=== PATIENT | female | born 1935 | race Caucasian/White ===

== ENCOUNTER 2019-02-06 06:00 | Outpatient (RCR) | payer MEDICARE, SELFPAY | END 2019-03-08 00:01 | LOC: SPT 06:00 | PROVIDERS: Family Provider Internal Medicine; Visit Provider Internal Medicine | DX: N39.46 Mixed incontinence (principal) | CPT/HCPCS: 97140; 97530 ==

== ENCOUNTER 2019-03-09 06:00 | Outpatient (RCR) | payer MEDICARE, SELFPAY | END 2019-04-08 23:59 | disposition home or self-care (01) | LOC: SPT 06:00 | PROVIDERS: Family Provider Internal Medicine; PCP Internal Medicine; Visit Provider Internal Medicine | DX: R32 Unspecified urinary incontinence (principal) ==

== ENCOUNTER 2019-04-19 06:00 | Outpatient (RCR) | payer MEDICARE, SELFPAY | END 2019-05-07 23:59 | disposition home or self-care (01) | LOC: SPT 06:00 | PROVIDERS: Family Provider Internal Medicine; PCP Internal Medicine; Visit Provider Internal Medicine | DX: N39.46 Mixed incontinence (principal) | CPT/HCPCS: 97110; 97140; 97530 ==

== ENCOUNTER 2019-05-03 11:01 | Emergency (ER) | payer MEDICARE, SELFPAY ==
[2019-05-03 11:04] VITALS: BP 166/84; PULSE 57; RESP 16; TEMP 36.4; O2SAT 96; BMI 32.4
--- NOTE | 2019-05-03 11:12 | ED_ITS ---
Entered by Raven Farrell, acting as scribe for oTny Adkins MD, [facility] [place] HPI - Syncope General: Chief Complaint: Syncope Stated Complaint: SYNCOPAL EPISODE Time Seen by Provider: 05/03/19 11:07 Source: patient Mode of arrival: EMS Limitations: no limitations History of Present Illness: HPI narrative: 84 yo Female presents to ED with complaint of syncope. Pt states that she was getting her toenails done and she felt like she was going to pass out. Pt states that she guesses she passed out. Pt states that she has been having episodes like this at home. Pt states that her most recent episode was last week. Pt states that these episodes happen at any time. Pt states that she has never had a heart attack but has had CHF in the past. Pt's caregiver states that the episode lasted about 5 minutes according to the staff at the nail salon. Pt's caregiver states that the nail salon staff reported that it took them that long to get the patient roused and get the daughter's information so that they could call her. Pt's daughter states that the staff reported that the patient went unconscious again after giving her information and the patient was just coming around again when she got to the salon. Pt states that she doesn't remember any of the events following her episode. Pt's daughter states that the salon staff indicated that they thought the patient was having a seizure. complaint: loss of consciousness and seizure Onset (ago): minute(s) (Just prior to arrival) Duration of episode: 5 -: minutes(s) Description of event: post-event confusion Prodromal symptoms: lightheaded Witnessed: Yes - by Bystander Context: at rest Injuries sustained associated with event: none Associated symptoms: Reports lightheadedness and weakness; Deny abdominal pain, chest pain, fever(s), headache(s) or nausea History: previous syncopal episode Treatments prior to arrival: none Review of Systems General: Reports: 10 or more systems reviewed and unremarkable except in HPI and below Const: Denies: fever, chills or body aches Eyes: Denies: change in vision or blurry vision ENMT: Denies: throat pain, enlarged tonsils, painful swallowing, hoarseness, mouth pain or swelling of lips/tongue Card: Reports: lightheadedness; Denies: chest pain, palpitations, irregular heart rhythm, edema or swelling of feet/ankles Resp: Denies: shortness of breath, productive cough or non-productive cough GI: Denies: abdominal pain, nausea or vomiting : Denies: flank pain, difficulty urinating, painful urination, urinary frequency, urinary urgency or urinary hesitancy Musc: Denies: neck pain, back pain or extremity swelling Skin/Breast: Denies: rash, itching or redness Neuro: Reports: weakness in extremities, seizure-like activity and other (syncope); Denies: headache or numbness in extremities Endo: Denies: excessive urination, excessive thirst or tired all the time PFSH ED PFSH: Medical History Benign essential hypertension Chronic diastolic heart failure Glaucoma Mixed hyperlipidemia Nonrheumatic mitral valve regurgitation Rectocele 02/07/2019: Patient reports a bulge at the vaginal opening that has been present for at least 6 weeks. On exam, she was noted to have a first-degree vault prolapse, first-degree cystocele, and second to third-degree rectocele. Patient decided to follow for now. Surgical History History of hysterectomy (~1976) KAROLINE, (unsure if has ovaries). Performed at [facility] in [place], [place] Family History Grandmother Diabetes Maternal Mother Heart disease Father Heart disease Daughter Heart disease Stroke Sister Heart disease Stroke Colon cancer Brother Hypertension Social History Smoking and tobacco status: former smoker Alcohol intake: never Additional social history: Well balanced diet Physical Exam Const: COMMON NORMALS: no apparent distress, average body habitus, oriented x3, no limitations, healthy appearing, alert and well nourished HENMT: COMMON NORMALS: normocephalic, head/scalp atraumatic and moist oral mucous membranes HEAD & SCALP: normocephalic and atraumatic Eye: COMMON NORMALS: PERRL, EOMs intact bilaterally, conjunctivae normal and no scleral icterus CONJUNCTIVA: Yes conjunctivae normal PUPIL: Yes PERRL Neck/C-Spine: COMMON NORMALS: full ROM, supple, no meningeal signs, no JVD and no carotid bruits Chest: COMMONS NORMALS: inspection of chest normal and palpation of chest normal Resp: COMMON NORMALS: normal respiratory effort, no retractions, no use of accessory muscles, clear to auscultation bilaterally and percussion normal AUSCULTATION: clear to auscultation bilaterally PERCUSSION: percussion normal Cardio: COMMON NORMALS: no JVD, regular rate, regular rhythm, S1 normal heart sound, S2 normal heart sound, no gallops, no clicks, no murmurs, no rub and peripheral pulses 2+ throughout RATE: regular rate RHYTHM: regular rhythm HEART SOUNDS: S1 normal and S2 normal PERIPHERAL PULSES: pulses 2+ throughout GI: COMMON NORMALS: normal to inspection, nondistended, normoactive bowel sounds, soft to palpation, non-tender, no hepatosplenomegaly, no masses and no bruits PALPATION: Yes soft and Yes no hepatosplenomegaly : COMMON NORMALS: Yes no CVA tenderness BLADDER/KIDNEY EXAM: Yes no CVA tenderness Back/Pelvis: COMMON NORMALS: no CVA tenderness Extremity: COMMON NORMALS: normal to inspection, full ROM, normal capillary refill, no calf tenderness and no pedal edema Neuro: COMMON NORMALS: oriented x3 SENSORIUM/ORIENTATION: Yes alert MENINGEAL SIGNS: Yes no meningeal signs Skin: COMMON NORMALS: no rashes or lesions noted, no wounds, skin turgor normal, no jaundice, no petechiae and no mottling GENERAL SKIN EXAM: no rashes or lesions noted and turgor normal Course Reevaluation(s): Reevaluation #1: Discussed her lab and imaging findings with patient and her daughters. Negative for acute findings other than prerenal azotemia. We will discharge her home with no new medications. Time: 16:02 Vital Signs: Vital signs: Vital Signs Temperature 97.5 F L 05/03/19 11:04 Pulse Rate 59 L 05/03/19 16:21 Respiratory Rate 19 H 05/03/19 16:21 Blood Pressure 176/65 05/03/19 16:21 Pulse Oximetry 95 05/03/19 16:21 MDM - Syncope MDM Narrative: Medical decision making narrative: 84-year-old female patient who presented to the emergency department with complaints of a syncopal episode while getting her nails done. There are reports that she may have had a seizure but this is uncertain at this time. Evaluation in the emergency department was unremarkable and she is discharged home to follow-up with her primary care provider. No new orders were created. BUN creatinine ratio is elevated showing she has likely prerenal dehydration. 2-hour troponin delta is flat. Medical Records: Attestation: I reviewed the patient's medical records. Lab Data: Attestation: I reviewed the patient's lab results. Labs: Lab Results 05/03/19 05/03/19 05/03/19 Range/Units 11:52 11:52 11:52 WBC 6.9 (4.0-10.0) 10^3/ uL RBC 4.07 L (4.1-5.3) 10^6/u L Hgb 12.0 (11.5-15.3) g/dL Hct 37.1 (37.0-47.0) % MCV 91.2 (81-99) fL MCH 29.5 (28.0-34.0) pg MCHC 32.3 (30.0-36.0) g/dL RDW 12.2 (12.1-15.1) % Plt Count 174 (130-400) 10^3/c mm MPV 11.2 H (7.4-10.4) fL Neut % (Auto) 68.0 % Lymph % (Auto) 21.6 % Person % (Auto) 8.9 % Eos % (Auto) 1.3 % Baso % (Auto) 0.1 % Neut # (Auto) 4.7 (1.8-7.7) 10^3/u L Lymph # (Auto) 1.5 (0.8-4.8) 10^3/u L Person # (Auto) 0.6 (0.2-0.9) 10^3/u L Eos # (Auto) 0.1 (0.0-0.8) 10^3/u L Baso # (Auto) 0.0 (0.0-0.1) 10^3/u L Nucleated RBC % (a uto) 0 % Nucleated RBCs # 0.0 /100WBC D-Dimer 0.62 H (0-0.59) ug/mIFE U Sodium 136 (136-145) mmol/L Potassium 3.5 (3.5-5.1) mmol/L Chloride 100 (98-107) mmol/L Carbon Dioxide 22 (22-29) mmol/L Anion Gap 17.5 (5-19) BUN 40 H (8-23) mg/dL Creatinine 1.1 H (0.5-0.9) mg/dL Glucose 201 H (65-115) mg/dL Calcium 9.9 (8.5-10.5) mg/dL Total Bilirubin 0.6 (0.15-1.2) mg/dL AST 19 (0-32) U/L ALT 17 (0-33) U/L Alkaline Phosphata se 98 (35-105) IU/L Troponin T Baselin e (0-10) ng/mL Troponin T 120 Min poarch (0-10) ng/mL Delta Troponin T (0-10) ABS# NT-Pro-B Natriuret Pep 460 H (0-450) pg/mL Total Protein 6.9 (6.6-8.7) g/dL Albumin 3.8 (3.5-5.2) g/dL Globulin 3.1 (1.3-4.6) g/dL TSH 2.81 (0.27-4.20) uIU/ mL Urine Color (Yellow) Urine Appearance (CLEAR) Urine pH (5-7) Ur Specific Gravit y (1.005-1.030) Urine Protein (Negative) Urine Glucose (UA) (Normal) Urine Ketones (Negative) Urine Blood (Negative) Urine Nitrate (Negative) Urine Bilirubin (NEGATIVE) Urine Urobilinogen (Negative) mg/dL Ur Leukocyte Elle ase (Negative) 05/03/19 05/03/19 05/03/19 Range/Units 11:52 12:45 13:59 WBC (4.0-10.0) 10^3/ uL RBC (4.1-5.3) 10^6/u L Hgb (11.5-15.3) g/dL Hct (37.0-47.0) % MCV (81-99) fL MCH (28.0-34.0) pg MCHC (30.0-36.0) g/dL RDW (12.1-15.1) % Plt Count (130-400) 10^3/c mm MPV (7.4-10.4) fL Neut % (Auto) % Lymph % (Auto) % Person % (Auto) % Eos % (Auto) % Baso % (Auto) % Neut # (Auto) (1.8-7.7) 10^3/u L Lymph # (Auto) (0.8-4.8) 10^3/u L Person # (Auto) (0.2-0.9) 10^3/u L Eos # (Auto) (0.0-0.8) 10^3/u L Baso # (Auto) (0.0-0.1) 10^3/u L Nucleated RBC % (a uto) % Nucleated RBCs # /100WBC D-Dimer (0-0.59) ug/mIFE U Sodium (136-145) mmol/L Potassium (3.5-5.1) mmol/L Chloride (98-107) mmol/L Carbon Dioxide (22-29) mmol/L Anion Gap (5-19) BUN (8-23) mg/dL Creatinine (0.5-0.9) mg/dL Glucose (65-115) mg/dL Calcium (8.5-10.5) mg/dL Total Bilirubin (0.15-1.2) mg/dL AST (0-32) U/L ALT (0-33) U/L Alkaline Phosphata se (35-105) IU/L Troponin T Baselin e 25 H (0-10) ng/mL Troponin T 120 Min poarch 21.55 H (0-10) ng/mL Delta Troponin T -3.45 L (0-10) ABS# NT-Pro-B Natriuret Pep (0-450) pg/mL Total Protein (6.6-8.7) g/dL Albumin (3.5-5.2) g/dL Globulin (1.3-4.6) g/dL TSH (0.27-4.20) uIU/ mL Urine Color Yellow (Yellow) Urine Appearance Clear (CLEAR) Urine pH 7 (5-7) Ur Specific Gravit y 1.005 (1.005-1.030) Urine Protein Neg (Negative) Urine Glucose (UA) Norm (Normal) Urine Ketones Negative (Negative) Urine Blood Neg (Negative) Urine Nitrate Negative (Negative) Urine Bilirubin Neg (NEGATIVE) Urine Urobilinogen Norm (Negative) mg/dL Ur Leukocyte Elle ase Negative (Negative) Imaging Data^: CXR: Radiologist's impression: [place] [address] XRay Report Signed Patient: Zaki Pantoja #: [id number] : 5Acct#:[id number] Age/Sex: 84 / FADM Date: 05/03/19 Loc: ERRoom/Bed: Attending Dr: Ordering Provider/Ordering MD: Tony Adkins MD, [facility] [place] Date of Service: 05/03/19 Procedure(s): XR chest 1V portable [id number] Accession Number(s): [id number] Report Number: [id number] WS: [id number] Portable AP upright chest, 05/03/2019 Clinical Data: syncope Comparison: Portable chest, 07/30/2018. Findings: No nodules, masses or effusions are seen. The heart is normal. The pulmonary vascularity is not increased. No pneumonia or pneumothorax is seen. The aortic arch and descending aorta are minimally tortuous XR/XR chest 1V portable 78831 Impression: Atherosclerosis. Dictated By:Corrina Gusman MD Signed By:Corrina Gusman MDSigned Date/Time:05/03/19 1140 DD/ 1138 CT Head: Radiologist's impression: [place] [address] CT Scan Report Signed Patient: Zaki Pantoja #: [id number] : 5Acct#:[id number] Age/Sex: 84 / FADM Date: 05/03/19 Loc: ERRoom/Bed: Attending Dr: Ordering Provider/Ordering MD: Tony Adkins MD, [facility] [place] Date of Service: 05/03/19 Procedure(s): CT head wo con* [id number] Accession Number(s): [id number] Report Number: [id number] WS: [id number] CT HEAD TECHNIQUE: Noncontrast CT of the head obtained from the skullbase to the vertex. CLINICAL INFORMATION: syncope COMPARISON: 8 ,018 DLP: 754.[address] scans at [facility] use at least one of these dose optimization techniques: automated exposure control; mA and/or kV adjustment per patient size (includes targeted exams where dose is matched to clinical indication); or iterative reconstruction. FINDINGS: No evidence of intracranial hemorrhage or mass effect. Ventricular system and basal cisterns are patent. Mild small vessel changes with moderate parenchymal volume loss. Incidental dystrophic calcification along the falx. No extra-axial fluid collections. No evidence of mass or mass effect. Normal lincoln-white differentiation. Paranasal sinuses and mastoid air cells are well aerated. .Normal visualized soft tissues. Notified Tony Adkins MD MSM at 05/03/2019 12:[address]/CT head wo con* [id number] IMPRESSION: 1. No evidence of intracranial hemorrhage or mass effect. 2. Mild small vessel changes with moderate parenchymal volume loss. 3. Incidental dystrophic calcification along the falx is unchanged. 4. No acute intracranial findings Dictated By:Merrick Wheat MD Signed By:Merrick Wheat MDSigned Date/Time:05/03/19 1232 DD/ 1228 EKG Data^: EKG 1: Attestation: I personally reviewed and interpreted this EKG as follows: EKG interpretation date: 05/03/19 EKG interpretation time: 11:14 Prior EKG tracings: not available for review Interpretation: Sinus bradycardia. Heart rate 52 bpm. Left axis deviation. Right bundle branch block. EKG 2: Attestation: I personally reviewed and interpreted this EKG as follows: EKG interpretation date: 05/03/19 EKG interpretation time: 13:34 Prior EKG tracings: available for review Interpretation: Unchanged from earlier today other than no longer with sinus bradycardia. Normal sinus rhythm Discharge Plan Discharge Patient Disposition: Home, Self-Care Clinical Impression: Dehydration Syncope Qualifiers: Syncope type: unspecified Qualified Code(s): R55 - Syncope and collapse Condition: Stable Prescriptions: Continued isosorbide mononitrate 120 mg tablet extended release 24 hr 120 mg PO DAILY RF: 0 pantoprazole [address] for susp in packet 40 mg PO DAILY RF: 0 brimonidine 0.2 % drops 1 drop ophthalmic (eye) Q8H RF: 0 furosemide 40 mg tablet 40 mg PO DAILY RF: 0 atorvastatin 20 mg tablet 20 mg PO DAILY RF: 0 PreserVision AREDS [id number] capsule 1 cap PO BID RF: 0 timolol maleate 0.5 % drops 1 drop ophthalmic (eye) DAILY RF: 0 Travatan Z 0.004 % drops 1 drop ophthalmic (eye) DAILY RF: 0 spironolactone 25 mg tablet 25 mg PO DAILY RF: 0 oxybutynin chloride 10 mg tablet extended release 24hr 10 mg PO DAILY Qty: 30 RF: 0 carvedilol 12.5 mg Tablet 12.5 mg PO BID RF: 0 losartan 100 mg Tablet 100 mg PO DAILY RF: 0 Discharge Orders: Discharge Order (Routine); Ordered 05/03/19 Ordered By: Tony Adkins Referrals: Mely Combs MD [Primary Care Provider] - 1-3 days Patient Instructions: Dehydration (ED), Syncope (ED) Activity Restrictions/Additional Instructions: Follow-up with your primary care provider tomorrow for further evaluation. You might also need an ultrasound of your carotid arteries. Return for any new or worsening symptoms. Drink plenty of fluids to keep well-hydrated Discharge Date/Time: 05/03/19 16:21 Coding Level of Care Code ED Section Hand for Chg Fwd Exam Comprehensive The documentation recorded by the Bud lovett Carmen, accurately reflects the service I personally performed and the decisions made by Lucille guevara Adegoke I, MD, [facility] [place] May 03, 2019 11:01
--- NOTE | 2019-05-03 11:16 | PC.NURSE ---
ekg done at this time and shown to ed provider.
--- NOTE | 2019-05-03 11:20 | XR_ITS ---
WS: [id number] Portable AP upright chest, 05/03/2019 Clinical Data: syncope Comparison: Portable chest, 07/30/2018. Findings: No nodules, masses or effusions are seen. The heart is normal. The pulmonary vascularity is not increased. No pneumonia or pneumothorax is seen. The aortic arch and descending aorta are minima lly tortuous XR/XR chest 1V portable [id number] Impression: Atherosclerosis.
--- NOTE | 2019-05-03 11:20 | CT_ITS ---
WS: [id number] CT HEAD TECHNIQUE: Noncontrast CT of the head obtained from the skullbase to the vertex. CLINICAL INFORMATION: syncope COMPARISON: 8 21,018 DLP: 754.[address] scans at [facility] use at least one of these dose optimization techniques: automat ed exposure control; mA and/or kV adjustment per patient size (includes targeted exams where dose is matched to clinical indication); or iterative reconstruction. FINDINGS: No evidence of intracranial hemorrhage or mass effect. Ventricular system and basal cisterns are foley nt. Mild small vessel changes with moderate parenchymal volume loss. Incidental dystrophic calcificat ion along the falx. No extra-axial fluid collections. No evidence of mass or mass effect. Normal lincoln -white differentiation. Paranasal sinuses and mastoid air cells are well aerated. .Normal visualized soft tissues. Notified Tony Adkins MD MSM at 05/03/2019 12:[address]/CT head wo con* [id number] IMPRESSION: 1. No evidence of intracranial hemorrhage or mass effect. 2. Mild small vessel changes with moderate parenchymal volume loss. 3. Incidental dystrophic calcification along the falx is unchanged. 4. No acute intracranial findings
--- NOTE | 2019-05-03 11:23 | ECG_ITS ---
Measurements Intervals [place] Rate: 56 P: 93 FL: 202 QRS: -38 QRSD: 145 T: 43 QT: 437 QTc: 425 SINUS BRADYCARDIA MARKED LEFT AXIS DEVIATION [QRS AXIS < -30] RIGHT BUNDLE BRANCH BLOCK [120+ ms QRS DURATION, UPRIGHT V1, 40+ ms S IN I/ I/aVL/V4/V5/V6] Compared to ECG 07/30/2018 20:49:05 Left-axis deviation now present Sinus rhythm no longer present Left anterior fascicular block no longer present Myocardial infarct finding no longer present Electronically Signed On 05-03-2019 19:44:54 COLLECTIONS ASSOCIATE by Kesha Toribio M.D. [email or web address]
[2019-05-03 11:57] LABS: Basophils % 0.1 %; Eosinophils # 0.1 10^3/uL (0.0-0.8); Eosinophils % 1.3 %; Hematocrit 37.1 % (37.0-47.0); Lymphocytes # 1.5 10^3/uL (0.8-4.8); Lymphocytes % 21.6 %; Mean Corpuscular HGB Conc 32.3 g/dL (30.0-36.0); Mean Corpuscular Hemoglobin 29.5 pg (28.0-34.0); Mean Corpuscular Volume 91.2 fL (81-99); Mean Platelet Volume 11.2 fL (7.4-10.4); Monocytes # 0.6 10^3/uL (0.2-0.9); Monocytes % 8.9 %; Neutrophils # 4.7 10^3/uL (1.8-7.7); Nucleated Red Blood Cells % 0 %; Platelet Count 174 10^3/cmm (130-400); Red Blood Count 4.07 10^6/uL (4.1-5.3); Red Cell Distribution Width 12.2 % (12.1-15.1); White Blood Count 6.9 10^3/uL (4.0-10.0)
[2019-05-03 12:23] LABS: Troponin(5th) Baseline 25 ng/mL (0-10)
[2019-05-03 12:30] LABS: Alanine Aminotransferase 17 U/L (0-33); Albumin Level 3.8 g/dL (3.5-5.2); Alkaline Phosphatase 98 IU/L (35-105); Anion Gap 17.5 (5-19); Aspartate Amino Transferase 19 U/L (0-32); Blood Urea Nitrogen 40 mg/dL (8-23); Calcium 9.9 mg/dL (8.5-10.5); Carbon Dioxide 22 mmol/L (22-29); Chloride 100 mmol/L (98-107); D Dimer 0.62 ug/mIFEU (0-0.59); Globulin 3.1 g/dL (1.3-4.6); Glucose 201 mg/dL (65-115); NT Pro B Type Natriuretic Pept 460 pg/mL (0-450); Potassium 3.5 mmol/L (3.5-5.1); Sodium 136 mmol/L (136-145); Thyroid Stimulating Hormone 2.81 uIU/mL (0.27-4.20); Total Bilirubin 0.6 mg/dL (0.15-1.2); Total Protein 6.9 g/dL (6.6-8.7)
[2019-05-03 12:56] VITALS: O2SAT 96
[2019-05-03 13:05] LABS: Add Urine Microscopic? NO
[2019-05-03 13:17] LABS: Bilirubin Urine Neg (NEGATIVE); Blood Urine Neg (Negative); Glucose Urine UA Norm (Normal); Ketones Urine Negative (Negative); Leukocyte Esterase Urine Negative (Negative); Nitrate Urine Negative (Negative); Protein Urine Neg (Negative); Specific Gravity, Urine 1.005 (1.005-1.030); Urine Appearance Clear (CLEAR); Urine Color Yellow (Yellow); Urobilinogen Urine Norm (Negative); pH Urine 7 (5-7)
[2019-05-03] MEDS: sodium chloride 0.9% 1,000 ML 250 ML IV (13:24)
[2019-05-03 14:21] LABS: Troponin 5 2HR 21.55 ng/mL (0-10)
[2019-05-03 14:23] LABS: Troponin 5 2HR Delta -3.45 ABS# (0-10)
[2019-05-03 16:21] VITALS: BP 176/65; PULSE 59; RESP 19; O2SAT 95
--- NOTE | 2019-05-03 17:23 | ECG_ITS ---
Measurements Intervals [place] Rate: 69 P: 73 NH: 200 QRS: -45 QRSD: 142 T: 45 QT: 416 QTc: 447 SINUS RHYTHM RIGHT BUNDLE BRANCH BLOCK [120+ ms QRS DURATION, UPRIGHT V1, 40+ ms S IN I/aVL/V4/V5/V6] LEFT ANTERIOR FASCICULAR BLOCK [QRS AXIS <= -45, QR IN I, RS IN II] Compared to ECG 07/30/2018 20:49:05 Myocardial infarct finding no longer present Electronically Signed On 05-03-2019 20:00:16 REPAIR MECHANIC by Kesha Toribio M.D. [email or web address]
== END 2019-05-03 16:21 | disposition home or self-care (01) ==
PROVIDERS: Emergency Provider Family Medicine; Family Provider Internal Medicine; PCP Internal Medicine
DX: R55 Syncope and collapse (principal); E86.0 Dehydration; I11.0 Hypertensive heart disease with heart failure; I50.22 Chronic systolic (congestive) heart failure; E78.2 Mixed hyperlipidemia; I34.0 Nonrheumatic mitral (valve) insufficiency; H40.9 Unspecified glaucoma; I70.0 Atherosclerosis of aorta; I45.10 Unspecified right bundle-branch block; Z87.891 Personal history of nicotine dependence; Z82.3 Family history of stroke; Z82.49 Family history of ischemic heart disease and other diseases of the circulatory system
CPT/HCPCS: 36415; 70450; 71045; 80053; 81003; 83880; 84443; 84484; 85025; 85378; 93005; 96360; 96361; 99283; A9270; J7030

== ENCOUNTER 2019-05-24 13:27 | Outpatient (CLI) | payer MEDICARE, SELFPAY ==
--- NOTE | 2019-05-24 13:38 | USCV_ITS ---
Marsha Pantoja Age: 84 Gender: F : 1935 Exam Date: 05/24/2019 14:00 Ordering Phys: Mely Combs MD Technologist: Sherly Armstrong [place] [facility] [place]: SYNOPE BP: 162 / 129 HR: 58 Rhythm: Sinus Technical Quality: Adequate MEASUREMENTS (Male / Female) Normal Values 2D ECHO LV Diastolic Diameter PLAX 3.6 cm 4.2 - 5.9 / 3.9 - 5.3 cm LV Systolic Diameter PLAX 2.5 cm LV Chamber Size 2.1 cm IVS Diastolic Thickness 0.9 cm 0.6 - 1.0 / 0.6 - 0.9 cm IVS Systolic Thickness 1.0 cm LVPW Diastolic Thickness 1.3 cm 0.6 - 1.0 / 0.6 - 0.9 cm LVPW Systolic Thickness 1.5 cm RV Chamber Size 2.8 cm LVOT Diameter 2.0 cm LV Ejection Fraction 2D Teich 57.1 % LV Ejection Fraction MOD 2C 71.5 % LV Ejection Fraction 2C AL 71.7 % LA Diameter 3.7 cm LA Width 3.4 cm LA Height 4.5 cm RA Width 2.6 cm RA Height 4.0 cm Aorta at Sinotubular Diameter 2.4 cm M-MODE LV Diastolic Diameter MM 3.5 cm 4.2 - 5.9 / 3.9 - 5.3 cm LV Systolic Diameter MM 2.5 cm LV Ejection Fraction MM Teich 57.8 % IVS Diastolic Thickness MM 0.6 cm 0.6 - 1.0 / 0.6 - 0.9 cm IVS Systolic Thickness MM 0.8 cm LVPW Diastolic Thickness MM 0.6 cm 0.6 - 1.0 / 0.6 - 0.9 cm LVPW Systolic Thickness MM 1.5 cm Aortic Annulus Diameter 3.0 cm LA Ao Ratio MM 1.2 MV E Point Septal Separation 1.0 cm DOPPLER AV Peak Velocity 197.0 cm/s LVOT Peak Velocity 122.0 cm/s AV Area Cont Eq vti 2.2 cm squared AV Area Cont Eq pk 2.0 cm squared MV Area PHT 2.1 cm squared Mitral E to A Ratio 0.6 MV E' Velocity 5.0 cm/s Mitral E to MV E' Ratio 12.7 Mitral E to LV E' Lateral Ratio 13.7 Mitral E to LV E' Septal Ratio 12.0 TR Peak Velocity 243.0 cm/s TR Peak Gradient 23.5 mmHg PV Peak Velocity 113.0 cm/s RV Acceleration Time 0.1 s RV Ejection Time 0.3 s RV AcT/ET 0.2 FINDINGS Left Ventricle Normal left ventricular size and systolic function, EF 66 %. Mild left ventricular hypertrophy. Grade I/IV diastolic dysfunction (abnormal relaxation filling pattern), normal to mildly elevated filling pressures. Right Ventricle The right ventricle is normal in size and function. Right Atrium The right atrium is normal in size. Left Atrium Left atrium, upper limit of normal size. Mitral Valve Thickened mitral valve. Trace mitral valve regurgitation. Aortic Valve Thickened aortic valve with restricted mobility. Tricuspid Valve Mild tricuspid valve regurgitation. Pulmonic Valve Mild pulmonary valve regurgitation. Pericardium Normal pericardium without effusion. Aorta Normal ascending aorta dimension. CONCLUSIONS Normal left ventricular size and systolic function, EF 66 %. Mild left ventricular hypertrophy. Grade I/IV diastolic dysfunction (abnormal relaxation filling pattern), normal to mildly elevated filling pressures. Thickened mitral valve. Trace mitral valve regurgitation. Features of aortic valve sclerosis. Mild pulmonary cannot tricuspid valve regurgitation. Estimated pulmonary artery peak systolic pressure 28 mmHg There is no pericardial effusion. There are no intracardiac masses. Compared to the study from 07/31/2018, the gradient across the aortic valve has decreased Dr Kesha Toribio MD FAC (Electronically Signed) Final Date: 25 May 2019 08:38 S
--- NOTE | 2019-05-24 13:38 | USCV_ITS ---
ScarlettMarsha leslie Age: 84 Gender: F : 1935 Exam Date: 05/24/2019 14:15 Ordering Phys: Mely Combs MD Technologist: Sherly Armstrong [place] [facility] [place]: [place]OPE Risk Factors: Previous Vascular Surgery: Right Brachial BP: / Left Brachial BP: / Right Left Velocity (cm/s) Spectral Plaque Velocity (cm/s) Spectral Plaque Syst/Diast Broadening Syst/Diast Broadening 48.50/ 9.90 Prox CCA 70.30 / 17.40 69.00/ 17.70 Mid CCA 63.30 / 18.60 57.20/ 15.80 Distal CCA 41.90 / 14.00 39.80/ 14.80 Prox ICA 25.60 / 8.90 57.70/ 18.70 Mid ICA 36.60 / 13.10 52.70/ 18.70 Distal ICA 41.30 / 17.20 58.20 ECA 59.10 0.84 ICA/CCA 0.65 Antegrade Vertebral Antegrade 27.90/ 6.00 cm/s 15.00/ 3.10 cm/s Tri Subclavian Tri 41.60 38.50 FINDINGS Minimal plaques at the bifurcations bilaterally. Intimal thickening and minimal plaques in the common carotid arteries bilaterally. Antegrade flow in the vertebral arteries bilaterally. Normal Doppler flow velocities in the external carotid arteries bilaterally CONCLUSIONS Minimal plaques at the bifurcations bilaterally. Intimal thickening and minimal plaques in the common carotid arteries bilaterally. No significant stenosis, based on the above findings. No previous studies are available for comparison. Dr Kesha Toribio MD [facility] (Electronically Signed) Final Date: 25 May 2019 08:41 S
== END 2019-05-24 13:28 | disposition home or self-care (01) ==
PROVIDERS: Family Provider Internal Medicine; PCP Internal Medicine; Referring Provider Internal Medicine Cardiovascular Disease; Visit Provider Internal Medicine
DX: I08.1 Rheumatic disorders of both mitral and tricuspid valves (principal); R55 Syncope and collapse
CPT/HCPCS: 93306; 93880

== ENCOUNTER 2019-05-24 20:02 | Emergency (ER) | payer MEDICARE, SELFPAY ==
[2019-05-24 20:12] VITALS: BP 239/91; PULSE 58; RESP 16; TEMP 36.4; O2SAT 95; BMI 32.5
[2019-05-24 23:22] VITALS: BP 209/108; PULSE 58; RESP 17; O2SAT 96
--- NOTE | 2019-05-24 23:50 | ED_ITS ---
Entered by Mera Willard, acting as scribe for HPI - General Adult General: Chief complaint: General Medical Stated complaint: bp problems Time Seen by Provider: 05/24/19 23:48 Source: patient Mode of arrival: ambulatory Limitations: no limitations History of Present Illness: HPI narrative: 84 yo f came to the er pov for blood pressure problems. Onset was tonight. Pt states that she that they have not changed any medication. Pt has not been out of any medication and has not taken anything over thr counter. Family said that she had an ultrasound early today and pt was having some hypertension issues. Pt has had a temporal headache along with being weak for several days. No difficulty with speech or swallowing no difficulty with ambulation. No nausea vomiting or diarrhea. No vision changes. MD complaint: high blood pressure Onset (ago): day(s) (today) Radiation: non-radiation Severity: mild Relieving factors: none Exacerbating factors: none Associated symptoms: Reports headache(s) (temporal) and weakness; Deny chest pain, dyspnea, malaise, nausea, rash or vomiting Treatments prior to arrival: none Review of Systems General: Reports: other (negative unless marked) Const: Denies: fever, chills, body aches, change in appetite, fatigue or malaise ENMT: Denies: throat pain, ear pain, nasal discharge or nasal congestion Card: Denies: chest pain, edema, shortness of breath on exertion or shortness of breath when lying down Resp: Denies: shortness of breath, productive cough or non-productive cough GI: Denies: abdominal pain, nausea, vomiting, vomiting blood, coffee grounds in vomit, diarrhea, constipation, bloating, blood in stool or black tarry stool : Denies: flank pain, difficulty urinating, painful urination, urinary frequency or urinary urgency Skin/Breast: Denies: rash or itching Neuro: Reports: headache (temporal) and weakness in extremities PFSH ED PFSH: Social History Smoking and tobacco status: never smoked Alcohol intake: never Additional social history: Well balanced diet Physical Exam Const: COMMON NORMALS: no apparent distress GENERAL APPEARANCE: cooperative and comfortable ORIENTATION/CONSCIOUSNESS: Yes awake, Yes oriented to person, Yes oriented to place and Yes oriented to time HENMT: COMMON NORMALS: normocephalic, head/scalp atraumatic, hearing grossly normal bilaterally, external ears normal, EAC's normal, TM's normal bilaterally, nasal mucous membranes and turbinates normal, moist oral mucous membranes and oropharynx normal HEAD & SCALP: normocephalic and atraumatic NOSE: nasal mucous membranes and turbinates normal EXTERNAL EAR: Yes external ears normal EXTERNAL AUDITORY CANAL: EAC's normal TYMPANIC MEMBRANE: TM's normal bilaterally Eye: COMMON NORMALS: PERRL, EOMs intact bilaterally, conjunctivae normal and no scleral icterus CONJUNCTIVA: Yes conjunctivae normal PUPIL: Yes PERRL Neck/C-Spine: COMMON NORMALS: full ROM, no lymphadenopathy, supple and no JVD Lymph: LYMPHATIC: no lymphadenopathy noted and no lymphedema noted Resp: COMMON NORMALS: normal respiratory effort, no retractions, no use of accessory muscles and clear to auscultation bilaterally AUSCULTATION: clear to auscultation bilaterally Cardio: COMMON NORMALS: no JVD, regular rate, regular rhythm and no murmurs RATE: regular rate RHYTHM: regular rhythm GI: COMMON NORMALS: soft to palpation and no hepatosplenomegaly AUSCULTATION: Yes normoactive bowel sounds PALPATION: Yes soft, No tender, No guarding and Yes no hepatosplenomegaly Extremity: COMMON NORMALS: normal to inspection, normal capillary refill, no clubbing, cyanosis or edema, no calf tenderness and no pedal edema Neuro: SENSORIUM/ORIENTATION: Yes oriented to person, Yes oriented to place and Yes oriented to time Skin: COMMON NORMALS: no rashes or lesions noted GENERAL SKIN EXAM: no rashes or lesions noted Course ED course: Patient blood pressures improved with hydralazine we will go ahead and discharge home started on hydralazine 25 3 times daily based on her heart rate she is maxed out on carvedilol she is maxed out on losartan she is had trouble in the past with amlodipine. She follow-up with her primary care doctor the next 5 to 7 days advised keeping blood pressure log daily blood pressures bring that to her next appointment to review and adjust medications return if has problems. Vital Signs: Vital signs: Vital Signs Temperature 97.6 F 05/24/19 20:12 Pulse Rate 68 05/25/19 02:09 Respiratory Rate 18 05/25/19 02:09 Blood Pressure 153/75 05/25/19 02:09 Pulse Oximetry 94 05/25/19 02:09 [facility] - General Adult Lab Data: Labs: Lab Results 05/24/19 05/24/19 Range/Units 21:15 21:15 WBC Cancelled Corrected WBC Cancelled RBC Cancelled Hgb Cancelled Hct Cancelled MCV Cancelled MCH Cancelled MCHC Cancelled RDW Cancelled Plt Count Cancelled MPV Cancelled Gran % Cancelled Neut % (Auto) Cancelled Lymph % (Auto) Cancelled [place] % (Auto) Cancelled Eos % (Auto) Cancelled Baso % (Auto) Cancelled Neut # (Auto) Cancelled Lymph # (Auto) Cancelled [place] # (Auto) Cancelled Eos # (Auto) Cancelled Baso # (Auto) Cancelled Absolute Gran (aut o) Cancelled Nucleated RBC % (a uto) Cancelled Nucleated RBCs # Cancelled Sodium Cancelled Potassium Cancelled Chloride Cancelled Carbon Dioxide Cancelled Anion Gap Cancelled BUN Cancelled Creatinine Cancelled GFR Calculation Cancelled Glucose Cancelled Calculated Osmolal ity Cancelled Calcium Cancelled Total Bilirubin Cancelled AST Cancelled ALT Cancelled Alkaline Phosphata se Cancelled Total Protein Cancelled Albumin Cancelled Globulin Cancelled Discharge Plan Discharge Patient Disposition: Home, Self-Care Clinical Impression: Benign essential hypertension Condition: Stable Prescriptions: New hydralazine 25 mg tablet 25 mg PO TID Qty: 30 RF: 0 No Action isosorbide mononitrate 120 mg tablet extended release 24 hr 120 mg PO DAILY RF: 0 pantoprazole [address] for susp in packet 40 mg PO DAILY RF: 0 brimonidine 0.2 % drops 1 drop ophthalmic (eye) Q8H RF: 0 furosemide 40 mg tablet 40 mg PO DAILY RF: 0 atorvastatin 20 mg tablet 20 mg PO DAILY RF: 0 PreserVision AREDS [id number] capsule 1 cap PO BID RF: 0 timolol maleate 0.5 % drops 1 drop ophthalmic (eye) DAILY RF: 0 Travatan Z 0.004 % drops 1 drop ophthalmic (eye) DAILY RF: 0 spironolactone 25 mg tablet 25 mg PO DAILY RF: 0 magnesium L-lactate [Magtab] 84 mg tablet extended release 84 mg PO BID 30 Days Qty: 60 RF: 4 oxybutynin chloride 10 mg tablet extended release 24hr 10 mg PO DAILY Qty: 30 RF: 0 carvedilol 12.5 mg Tablet 12.5 mg PO BID RF: 0 losartan 100 mg Tablet 100 mg PO DAILY RF: 0 Discharge Orders: Discharge Order (Routine); Ordered 05/25/19 Ordered By: Gerald Silva Referrals: Mely Combs MD [Primary Care Provider] - Discharge Diet: Usual diet Discharge Activity: Increase activity as tolerated Activity Restrictions/Additional Instructions: Follow-up with your primary care doctor within the next 4 to 5 days to recheck on your blood pressure Discharge Date/Time: 05/25/19 02:09 Coding Level of Care Code ED Smooth Stucco Resurfacer for Chg Fwd Exam Comprehensive The documentation recorded by the Sudheer lovett Stephanie Lyn, accurately reflects the service I personally performed and the decisions made by Shira guevara Curtis L, DO May 24, 2019 20:02
[2019-05-25 00:12] VITALS: BP 198/87; PULSE 64; RESP 18; O2SAT 96
[2019-05-25] MEDS: hyDRALAzine 20 mg/mL INJ 1 mL 10 MG IVP (01:25)
[2019-05-25 02:09] VITALS: BP 153/75; PULSE 68; RESP 18; O2SAT 94
== END 2019-05-25 02:09 | disposition home or self-care (01) ==
PROVIDERS: Emergency Provider Family Medicine; Family Provider Internal Medicine; PCP Internal Medicine
DX: I10 Essential (primary) hypertension (principal)
CPT/HCPCS: 12345; 36415; 80053; 85025; 96374; 99282; 99283; A9270; J0360

== ENCOUNTER 2020-01-18 15:25 | Outpatient (CLI) | payer MEDICARE, SELFPAY ==
--- NOTE | 2020-01-18 15:30 | MR_ITS ---
WS: [id number] MRI HEAD WITHOUT CONTRAST TECHNIQUE: Sagittal T1, T2 axial, T2 axial FLAIR, axial and coronal T1 images, axial susceptibility w eighted imaging, axial diffusion weighted images, and coronal T2 images were obtained. CLINICAL INFORMATION: APHASIA COMPARISON: CT May 03, 2019 and MRI FINDINGS: No evidence of restricted diffusion to suggest acute ischemia. Ventricular system and basal cisterns are patent. Moderate small vessel changes. Moderate parenchymal volume loss. Small vessel changes in the shaista. Normal posterior fossa. Normal vascular flow voids at the skull base. No extra-axial fluid collections. Mild mucosal thickening in the paranasal sinuses and right sphenoid sinus. Mastoid air c ells are well aerated. No hemosiderin on the susceptibility weighted images. Dystrophic calcification along the sagittal sin us. Normal optic chiasm and pituitary infundibulum. Mild to moderate symmetric atrophy involving the temp oral lobes and hippocampal formations. MR/MR head wo con* [id number] IMPRESSION: 1. No evidence of restricted diffusion to suggest acute ischemia. 2. Moderate small vessel changes with moderate parenchymal volume loss. Small vessel changes progressed since MRI in 2017 3. Mild to moderate symmetric atrophy involving the temporal lobes and hippoca mpal formations. 4. No hemosiderin on the susceptibility weighted images. 5. Mild mucosal thickening in the paranasal sinuses.
== END 2020-01-18 15:26 | disposition home or self-care (01) ==
LOC: RADSHAW 15:28
PROVIDERS: Family Provider Internal Medicine; PCP Internal Medicine; Visit Provider Internal Medicine
DX: R47.01 Aphasia (principal); G31.9 Degenerative disease of nervous system, unspecified
CPT/HCPCS: 70551

== ENCOUNTER 2020-01-20 14:11 | Emergency (ER) | payer MEDICARE, SELFPAY ==
[2020-01-20] VITALS (8 sets, daily range): BP systolic 165–214; BP diastolic 85–104; PULSE 68–78; RESP 16–21; TEMP 37; O2SAT 94–98; BMI 30.7
[2020-01-20 17:50] LABS: Basophils % 0.4 %; Eosinophils # 0.1 10^3/uL (0.0-0.8); Eosinophils % 1.3 %; Hematocrit 44.4 % (37.0-47.0); Hemoglobin 14.3 g/dL (11.5-15.3); Lymphocytes # 1.9 10^3/uL (0.8-4.8); Lymphocytes % 26.8 %; Mean Corpuscular HGB Conc 32.2 g/dL (30.0-36.0); Mean Corpuscular Hemoglobin 29.4 pg (28.0-34.0); Mean Corpuscular Volume 91.2 fL (81-99); Mean Platelet Volume 10.9 fL (7.4-10.4); Monocytes # 0.6 10^3/uL (0.2-0.9); Monocytes % 7.9 %; Neutrophils # 4.52 10^3/uL (1.8-7.7); Neutrophils % 63.5 %; Nucleated Red Blood Cells % 0 %; Platelet Count 187 10^3/cmm (130-400); Red Blood Count 4.87 10^6/uL (4.1-5.3); Red Cell Distribution Width 12.7 % (12.1-15.1); White Blood Count 7.1 10^3/uL (4.0-10.0)
[2020-01-20 18:11] LABS: Anion Gap 14.6 (5-19); Blood Urea Nitrogen 16 mg/dL (8-23); Calcium 9.9 mg/dL (8.5-10.5); Carbon Dioxide 22 mmol/L (22-29); Chloride 107 mmol/L (98-107); Glucose 117 mg/dL (65-115); Osmolality Calculated 292 mOsm/kg (285-295); Potassium 3.6 mmol/L (3.5-5.1); Sodium 140 mmol/L (136-145)
--- NOTE | 2020-01-20 18:12 | XRR_ITS ---
PROCEDURE INFORMATION: Exam: XR Chest, 1 View Exam date and time: 01/20/2020 6:23 PM Age: 84 years old Clinical indication: Chest pain; Additional info: Uncontrolled HTN, chest discomfort TECHNIQUE: Imaging protocol: XR of the chest Views: 1 view. COMPARISON: CR XR chest 1V portable [id number] 05/03/2019 11:42 AM FINDINGS: Lungs: Unremarkable. No consolidation. Evidence of antecedent granulomatous disease. Pleural space: Unremarkable. No pleural effusion. No pneumothorax. Heart/Mediastinum: Unremarkable. No cardiomegaly. Bones/joints: Unremarkable for age. XR/XR chest 1V portable [id number] IMPRESSION: No acute findings.
--- NOTE | 2020-01-20 18:13 | W.ED.GENADLT ---
HPI - General Adult General: Chief complaint: General Medical Stated complaint: HIGH BP Time Seen by Provider: 01/20/20 18:12 Source: patient Mode of arrival: ambulatory Limitations: no limitations History of Present Illness: HPI narrative: Patient comes in today for concerns of elevated blood pressure. Patient reports mild headache that has basically resolved since returning to the ER. Patient denies any neuro deficits. Patient denies any weakness. Patient has a recent blood pressure change due to poor control of her blood pressure. Patient appears well. Associated symptoms: Reports headache(s) Review of Systems General: Reports: 10 or more systems reviewed and unremarkable except in HPI and below Neuro: Reports: headache(s) PFSH ED PFSH: Medical History (Updated 01/20/20 @ 18:51 by LINCOLN Santana) Benign essential hypertension Chronic diastolic heart failure Glaucoma Mixed hyperlipidemia Nonrheumatic mitral valve regurgitation Rectocele 02/07/2019: Patient reports a bulge at the vaginal opening that has been present for at least 6 weeks. On exam, she was noted to have a first-degree vault prolapse, first-degree cystocele, and second to third-degree rectocele. Patient decided to follow for now. Syncope and collapse Surgical History History of hysterectomy (~1976) KAROLINE, (unsure if has ovaries). Performed at [facility] in [place], [place] Family History Grandmother Diabetes Maternal Mother Heart disease Father Heart disease Daughter Heart disease Stroke Sister Heart disease Stroke Colon cancer Brother Hypertension Social History Smoking and tobacco status: never smoked Alcohol intake: never Additional social history: Well balanced diet Physical Exam Const: COMMON NORMALS: no acute distress and patient oriented x3 GENERAL APPEARANCE: cooperative HENMT: COMMON NORMALS: normocephalic, TM's normal bilaterally and Normal external nose present HEAD & SCALP: normal to inspection and normocephalic NOSE: Normal external nose present TYMPANIC MEMBRANE: TM's normal bilaterally MOUTH: Normal oral and palatal mucosa present THROAT: posterior oropharynx normal Eye: GENERAL EYE: appearance normal, both eyes and all related structures Neck/C-Spine: COMMON NORMALS: full ROM Lymph: LYMPHATIC: no lymphadenopathy noted Chest: COMMONS NORMALS: normal inspection of the chest Resp: COMMON NORMALS: normal respiratory effort EFFORT & INSPECTION: Yes able to speak in complete sentences Cardio: COMMON NORMALS: regular rate and regular rhythm RATE: regular rate RHYTHM: regular rhythm GI: COMMON NORMALS: non-tender : COMMON NORMALS: Yes no CVA tenderness BLADDER/KIDNEY EXAM: Yes no CVA tenderness Back/Pelvis: COMMON NORMALS: no CVA tenderness and thoracic and lumbar spine normal to inspection Extremity: COMMON NORMALS: normal to inspection Neuro: COMMON NORMALS: patient oriented x3 and moves all extremities Psych: COMMON NORMALS: mental status grossly normal and cooperative Skin: COMMON NORMALS: no rashes or lesions noted GENERAL SKIN EXAM: no rashes or lesions noted Course ED course: Patient presents with a mild headache and elevated blood pressure. Patient appears well. Patient denies any chest pain or difficulty breathing. On exam lungs were clear to auscultation. No focal neural deficits were noted. No sensory deficit was noted. Patient moves all extremities well. Blood pressure was elevated at 212 systolic. Auscultated heart tones were normal. Differential diagnosis includes CHF, uncontrolled hypertension, electrolyte disturbance. Laboratory values were unremarkable. BNP was slightly elevated at 1400 which is over patient's normal 400. Patient was given 1 clonidine 0.1 mg for control of blood pressure which showed good improvement bring the systolic down to 165. Patient was given 1 dose of furosemide 40 mg along with 20 mEq of potassium. Reviewed exam recommended continued treatment with routine medications. Recommend follow-up with primary care for reevaluation on Thursday or Thursday of next week. I did write for patient a clonidine prescription to use for as needed elevated blood pressure. Patient and family both reported understanding. Vital Signs: Vital signs: Vital Signs Temperature 98.6 F 01/20/20 14:45 Pulse Rate 68 01/20/20 19:34 Respiratory Rate 19 H 01/20/20 19:34 Blood Pressure 198/104 01/20/20 19:18 Pulse Oximetry 96 01/20/20 19:34 MDM - General Adult Lab Data: Labs: Lab Results 01/20/20 01/20/20 01/20/20 Range/Units 17:40 17:40 17:40 WBC 7.1 (4.0-10.0) 10^3/ uL RBC 4.87 (4.1-5.3) 10^6/u L Hgb 14.3 (11.5-15.3) g/dL Hct 44.4 (37.0-47.0) % MCV 91.2 (81-99) fL MCH 29.4 (28.0-34.0) pg MCHC 32.2 (30.0-36.0) g/dL RDW 12.7 (12.1-15.1) % Plt Count 187 (130-400) 10^3/c mm MPV 10.9 H (7.4-10.4) fL Neut % (Auto) 63.5 % Lymph % (Auto) 26.8 % [place] % (Auto) 7.9 % Eos % (Auto) 1.3 % Baso % (Auto) 0.4 % Neut # (Auto) 4.52 (1.8-7.7) 10^3/u L Lymph # (Auto) 1.9 (0.8-4.8) 10^3/u L [place] # (Auto) 0.6 (0.2-0.9) 10^3/u L Eos # (Auto) 0.1 (0.0-0.8) 10^3/u L Baso # (Auto) 0.0 (0.0-0.1) 10^3/u L Nucleated RBC % (a uto) 0 % Nucleated RBCs # 0.0 /100WBC Sodium 140 (136-145) mmol/L Potassium 3.6 (3.5-5.1) mmol/L Chloride 107 (98-107) mmol/L Carbon Dioxide 22 (22-29) mmol/L Anion Gap 14.6 (5-19) BUN 16 (8-23) mg/dL Creatinine 0.5 (0.5-0.9) mg/dL GFR Calculation Not Reportable Glucose 117 H (65-115) mg/dL Calculated Osmolal ity 292 (285-295) mOsm/k g Calcium 9.9 (8.5-10.5) mg/dL NT-Pro-B Natriuret Pep 1416 H (0-450) pg/mL Discharge Plan Discharge Patient Disposition: Home Clinical Impression: Benign essential hypertension Condition: Stable Prescriptions: New clonidine HCl 0.1 mg tablet 0.1 mg PO BID PRN (Reason: blood pressure greater than 180 systolic) Qty: 60 RF: 0 No Action isosorbide mononitrate 120 mg tablet extended release 24 hr 120 mg PO DAILY RF: 0 brimonidine 0.2 % drops 1 drop ophthalmic (eye) BID RF: 0 furosemide 40 mg tablet 40 mg PO DAILY RF: 0 atorvastatin 20 mg tablet 20 mg PO DAILY RF: 0 PreserVision AREDS [id number] capsule 1 cap PO BID RF: 0 timolol maleate 0.5 % drops 1 drop ophthalmic (eye) BID RF: 0 hydralazine 25 mg tablet 25 mg PO TID 90 Days Qty: 270 RF: 3 oxybutynin chloride 10 mg tablet extended release 24hr 10 mg PO DAILY Qty: 30 RF: 0 carvedilol 12.5 mg tablet 6.25 mg PO BID RF: 0 losartan 100 mg tablet 100 mg PO DAILY RF: 0 cefuroxime axetil 250 mg tablet See Rx Instructions .ROUTE .COMPLEX RF: 0 latanoprost 0.005 % drops 1 drp ophthalmic (eye) DAILY RF: 0 Referrals: Mely Combs MD [Primary Care Provider] - Patient Instructions: Hypertensive Crisis (ED) Activity Restrictions/Additional Instructions: Home and rest. Activity as tolerated. Healthy diet. Continue routine medications as directed. Use clonidine 0.1 mg as needed for a systolic blood pressure greater than 180. Follow-up with primary care for repeat evaluation of blood pressure and medication changes as needed. Return to the emergency department for chest pain, shortness of breath, or severe uncontrolled headache or new concerns. Coding Level of Care Code ED Parts Processor for Ally Meredith Exam Comprehensive
[2020-01-20] MEDS: cloNIDine 0.1 mg Tablet PO (18:28)
[2020-01-20 18:48] LABS: NT Pro B Type Natriuretic Pept 1416 pg/mL (0-450)
[2020-01-20] MEDS: potassium chloride ER 10 mEq Tablet 20 MEQ PO (20:03)
[2020-01-20] MEDS: FUROsemide 40 mg Tablet PO (20:04)
== END 2020-01-20 20:16 | disposition home or self-care (01) ==
PROVIDERS: Family Medicine; Emergency Provider Nurse Practitioner Family; PCP Internal Medicine
DX: I11.0 Hypertensive heart disease with heart failure (principal); I50.32 Chronic diastolic (congestive) heart failure; E78.2 Mixed hyperlipidemia
CPT/HCPCS: 12345; 71045; 80048; 83880; 85025; 96374; 99281; 99283

== ENCOUNTER 2020-02-28 12:57 | Emergency (ER) | payer MEDICARE, SELFPAY ==
[2020-02-28 13:05] VITALS: BP 164/66; PULSE 58; RESP 18; TEMP 36.8; O2SAT 97; BMI 29.2
--- NOTE | 2020-02-28 13:06 | ECG_ITS ---
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 Measurements Intervals [place] Rate: 53 P: 74 IN: 187 QRS: -22 QRSD: 142 T: 40 QT: 486 QTc: 458 Interpretive Statements SINUS BRADYCARDIA BORDERLINE LEFT AXIS DEVIATION [QRS AXIS < -20] RIGHT BUNDLE BRANCH BLOCK [120+ ms QRS DURATION, UPRIGHT V1, 40+ ms S IN I/aVL/V4/V5/V6] Compared to ECG 05/03/2019 13:33:56 Sinus rhythm no longer present Left anterior fascicular block no longer present Electronically Signed On 02-28-2020 18:34:27 BED MANAGER by Clarke Kirkpatrick M.D. [id number]
--- NOTE | 2020-02-28 13:06 | CT_ITS ---
WS: [id number] CT ABDOMEN AND PELVIS WITH CONTRAST HISTORY: Left-sided abdominal pain for one day. TECHNIQUE: Imaging performed of the abdomen and pelvis with IV contrast. Single phase imaging of the abdomen. Coronal and sagittal reformats are submitted. All CT scans at [facility] use at least one of these dose optimization techniques: automated exposure control; mA and/or kV adjustment per patient size (includes targeted exams where dose is matched to clinical indication); or iterativ e reconstruction. IV CONTRAST: Omnipaque 300; 95 mL IV. Oral contrast: No DLP: 889.94 mGy.cm COMPARISON: None available. Lower thorax: Lung bases are clear. Enlarged heart. Small hiatal hernia. Liver/biliary system: Normal size with no intrahepatic dilatation. Gallbladder: Contracted gallbladder. No wall thickening identified. Pancreas: Atrophied pancreas. No mass or pancreatitis. Spleen: Normal. Adrenal glands: Normal. Right kidney: Mild diffuse cortical atrophy. No obstruction. There are numerous hypodensities. These are too small to characterize. No obstruction. Left kidney: Cortical atrophy and too small to characterize hypodensities. Aorta: Moderate atherosclerosis with no aneurysm. Lymphadenopathy: None. Free fluid: None. GI tract: Lobulated soft tissue mass exophytic from the posterior cecum measures 17 x 17 mm. The appe ndix is not definitely identified. No GI tract obstruction. There is mild mucosal thickening involvin g the transverse colon which may represent a very mild colitis. No obstruction. Abdominal wall: Fat containing umbilical hernia. Pelvis: Prior hysterectomy. No free fluid or adenopathy. Bones: Moderate spondylitic changes in the lumbar spine. No osteoblastic or osteolytic bone disease. CT/CT abdomen pelvis w con* [id number] IMPRESSION: 1. No GI tract obstruction. 2. Mild mucosal thickening involving the transverse colon, consider mild colit is. 3. Lobulated soft tissue mass from the posterior cecum measures 17 x 17 mm. Prabhjot plasm needs to be considered as a possible diagnosis. Recommend surgical evalua tion. The appendix is not identified as a discrete separate structure. Exophyti c soft tissue mass does not appear to be the appendix. 4. Bilateral renal cysts and too small to characterize hypodensities.
[2020-02-28 13:23] VITALS: BP 168/66; PULSE 55; RESP 17; O2SAT 96
--- NOTE | 2020-02-28 13:57 | ED_ITS ---
HPI - Abdominal Pain General: Chief Complaint: Abdominal Pain Stated Complaint: ABDOMINAL PAIN Time Seen by Provider: 02/28/20 13:05 History of Present Illness: HPI narrative: 84-year-old female presents to the emergency room with complaints of abdominal discomfort primarily in the left lower quadrant began in the last 3 hours. She had some loose stools she has had some nausea as well. She denies any dysuria urgency or frequency. No fever sweats or chills no medication on hematemesis coffee-ground emesis MD elicited complaint: abdominal pain Pertinent past history: diverticulitis Onset (ago): hour(s) Pain Consistency: constant Location: LLQ and Suprapubic Quality: cramping Radiation: suprapubic Exacerbating factors: nothing Relieving factors: nothing Associated Symptoms: Reports bloating, change in stool character, diarrhea and nausea; Denies dyspepsia, dysuria, excessive flatus, fever(s), heartburn, hematuria, hematemesis, fecal incontinence, loose stools, melena, poor appetite, syncope and vomiting Review of Systems Const: Denies: fever(s) ENMT: Denies: throat pain, ear or mastoid pain, nasal discharge or nasal congestion Card: Denies: syncope Resp: Denies: dyspnea, productive cough or non-productive cough GI: Reports: abdominal pain, nausea, diarrhea, bloating and change in stool character; Denies: vomiting, hematemesis, heartburn, excessive flatus, fecal incontinence or melena : Denies: dysuria or hematuria Skin/Breast: Denies: rash or pruritus [facility] ED PFSH: Medical History (Updated 02/28/20 @ 17:38 by Gerald Silva DO) Benign essential hypertension Chronic diastolic heart failure Glaucoma Mixed hyperlipidemia Nonrheumatic mitral valve regurgitation Rectocele 02/07/2019: Patient reports a bulge at the vaginal opening that has been present for at least 6 weeks. On exam, she was noted to have a first-degree vault prolapse, first-degree cystocele, and second to third-degree rectocele. Patient decided to follow for now. Syncope and collapse Surgical History History of hysterectomy (~1976) KAROLINE, (unsure if has ovaries). Performed at [facility] in [place], [place] Family History Grandmother Diabetes Maternal Mother Heart disease Father Heart disease Daughter Heart disease Stroke Sister Heart disease Stroke Colon cancer Brother Hypertension Social History Smoking and tobacco status: never smoked Alcohol intake: never Additional social history: Well balanced diet Physical Exam Const: COMMON NORMALS: no acute distress GENERAL APPEARANCE: cooperative and comfortable ORIENTATION/CONSCIOUSNESS: Yes awake, Yes oriented to person, Yes oriented to place and Yes oriented to time HENMT: COMMON NORMALS: normocephalic, atraumatic and hearing grossly normal bilaterally HEAD & SCALP: normocephalic and atraumatic Neck/C-Spine: COMMON NORMALS: no JVD Resp: COMMON NORMALS: normal respiratory effort, No retractions, No use of accessory muscles and clear to auscultation bilaterally AUSCULTATION: clear to auscultation bilaterally Cardio: COMMON NORMALS: no JVD, regular rate, regular rhythm and No murmurs present (Cardio) RATE: regular rate RHYTHM: regular rhythm GI: COMMON NORMALS: Soft to palpation and No hepatosplenomegaly present AUSCULTATION: Yes normoactive bowel sounds PALPATION: Yes Soft to palpation, Yes Tenderness to palpation present (GI) Details: LLQ, No Guarding due to palpation present (GI) and Yes No hepatosplenomegaly present Extremity: COMMON NORMALS: normal to inspection, capillary refill normal, no clubbing, cyanosis or edema, no calf tenderness and no pedal edema Neuro: SENSORIUM/ORIENTATION: Yes oriented to person, Yes oriented to place and Yes oriented to time Skin: COMMON NORMALS: no rashes or lesions noted GENERAL SKIN EXAM: no rashes or lesions noted Course Vital Signs: Vital signs: Vital Signs Temperature 98.3 F 02/28/20 13:05 Pulse Rate 63 02/28/20 16:23 Respiratory Rate 15 02/28/20 16:23 Blood Pressure 114/95 02/28/20 16:23 Pulse Oximetry 96 02/28/20 16:23 MDM - Abdominal Pain MDM Narrative: Medical decision making narrative: Reviewed findings with the patient. Does not appear she has an acute diverticulitis or appendicitis. 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 surgery for further evaluation of the cecal mass Lab Data: Attestation: I reviewed the patient's lab results. Labs: Lab Results 02/28/20 02/28/20 02/28/20 Range/Units 14:25 14:25 15:10 WBC 7.6 (4.0-10.0) 10^3/ uL RBC 4.14 (4.1-5.3) 10^6/u L Hgb 12.5 (11.5-15.3) g/dL Hct 39.5 (37.0-47.0) % MCV 95.4 (81-99) fL MCH 30.2 (28.0-34.0) pg MCHC 31.6 (30.0-36.0) g/dL RDW 13.0 (12.1-15.1) % Plt Count 108 L (130-400) 10^3/c mm MPV 12.3 H (7.4-10.4) fL Neut % (Auto) 72.1 % Lymph % (Auto) 19.4 % Beadle % (Auto) 7.2 % Eos % (Auto) 0.9 % Baso % (Auto) 0.3 % Neut # (Auto) 5.49 (1.8-7.7) 10^3/u L Lymph # (Auto) 1.5 (0.8-4.8) 10^3/u L Beadle # (Auto) 0.6 (0.2-0.9) 10^3/u L Eos # (Auto) 0.1 (0.0-0.8) 10^3/u L Baso # (Auto) 0.0 (0.0-0.1) 10^3/u L Nucleated RBC % (a uto) 0 % Nucleated RBCs # 0.0 /100WBC Sodium 139 (136-145) mmol/L Potassium 4.1 (3.5-5.1) mmol/L Chloride 104 (98-107) mmol/L Carbon Dioxide 24 (22-29) mmol/L Anion Gap 15.1 (5-19) BUN 19 (8-23) mg/dL Creatinine 0.8 (0.5-0.9) mg/dL GFR Calculation Not Reportable Glucose 166 H (65-115) mg/dL Calculated Osmolal ity 294 (285-295) mOsm/k g Calcium 9.1 (8.5-10.5) mg/dL Total Bilirubin 0.5 (0.15-1.2) mg/dL AST 24 (0-32) U/L ALT 20 (0-33) U/L Alkaline Phosphata se 88 (35-105) IU/L Total Protein 6.5 L (6.6-8.7) g/dL Albumin 3.5 (3.5-5.2) g/dL Globulin 3.0 (1.3-4.6) g/dL Urine Color Yellow (Yellow) Urine Appearance Clear (CLEAR) Urine pH 7 (5-7) Ur Specific Gravit y 1.010 (1.005-1.030) Urine Protein 1+ H (Negative) Urine Glucose (UA) Norm (Normal) Urine Ketones Negative (Negative) Urine Blood Neg (Negative) Urine Nitrate Negative (Negative) Urine Bilirubin Neg (Negative) Urine Urobilinogen Norm (Negative) mg/dL Ur Leukocyte Elle ase Negative (Negative) Urine RBC None (0-2) /hpf Urine WBC None (0-5) /hpf Ur Squamous Epith Cells 0-4 H (0-5) /hpf Amorphous Sediment Not Reportable Urine Bacteria Trace (NONE) /hpf Discharge Plan Discharge Patient Disposition: Home Clinical Impression: Abdominal pain, Cecum mass Condition: Stable Prescriptions: New hydrocodone-acetaminophen 5-325 mg tablet 1 tab PO Q6H PRN (Reason: pain) Qty: 12 RF: 0 Zofran 4 mg tablet 4 mg PO Q6H PRN (Reason: nausea and vomiting) Qty: 20 RF: 0 No Action isosorbide mononitrate 120 mg tablet extended release 24 hr 120 mg PO DAILY@08 RF: 0 brimonidine 0.2 % drops 1 drop ophthalmic (eye) BID@ RF: 0 atorvastatin 20 mg tablet 20 mg PO DAILY@08 RF: 0 PreserVision AREDS [id number]-na-gehq capsule 1 cap PO DAILY@08 RF: 0 timolol maleate 0.5 % drops 1 drop ophthalmic (eye) BID@ RF: 0 carvedilol 12.5 mg tablet 6.25 mg PO BID@ RF: 0 losartan 100 mg tablet 100 mg PO DAILY@08 RF: 0 latanoprost 0.005 % drops 1 drp ophthalmic (eye) DAILY@22 RF: 0 clonidine HCl 0.1 mg tablet 0.1 mg PO BID PRN (Reason: blood pressure greater than 180 systolic) Qty: 60 RF: 0 furosemide 20 mg tablet 20 mg PO DAILY@08 RF: 0 oxybutynin chloride 10 mg tablet extended release 24hr 10 mg PO DAILY@08 RF: 0 hydralazine 25 mg tablet 25 mg PO BID@08,22 RF: 0 Discharge Orders: Discharge ED (Routine); Ordered 02/28/20 Ordered By: Gerald Silva Referrals: Mely Combs MD [Primary Care Provider] - Discharge Diet: Clear Liquid Discharge Activity: Increase activity as tolerated Patient Instructions: Abdominal Pain (ED) Activity Restrictions/Additional Instructions: His management will call to make arrangements for you to be seen by a surgeon to evaluate the cecal mass. If the abdominal pain gets worse return. Clear liquid diet for the next 24 to 48 hours. Coding Level of Care Code ED Department Traffic Freight Router for Ally Fwjessica Exam Comprehensive
[2020-02-28] MEDS: ondansetron 2 mg/ML SDV 2 mL 4 MG IVP (14:21)
[2020-02-28] MEDS: sodium chloride 0.9% 1,000 ML 999 ML IV (14:21)
[2020-02-28 14:23] VITALS: BP 173/82; PULSE 57; RESP 19; O2SAT 95
[2020-02-28 14:40] LABS: Basophils % 0.3 %; Eosinophils # 0.1 10^3/uL (0.0-0.8); Eosinophils % 0.9 %; Hematocrit 39.5 % (37.0-47.0); Hemoglobin 12.5 g/dL (11.5-15.3); Lymphocytes # 1.5 10^3/uL (0.8-4.8); Lymphocytes % 19.4 %; Mean Corpuscular HGB Conc 31.6 g/dL (30.0-36.0); Mean Corpuscular Hemoglobin 30.2 pg (28.0-34.0); Mean Corpuscular Volume 95.4 fL (81-99); Mean Platelet Volume 12.3 fL (7.4-10.4); Monocytes # 0.6 10^3/uL (0.2-0.9); Monocytes % 7.2 %; Neutrophils # 5.49 10^3/uL (1.8-7.7); Neutrophils % 72.1 %; Nucleated Red Blood Cells % 0 %; Platelet Count 108 10^3/cmm (130-400); Red Blood Count 4.14 10^6/uL (4.1-5.3); White Blood Count 7.6 10^3/uL (4.0-10.0)
[2020-02-28 14:49] LABS: Alanine Aminotransferase 20 U/L (0-33); Albumin Level 3.5 g/dL (3.5-5.2); Alkaline Phosphatase 88 IU/L (35-105); Blood Urea Nitrogen 19 mg/dL (8-23); Calcium 9.1 mg/dL (8.5-10.5); Carbon Dioxide 24 mmol/L (22-29); Chloride 104 mmol/L (98-107); Glucose 166 mg/dL (65-115); Osmolality Calculated 294 mOsm/kg (285-295); Sodium 139 mmol/L (136-145); Total Bilirubin 0.5 mg/dL (0.15-1.2); Total Protein 6.5 g/dL (6.6-8.7)
[2020-02-28 14:55] LABS: Anion Gap 15.1 (5-19); Aspartate Amino Transferase 24 U/L (0-32); Potassium 4.1 mmol/L (3.5-5.1)
[2020-02-28 15:23] VITALS: BP 178/75; PULSE 76; RESP 17; O2SAT 96
[2020-02-28] MEDS: iohexol 300 mg/mL 100 mL Btl IV (15:37)
[2020-02-28 16:23] VITALS: BP 114/95; PULSE 63; RESP 15; O2SAT 96
[2020-02-28 17:30] LABS: Urine Appearance Clear (CLEAR); Urine Color Yellow (Yellow)
[2020-02-28 17:31] LABS: Add Urine Microscopic? YES; Bacteria Urine TRACE /hpf; Bilirubin Urine Neg (Negative); Blood Urine Neg (Negative); Glucose Urine UA Norm (Normal); Ketones Urine Negative (Negative); Leukocyte Esterase Urine Negative (Negative); Nitrate Urine Negative (Negative); Protein Urine 1+ (Negative); Squamous Epithelial Cell Urine 0-4 /hpf (0-5); Urobilinogen Urine Norm (Negative); pH Urine 7 (5-7)
[2020-02-28 17:32] LABS: Add Urine Culture? No
[2020-02-28 19:09] VITALS: BP 132/74; PULSE 78; RESP 18; O2SAT 93
== END 2020-02-28 19:12 | disposition home or self-care (01) ==
PROVIDERS: Emergency Provider Family Medicine; PCP Internal Medicine
DX: R10.9 Unspecified abdominal pain (principal); K63.9 Disease of intestine, unspecified; I11.0 Hypertensive heart disease with heart failure; I50.32 Chronic diastolic (congestive) heart failure; E78.2 Mixed hyperlipidemia
CPT/HCPCS: 12345; 74177; 80053; 81001; 85025; 93005; 96361; 96374; 96375; 99282; 99283; J2405; J7030; Q9967

== ENCOUNTER 2020-07-06 13:36 | Observation (INO) | payer MEDICARE, SELFPAY ==
[2020-07-06] VITALS (7 sets, daily range): BP systolic 154–199; BP diastolic 67–96; PULSE 62–70; RESP 15–18; TEMP 36.6–37.1; O2SAT 94–98; BMI 30.2
--- NOTE | 2020-07-06 13:50 | XR_ITS ---
WS: [id number] Exam: XR chest 1V portable [id number] Date/Time of Exam: 07/06/2020 1:55 PM Reason For Exam: reduced breath sounds Comparison 01/20/2020. Findings: The lungs are clear and fully expanded. Costophrenic angles are sharp. No infiltrates. Bronchovascula r relief appears normal. Cardiac silhouette is unremarkable. Bony elements are intact. XR/XR chest 1V portable [id number] IMPRESSION: Unremarkable chest radiograph.
--- NOTE | 2020-07-06 13:50 | CT_ITS ---
WS: [id number] CT HEAD NONCONTRAST HISTORY: syncope. h/o TIAs. TECHNIQUE: Contiguous axial imaging performed through the brain in 2.5 mm imaging. Bone and soft tiss ue windows. Sagittal and coronal reformats reviewed. All CT scans at [facility] use at le ast one of these dose optimization techniques: automated exposure control; mA and/or kV adjustment pe r patient size (includes targeted exams where dose is matched to clinical indication); or iterative r econstruction. DLP: 769.0 mGy.cm COMPARISON: 05/03/2019 No acute intracranial hemorrhage, midline shift or mass effect. Mild atrophy and mild chronic microvascular ischemic disease. Heavy calcification along the interhemi spheric falx. Focal calcification along the RIGHT temporal bone may be a calcified meningioma. No inc rease in size. Ventricles: Normal size with no hydrocephalus. Paranasal sinuses: As visualized are clear. Mastoid air cells: Well pneumatized. Calvarium and scalp: Hyperostosis frontalis interna. CT/CT head wo con* [id number] IMPRESSION: 1. No acute intracranial hemorrhage or edema. 2. Stable head CT since 05/03/2019 with mild atrophy and mild chronic microvasc ular ischemic disease.
--- NOTE | 2020-07-06 13:53 | ECG_ITS ---
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 Measurements Intervals Lane Rate: 62 P: 74 SC: 201 QRS: -51 QRSD: 157 T: 54 QT: 446 QTc: 455 Interpretive Statements SINUS RHYTHM WITH OCCASIONAL VENTRICULAR PREMATURE COMPLEXES RIGHT BUNDLE BRANCH BLOCK [120+ ms QRS DURATION, UPRIGHT V1, 40+ ms S IN I/aVL/V4/V5/V6] LEFT ANTERIOR FASCICULAR BLOCK [QRS AXIS <= -45, QR IN I, RS IN II] Compared to ECG 02/28/2020 13:36:38 Ventricular premature complex(es) now present Left anterior fascicular block now present Sinus bradycardia no longer present Electronically Signed On 07-06-2020 19:13:58 CDT by Clarke Kirkpatrick M.D. [id number]
[2020-07-06 14:05] LABS: Basophils % 0.5 %; Eosinophils # 0.1 10^3/uL (0.0-0.8); Eosinophils % 1.4 %; Hematocrit 40.1 % (37.0-47.0); Hemoglobin 12.9 g/dL (11.5-15.3); Lymphocytes # 1.7 10^3/uL (0.8-4.8); Lymphocytes % 29.5 %; Mean Corpuscular HGB Conc 32.2 g/dL (30.0-36.0); Mean Corpuscular Hemoglobin 30.3 pg (28.0-34.0); Mean Corpuscular Volume 94.1 fL (81-99); Mean Platelet Volume 11.7 fL (7.4-10.4); Monocytes # 0.6 10^3/uL (0.2-0.9); Monocytes % 10.7 %; Neutrophils # 3.33 10^3/uL (1.8-7.7); Neutrophils % 57.4 %; Nucleated Red Blood Cells % 0 %; Platelet Count 180 10^3/cmm (130-400); Red Blood Count 4.26 10^6/uL (4.1-5.3); Red Cell Distribution Width 13.2 % (12.1-15.1); White Blood Count 5.8 10^3/uL (4.0-10.0)
--- NOTE | 2020-07-06 14:06 | W.ED.SYNCOPE ---
HPI - Syncope General: Chief Complaint: Syncope Stated Complaint: SYNCOPE Time Seen by Provider: 07/06/20 13:37 History of Present Illness: HPI narrative: The patient is an 85-year-old female with past medical history hypertension, diastolic CHF on Lasix, mitral valve regurgitation, aortic valve sclerosis and episodes of syncope. She comes to the ER after she was getting her hair done and while she was in the supervisor hairspring fabrication the attendant went to lift the dryer off her head and noticed that she was passed out. They called EMS who noted she was pale, diaphoretic, and had a heart rate in the 40s and 50s. Normotensive at that time. On arrival to the ER she is alert and oriented x4 with normal blood pressure. She says she thinks she may be just fell asleep in the hairdryer but the EMS folks said they were told she definitely passed out. She says she has not been eating and drinking well today. She denies dizziness and lightheadedness in the ED. She says she feels significantly better but still generally weak. The report is that the episode lasted 30 minutes along which is unusual. She has had previous syncopal episodes with less than 5-minute duration however this 1 was prolonged and is concerning to them. MD complaint: loss of consciousness Witnessed: Yes - by Bystander Context: at rest Injuries sustained associated with event: none Associated symptoms: Reports no associated symptoms; Deny abdominal pain, chest pain or headache(s) Review of Systems General: Reports: 10 or more systems reviewed and unremarkable except in HPI and below Const: Denies: fatigue Eyes: Denies: change in vision, blurry vision or eye redness ENMT: Denies: throat pain, swelling of lips/tongue, ear or mastoid pain or nasal congestion Card: Denies: chest pain, palpitations, irregular heart rhythm, edema, dyspnea on exertion or orthopnea Resp: Denies: dyspnea, productive cough or non-productive cough GI: Denies: abdominal pain, diarrhea or GI cramping : Denies: flank pain, difficulty voiding, urinary frequency or urinary urgency Musc: Denies: neck pain, back pain, extremity pain, joint pain, joint redness, limited range of motion or muscle weakness Skin/Breast: Denies: rash, pruritus, erythema, skin pain or skin tenderness Neuro: Denies: headache(s), numbness in extremities, weakness in extremities, sensory changes, difficulty walking, dizziness, confusion or Slurred speech present Psych: Denies: anxiety or depression Endo: Denies: polyuria All/Imm: Denies: urticaria, throat swelling or tongue swelling PFSH ED PFSH: Medical History Benign essential hypertension Chronic diastolic heart failure Glaucoma Mixed hyperlipidemia Nonrheumatic mitral valve regurgitation Rectocele 02/07/2019: Patient reports a bulge at the vaginal opening that has been present for at least 6 weeks. On exam, she was noted to have a first-degree vault prolapse, first-degree cystocele, and second to third-degree rectocele. Patient decided to follow for now. Syncope and collapse Surgical History History of hysterectomy (~1976) KAROLINE, (unsure if has ovaries). Performed at [facility] in [place], [place] Family History Grandmother Diabetes Maternal Mother Heart disease Father Heart disease Daughter Heart disease Stroke Sister Heart disease Stroke Colon cancer Brother Hypertension Social History Smoking and tobacco status: never smoked Alcohol intake: never Additional social history: Well balanced diet Physical Exam Const: COMMON NORMALS: no acute distress, average body habitus, patient oriented x3, no limitations, healthy appearing, alert and well nourished GENERAL APPEARANCE: cooperative, comfortable, well kempt and well developed ORIENTATION/CONSCIOUSNESS: Yes awake, Yes oriented to person, Yes oriented to place and Yes oriented to time HENMT: COMMON NORMALS: normocephalic, external ears normal and Normal external nose present HEAD & SCALP: normal to inspection and normocephalic NOSE: Normal external nose present EXTERNAL EAR: Yes external ears normal MOUTH: Normal oral and palatal mucosa present THROAT: posterior oropharynx normal Eye: COMMON NORMALS: Equal, round and reactive pupils present and EOMs intact bilaterally GENERAL EYE: appearance normal, both eyes and all related structures PUPIL: Yes Equal, round and reactive pupils present Neck/C-Spine: COMMON NORMALS: full ROM, no lymphadenopathy, no meningeal signs and no JVD GENERAL: Yes normal visual inspection Lymph: LYMPHATIC: no lymphadenopathy noted Chest: COMMONS NORMALS: normal inspection of the chest and normal palpation of entire chest wall Resp: COMMON NORMALS: normal respiratory effort, No retractions, No use of accessory muscles, clear to auscultation bilaterally and percussion normal EFFORT & INSPECTION: Yes able to speak in complete sentences AUSCULTATION: clear to auscultation bilaterally PERCUSSION: percussion normal Cardio: COMMON NORMALS: no JVD, regular rate, regular rhythm, S1 normal heart sound present, S2 normal heart sound present and Peripheral pulses 2+ throughout RATE: regular rate RHYTHM: regular rhythm HEART SOUNDS: S1 normal heart sound present and S2 normal heart sound present PERIPHERAL PULSES: Peripheral pulses 2+ throughout GI: COMMON NORMALS: Normal to inspection, nondistended, normoactive bowel sounds present, Soft to palpation, non-tender and no masses INSPECTION: Yes normal to inspection PALPATION: Yes Soft to palpation : COMMON NORMALS: Yes no CVA tenderness BLADDER/KIDNEY EXAM: Yes no CVA tenderness Back/Pelvis: COMMON NORMALS: no CVA tenderness, thoracic and lumbar spine normal to inspection, no thoracic nor lumbar tenderness and thoraco-lumbar ROM normal Extremity: COMMON NORMALS: normal to inspection, full ROM, capillary refill normal, no joint enlargement and no pedal edema GENERAL: Yes normal exam except as noted Neuro: COMMON NORMALS: patient oriented x3, CN's II-XII intact bilaterally, moves all extremities, no focal motor deficits, no sensory deficits noted and gait normal SENSORIUM/ORIENTATION: Yes alert, Yes oriented to person, Yes oriented to place and Yes oriented to time MENINGEAL SIGNS: Yes no meningeal signs Psych: COMMON NORMALS: mental status grossly normal, Normal thought process present, cooperative, normal affect and speech normal APPEARANCE: Yes well kempt ATTITUDE: Yes calm SPEECH: Yes normal speech THOUGHT PROCESS: Normal thought process present Skin: COMMON NORMALS: no rashes or lesions noted GENERAL SKIN EXAM: no rashes or lesions noted Course Vital Signs: Vital signs: Vital Signs Temperature 98.7 F 07/06/20 13:39 Pulse Rate 67 07/06/20 18:44 Respiratory Rate 18 07/06/20 18:44 Blood Pressure 176/96 07/06/20 18:44 Pulse Oximetry 94 07/06/20 18:44 MDM - Syncope MDM Narrative: Medical decision making narrative: The patient comes in after a syncopal episode that is concerning because of the length of it approximately 30 minutes per family. Labs and imaging are mostly normal and the patient has improved here however I discussed with Dr. Hussein who recommended observation with monitoring. Dr. Workman accepts Lab Data: Labs: Lab Results 07/06/20 07/06/20 07/06/20 Range/Units 13:42 13:42 13:42 WBC 5.8 (4.0-10.0) 10^3/ uL RBC 4.26 (4.1-5.3) 10^6/u L Hgb 12.9 (11.5-15.3) g/dL Hct 40.1 (37.0-47.0) % MCV 94.1 (81-99) fL MCH 30.3 (28.0-34.0) pg MCHC 32.2 (30.0-36.0) g/dL RDW 13.2 (12.1-15.1) % Plt Count 180 (130-400) 10^3/c mm MPV 11.7 H (7.4-10.4) fL Neut % (Auto) 57.4 % Lymph % (Auto) 29.5 % Burnett % (Auto) 10.7 % Eos % (Auto) 1.4 % Baso % (Auto) 0.5 % Neut # (Auto) 3.33 (1.8-7.7) 10^3/u L Lymph # (Auto) 1.7 (0.8-4.8) 10^3/u L Burnett # (Auto) 0.6 (0.2-0.9) 10^3/u L Eos # (Auto) 0.1 (0.0-0.8) 10^3/u L Baso # (Auto) 0.0 (0.0-0.1) 10^3/u L Nucleated RBC % (a uto) 0 % Nucleated RBCs # 0.0 /100WBC Sodium Cancelled Potassium Cancelled Chloride Cancelled Carbon Dioxide Cancelled Anion Gap Cancelled BUN Cancelled Creatinine Cancelled GFR Calculation Cancelled Glucose Cancelled Calculated Osmolal ity Cancelled Lactate (0.5-2.2) mmol/L Calcium Cancelled Total Bilirubin Cancelled AST Cancelled ALT Cancelled Alkaline Phosphata se Cancelled Troponin T Baselin e Cancelled Troponin T 120 Min chicken ranch (0-10) ng/L Delta Troponin T (0-10) ABS# NT-Pro-B Natriuret Pep Cancelled Total Protein Cancelled Albumin Cancelled Globulin Cancelled Urine Color (Yellow) Urine Appearance (CLEAR) Urine pH (5-7) Ur Specific Gravit y (1.005-1.030) Urine Protein (Negative) Urine Glucose (UA) (Normal) Urine Ketones (Negative) Urine Blood (Negative) Urine Nitrate (Negative) Urine Bilirubin (Negative) Prot Sulfosalicyli c Acd (Negative) Urine Urobilinogen (Negative) mg/dL Ur Leukocyte Elle ase (Negative) 07/06/20 07/06/20 07/06/20 Range/Units 14:24 14:24 14:24 WBC (4.0-10.0) 10^3/ uL RBC (4.1-5.3) 10^6/u L Hgb (11.5-15.3) g/dL Hct (37.0-47.0) % MCV (81-99) fL MCH (28.0-34.0) pg MCHC (30.0-36.0) g/dL RDW (12.1-15.1) % Plt Count (130-400) 10^3/c mm MPV (7.4-10.4) fL Neut % (Auto) % Lymph % (Auto) % Burnett % (Auto) % Eos % (Auto) % Baso % (Auto) % Neut # (Auto) (1.8-7.7) 10^3/u L Lymph # (Auto) (0.8-4.8) 10^3/u L Burnett # (Auto) (0.2-0.9) 10^3/u L Eos # (Auto) (0.0-0.8) 10^3/u L Baso # (Auto) (0.0-0.1) 10^3/u L Nucleated RBC % (a uto) % Nucleated RBCs # /100WBC Sodium 135 L Potassium 4.0 Chloride 102 Carbon Dioxide 26 Anion Gap 11.0 BUN 25 H Creatinine 0.8 GFR Calculation Not Reportable Glucose 144 H Calculated Osmolal ity 287 Lactate 1.0 (0.5-2.2) mmol/L Calcium 9.0 Total Bilirubin 0.8 AST 19 ALT 17 Alkaline Phosphata se 83 Troponin T Baselin e 26 H Troponin T 120 Min chicken ranch (0-10) ng/L Delta Troponin T (0-10) ABS# NT-Pro-B Natriuret Pep 1363 H Total Protein 6.2 L Albumin 3.6 Globulin 2.6 Urine Color (Yellow) Urine Appearance (CLEAR) Urine pH (5-7) Ur Specific Gravit y (1.005-1.030) Urine Protein (Negative) Urine Glucose (UA) (Normal) Urine Ketones (Negative) Urine Blood (Negative) Urine Nitrate (Negative) Urine Bilirubin (Negative) Prot Sulfosalicyli c Acd (Negative) Urine Urobilinogen (Negative) mg/dL Ur Leukocyte Elle ase (Negative) 07/06/20 07/06/20 Range/Units 15:45 16:37 WBC (4.0-10.0) 10^3/ uL RBC (4.1-5.3) 10^6/u L Hgb (11.5-15.3) g/dL Hct (37.0-47.0) % MCV (81-99) fL MCH (28.0-34.0) pg MCHC (30.0-36.0) g/dL RDW (12.1-15.1) % Plt Count (130-400) 10^3/c mm MPV (7.4-10.4) fL Neut % (Auto) % Lymph % (Auto) % Burnett % (Auto) % Eos % (Auto) % Baso % (Auto) % Neut # (Auto) (1.8-7.7) 10^3/u L Lymph # (Auto) (0.8-4.8) 10^3/u L Burnett # (Auto) (0.2-0.9) 10^3/u L Eos # (Auto) (0.0-0.8) 10^3/u L Baso # (Auto) (0.0-0.1) 10^3/u L Nucleated RBC % (a uto) % Nucleated RBCs # /100WBC Sodium Potassium Chloride Carbon Dioxide Anion Gap BUN Creatinine GFR Calculation Glucose Calculated Osmolal ity Lactate (0.5-2.2) mmol/L Calcium Total Bilirubin AST ALT Alkaline Phosphata se Troponin T Baselin e Troponin T 120 Min chicken ranch 17.99 H (0-10) ng/L Delta Troponin T -8.01 L (0-10) ABS# NT-Pro-B Natriuret Pep Total Protein Albumin Globulin Urine Color Straw (Yellow) Urine Appearance Clear (CLEAR) Urine pH 8 H (5-7) Ur Specific Gravit y 1.010 (1.005-1.030) Urine Protein Neg (Negative) Urine Glucose (UA) Norm (Normal) Urine Ketones Negative (Negative) Urine Blood Neg (Negative) Urine Nitrate Negative (Negative) Urine Bilirubin Neg (Negative) Prot Sulfosalicyli c Acd Negative (Negative) Urine Urobilinogen Norm (Negative) mg/dL Ur Leukocyte Elle ase Negative (Negative) Discharge Plan Discharge Patient Disposition: Admitted As Inpatient Admit Provider: Belinda Workman Clinical Impression: Syncope and collapse, Asymptomatic PVCs Condition: Stable Coding Level of Care Code ED Breast Buffer for Chg Fwd Exam Comprehensive
[2020-07-06] MEDS: sodium chloride 0.9% 1,000 ML 999 ML IV (14:12)
[2020-07-06 14:51] LABS: Troponin(5th) Baseline 26 ng/L (0-10)
[2020-07-06 14:59] LABS: Alanine Aminotransferase 17 U/L (0-33); Albumin Level 3.6 g/dL (3.5-5.2); Alkaline Phosphatase 83 IU/L (35-105); Aspartate Amino Transferase 19 U/L (0-32); Blood Urea Nitrogen 25 mg/dL (8-23); Carbon Dioxide 26 mmol/L (22-29); Chloride 102 mmol/L (98-107); Globulin 2.6 g/dL (1.3-4.6); Glucose 144 mg/dL (65-115); NT Pro B Type Natriuretic Pept 1363 pg/mL (0-450); Osmolality Calculated 287 mOsm/kg (285-295); Sodium 135 mmol/L (136-145); Total Bilirubin 0.8 mg/dL (0.15-1.2); Total Protein 6.2 g/dL (6.6-8.7)
--- NOTE | 2020-07-06 15:53 | ECG_ITS ---
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 Measurements Intervals [place] Rate: 62 P: 84 NJ: 204 QRS: -56 QRSD: 130 T: 43 QT: 443 QTc: 452 Interpretive Statements SINUS RHYTHM RIGHT BUNDLE BRANCH BLOCK [120+ ms QRS DURATION, UPRIGHT V1, 40+ ms S IN I/aVL/V4/V5/V6] LEFT ANTERIOR FASCICULAR BLOCK [QRS AXIS <= -45, QR IN I, RS IN II] POSSIBLE SEPTAL MYOCARDIAL INFARCTION , PROBABLY OLD [30 ms Q WAVE IN V1/V2] Compared to ECG 07/06/2020 13:49:50 Myocardial infarct finding now present Ventricular premature complex(es) no longer present Electronically Signed On 07-06-2020 19:16:25 CDT by Clarke Kirkpatrick M.D. [id number]
[2020-07-06 16:16] LABS: Add Urine Microscopic? NO; Charge for UA Resulting for Rev
[2020-07-06 16:21] LABS: Bilirubin Urine Neg (Negative); Blood Urine Neg (Negative); Glucose Urine UA Norm (Normal); Ketones Urine Negative (Negative); Leukocyte Esterase Urine Negative (Negative); Nitrate Urine Negative (Negative); Protein Urine Neg (Negative); Sulfosalicylic Acid Urine Negative (Negative); Urine Appearance Clear (CLEAR); Urine Color Straw (Yellow); Urobilinogen Urine Norm (Negative); pH Urine 8 (5-7)
[2020-07-06 17:11] LABS: Troponin 5 2HR 17.99 ng/L (0-10); Troponin 5 2HR Delta -8.01 ABS# (0-10)
--- NOTE | 2020-07-06 18:31 | PC.NURSE ---
Nurse unable to take report at this time, due to being busy.
--- NOTE | 2020-07-06 19:33 | PM.HP ---
Providers/Chief Complaint Admitting Physician: Belinda Workman MD Primary Care Provider: Mely Combs MD Chief Complaint: SYNCOPE History of Present Illness Marsha Pantoja is a 85 year old female who has history of grade 1 diastolic dysfunction, preserved ejection fraction, syncopal event in the past, 01/26 was admitted for management of CVA carotid Doppler were unremarkable no residual neurological deficits, aortic valve sclerosis, previous Holter monitor reading revealed baseline sinus rhythm heart rate around 66 bpm, isolated PVCs, PACs follows up with Dr. Toribio presenting today after a syncopal event. This time her syncopal event was noticed at her hair salon when she was getting blowdry hair treatment, she had the treatment done for roughly 30 minutes and when hairdresser checked on her she was not responding to verbal commands, EMS was called, she was arousable to noxious stimuli. Patient is stating that she did not stress any chest pain, fever, diaphoresis or shortness of breath, she is attributing her symptoms to taking a nap, she is endorsing waking up when she was on the stretcher in her ambulance. She is denying chest pain, fever, shortness of breath, orthopnea, PND, dysuria. She is denying seizure-like activities, urinary or rectal incontinence. By the time she arrived in the ER her heart rate was in 60s, EKG showed sinus bradycardia with anterior fascicle block, no QTC prolonged patient potassium is normal she was not hypothermic, I would check TSH and magnesium level, patient was hemodynamically stable, her Coreg was stopped CT head showing chronic changes No active chest pain troponin with negative delta Review of Systems Const: Denies: fever(s) Eyes: Denies: change in vision ENMT: Denies: throat pain Card: Reports: syncope; Denies: chest pain Resp: Denies: dyspnea GI: Denies: abdominal pain : Denies: flank pain Musc: Denies: neck pain Skin/Breast: Denies: rash Neuro: Denies: headache(s) Psych: Denies: anxiety Endo: Denies: polyuria David/Lymph: Denies: easy bruising All/Imm: Denies: urticaria Medications/Allergies Home Medications Medication Instructions Recorded Confirmed Last Taken Type atorvastatin 20 mg tablet 20 mg PO DAILY@08 tab 03/23/19 07/06/20 07/06/20 History brimonidine 0.2 % eye drops 1 drop OPHTHALMIC (EYE) BID@,03/23/19 07/06/20 07/06/20 History isosorbide mononitrate 120 mg 120 mg PO DAILY@03/23/19 07/06/20 07/06/20 History tablet,extended release 24 hr timolol maleate 0.5 % eye drops 1 drop OPHTHALMIC (EYE) BID@,03/23/19 07/06/20 07/06/20 History ml vitamins A,C,L-quch-hbmaxa 14,320 1 cap PO DAILY@08 03/23/19 07/06/20 07/06/20 History unit-226 mg-200 unit capsule losartan 100 mg tablet 100 mg PO DAILY@08 tab 01/18/20 07/06/20 07/06/20 History clonidine HCl 0.1 mg PO BID PRN #60 tab 01/20/20 07/06/20 Unknown Rx latanoprost 1 drp OPHTHALMIC (EYE) DAILY@01/20/20 07/06/20 07/05/20 History furosemide 20 mg PO DAILY@08 02/28/20 07/06/20 07/06/20 History oxybutynin chloride 10 mg PO DAILY@02/28/20 07/06/20 07/06/20 History baclofen 10 mg tablet 10 mg PO TID PRN tab 03/29/20 07/06/20 Unknown History hydralazine 25 mg tablet 25 mg PO TID tab 03/29/20 07/06/20 07/06/20 History carvedilol 3.125 mg PO BID@07/06/20 07/06/20 07/06/20 History pantoprazole 40 mg PO DAILY@08 07/06/20 07/06/20 07/06/20 History Allergies Allergy/AdvReac Type Severity Reaction Status Date / Time amlodipine Allergy Head feels Verified 03/29/20 08:31 funny, mental status change aspirin Allergy rash Verified 03/29/20 08:31 Penicillins Allergy rash Verified 03/29/20 08:31 PFSH Acute PFSH: Medical History Benign essential hypertension Chronic diastolic heart failure Glaucoma Mixed hyperlipidemia Nonrheumatic mitral valve regurgitation Rectocele 02/07/2019: Patient reports a bulge at the vaginal opening that has been present for at least 6 weeks. On exam, she was noted to have a first-degree vault prolapse, first-degree cystocele, and second to third-degree rectocele. Patient decided to follow for now. Syncope and collapse Surgical History History of hysterectomy (~1976) KAROLINE, (unsure if has ovaries). Performed at [facility] in [place], [place] Hx of bilateral cataract extraction Family History Grandmother Diabetes Maternal Mother Heart disease Father Heart disease Daughter Heart disease Stroke Sister Heart disease Stroke Colon cancer Brother Hypertension Social History Smoking and tobacco status: never smoked Alcohol intake: never Additional social history: Well balanced diet Vitals/I&O/Wt Last Vital Signs Temp 98.7 F 07/06/20 13:39 Pulse 67 07/06/20 18:44 Resp 18 07/06/20 18:44 BP 176/96 07/06/20 18:44 Pulse Ox 94 07/06/20 18:44 07/06/20 07/06/20 07/06/20 06:59 14:59 22:59 Intake Total 1000 / 1000 Balance 1000 / 1000 Weight last 48 hrs Weight 68.039 kg Physical Exam Narrative: EXAM NARRATIVE: Pleasant elderly female She was lying supine in her bed without any active discomfort chest pain shortness of breath or fever Saturating well on room air S1, S2 no murmur appreciated no carotid bruit No active signs of fluid overload Awake alert oriented x3 GCS 15 No confusion no rash Abdomen soft nontender bowel sound present Bilateral breath sounds without adventitious rhonchi or crackles Lower extremity no edema gangrene also Pleasant mood Appropriate affect No joint swelling Data : 07/06/20 13:42 07/06/20 14:24 A&P Assessment and plan (1) Syncope and collapse: Status: Acute (2) Chronic diastolic heart failure: Status: Acute (3) Benign essential hypertension: Status: Acute (4) Bradycardia: Status: Acute Additional A&P Information Syncope This will be her second syncopal event, heart rate in low 40s were detected by EMS however during her initial evaluation she was found to be in sinus rhythm heart rate 60s, 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, she is also taking Coreg which I would hold for now, check TSH and magnesium level, potassium is normal she is not hypothermic no active signs of coronary ischemia she is asymptomatic hemodynamically stable no active confusion, shortness of breath or chest pain Considering recurrent event would recommend pacemaker evaluation, she has already done Holter monitoring in the past Please consult cardiology in the morning, no urgent indication Will request D-dimer as well Chronic diastolic congestive heart failure without acute exacerbation, clinically she is euvolemic however she has high BNP she takes Lasix on daily basis which I would continue for now she has preserved ejection fraction diastolic dysfunction No active coronary ischemia symptoms or sign Hypertension: Blood pressure 199/70, I would continue her hydralazine Imdur losartan Full code Cardiac diet DVT prophylaxis Lovenox Attestations Medical Necessity Statement*: Anticipating stay in the hospital to be of less than 2 midnights currently need evaluation for syncope and bradycardia Time Spent in Patient Care: (>than 50% of time spent in counselling and/or direct pt care on unit). 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
--- NOTE | 2020-07-06 19:53 | ECG_ITS ---
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 Measurements Intervals [place] Rate: 71 P: 36 VT: 192 QRS: -40 QRSD: 138 T: 47 QT: 423 QTc: 461 Interpretive Statements SINUS RHYTHM MARKED LEFT AXIS DEVIATION [QRS AXIS < -30] RIGHT BUNDLE BRANCH BLOCK [120+ ms QRS DURATION, UPRIGHT V1, 40+ ms S IN I/aVL/V4/V5/V6] MODERATE VOLTAGE CRITERIA FOR LVH, CONSIDER NORMAL VARIANT [MEETS CRITERIA IN ONE OF: R(aVL), S(V1), R(V5), R(V5/V6)+S(V1)] POSSIBLE SEPTAL MYOCARDIAL INFARCTION [30 ms Q WAVE IN V1/V2], PROBABLY OLD Compared to ECG 07/06/2020 16:38:52 Left-axis deviation now present Left anterior fascicular block no longer present Myocardial infarct finding still present Electronically Signed On 07-15-2020 12:29:04 CDT by Beatrice Mayorga M.D. [id number]
[2020-07-06 20:03] LABS: Magnesium 1.8 mg/dL (1.7-2.3); Thyroid Stimulating Hormone 3.81 uIU/mL (0.27-4.20)
[2020-07-06] MEDS: hyDRALAzine 25 mg Tablet PO (20:05)
[2020-07-06] MEDS: timolol 0.5% Op Soln 5 mL Btl 1 DROP EYE-BOTH (22:06)
[2020-07-06] MEDS: latanoprost 0.005% Op Soln 2.5 mL Btl 1 DROP EYE-BOTH (22:07)
[2020-07-06 22:11] LABS: Troponin 5 6HR 19.64 ng/L (0-10)
[2020-07-06 22:21] LABS: Troponin 5 6HR Delta -6.36 ng/L (0-12)
[2020-07-07] VITALS (10 sets, daily range): BP systolic 151–192; BP diastolic 75–99; PULSE 64–75; RESP 15–20; TEMP 36.3–36.9; O2SAT 92–96
[2020-07-07 00:27] LABS: D Dimer <= 0.27 ug/mIFEU (0-0.59)
[2020-07-07] MEDS: acetaminophen 325 mg Tablet PO (03:07)
[2020-07-07] MEDS: losartan 50 mg Tablet 100 MG PO (06:13)
[2020-07-07] MEDS: hyDRALAzine 25 mg Tablet PO (06:13)
--- NOTE | 2020-07-07 06:16 | PC.NURSE ---
Patients Bp found too be 190/99 Physician contacted and made aware. Physician ordered early administration of losartan 100mg and hyDRALAzine 25mg.
[2020-07-07] MEDS: FUROsemide 20 mg Tablet PO (08:07)
[2020-07-07] MEDS: pantoprazole DR 40 mg Tablet PO (08:08)
[2020-07-07] MEDS: atorvastatin 40 mg Tablet 20 MG PO (08:08)
[2020-07-07] MEDS: oxybutynin chloride XL 5 MG TABLET 10 MG PO (08:08)
[2020-07-07] MEDS: isosorbide mononitrate ER 60 mg Tablet 120 MG PO (08:08)
[2020-07-07] MEDS: timolol 0.5% Op Soln 5 mL Btl 1 DROP EYE-BOTH ×2 (08:10→22:03)
--- NOTE | 2020-07-07 14:12 | P.PN_ITS ---
Subjective Subjective: Interval history: Overnight labs and H&P reviewed. This morning heart rate is ranging in the 70s, sinus rhythm. Patient has no recurrence of symptoms. Blood pressure continues to be high, systolic between 1 90-200. Coreg has been discontinued, hydralazine dose increased. 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 Holding carvedilol, continue to monitor on telemetry Uncontrolled hypertension systolic blood pressure ranging between 1 90-200 today, increase hydralazine to 50 mg p.o. TID , continue Imdur, losartan Chronic diastolic congestive heart failure without acute exacerbation, clinically she is euvolemic however she has high BNP she takes Lasix on daily basis which I would continue for now she has preserved ejection fraction diastolic dysfunction No active coronary ischemia symptoms or sign Full code Cardiac diet DVT prophylaxis Lovenox Attestations Medical Necessity Statement*: Uncontrolled hypertension today, titrating blood pressure medication, continue to monitor for any other bradycardic events on telemetry Coding Level of Care Code Acute Roll Cutting Operator for Ally Fwjessica Diagnoses Syncope and collapse R55 Chronic diastolic heart failure I50.32 Benign essential hypertension I10 Bradycardia R00.1
[2020-07-07] MEDS: hyDRALAzine 50 mg Tablet PO ×2 (15:04→20:02)
--- NOTE | 2020-07-07 19:17 | PC.NURSE ---
Report to Kelly MARROQUIN at this time.
[2020-07-07] MEDS: latanoprost 0.005% Op Soln 2.5 mL Btl 1 DROP EYE-BOTH (22:03)
[2020-07-08 03:32] VITALS: BP 159/75; PULSE 65; RESP 16; TEMP 36.7; O2SAT 94
[2020-07-08 05:58] VITALS: PULSE 69
[2020-07-08 07:19] VITALS: BP 171/75; PULSE 62; RESP 15; TEMP 36.6; O2SAT 95
[2020-07-08 08:13] VITALS: BP 171/75
[2020-07-08] MEDS: losartan 50 mg Tablet 100 MG PO (08:13)
[2020-07-08] MEDS: oxybutynin chloride XL 5 MG TABLET 10 MG PO (08:14)
[2020-07-08] MEDS: pantoprazole DR 40 mg Tablet PO (08:14)
[2020-07-08] MEDS: isosorbide mononitrate ER 60 mg Tablet 120 MG PO (08:14)
[2020-07-08] MEDS: atorvastatin 40 mg Tablet 20 MG PO (08:14)
[2020-07-08] MEDS: hyDRALAzine 50 mg Tablet PO ×2 (08:15→14:02)
[2020-07-08] MEDS: FUROsemide 20 mg Tablet PO (08:15)
[2020-07-08] MEDS: timolol 0.5% Op Soln 5 mL Btl 1 DROP EYE-BOTH (09:00)
[2020-07-08 11:23] VITALS: BP 118/63; PULSE 66; RESP 15; TEMP 36.9; O2SAT 95
--- NOTE | 2020-07-08 12:43 | PC.CHAP ---
Pastoral Care Encounter/Spiritual Assessment Type of Contact [] Declined community placement worker visit [] Patient/Family/Request visit [] Outpatient visit [] Follow-up visit [] Physician referral [] Code/Alert [XX] Routine visit [] Staff referral [] Actively dying [] Patient sleeping [] Family support [] [] Out of room [] Palliative care [] [] Receiving care in room [] Pre-surgical visit [] Trauma [] Long length of stay [] ICU visit [] Other: Relational/Emotional Strength [XX] Patient feels connected with others/family/visitors/staff [] Distress [] Loneliness/isolation [] Abandonment Spirituality of Patient [] Person of Jackie [] Attends Denominational of their Jackie [] Believes in Prayer [] Reads Bible or Gnosticist materials [] There are Spiritual issues to be addressed Vp Emerging Media Interventions [] Prayer [XX] Active listening [XX] Non-anxious presence [] Spiritual/emotional support [] Crisis/trauma care [] Spiritual counseling [] Bereavement support [] Provided bereavement packet [] Provided Bible/devotional materials [] Provided toy/stuffed animal, coloring book to patient or family member [] Provided Communion [] Anointing/[place] [] Salvation [] Completed spiritual assessment [] Other: Impact on Illness or Injury [] Angry [] Fearful [] Anxious [] Often cries [] Exhaustion [] Unable to work [] Unable to attend spiritism [] Unable to walk/stand [] Unable to read [] Unable to drive [] Unable to eat/drink [] Unable to sleep [] Unable to be with family [] Patient intubated [] Other: Summary: Communication was difficult with pt but she was pleasant and welcoming to the visit. Pt has family support but either did not hear community placement worker or ignorded community placement worker's question about a pentecostal family. Pt's daughter was present and said, We're fine in response to my offering of prayer, advocacy, or other support. Time spent with patient: 7 mins
--- NOTE | 2020-07-08 12:49 | P.DS_ITS ---
Discharge Providers Date of Admission: 07/06/20 19:40 Date of Discharge: July 08, 2020 Attending Provider at Admission: Belinda Workman MD Attending Provider at Discharge: Belinda Workman MD Primary Care Provider: Mely Combs MD Diagnoses at Discharge Discharge Diagnosis (1) Syncope and collapse: Status: Acute (2) Chronic diastolic heart failure: Status: Acute (3) Benign essential hypertension: Status: Acute (4) Bradycardia: Status: Acute Reason for Visit Reason for Visit: SYNCOPE Hospital Course Hospital Course Marsha Pantoja is a 85 year old female who has history of grade 1 diastolic dysfunction, preserved ejection fraction, syncopal event in the past, 01/26 was admitted for management of CVA carotid Doppler were unremarkable no residual neurological deficits, aortic valve sclerosis, previous Holter monitor reading revealed baseline sinus rhythm heart rate around 66 bpm, isolated PVCs, PACs follows up with Dr. Toribio presenting today after a syncopal event. This time her syncopal event was noticed at her hair salon when she was getting blowdry hair treatment, she had the treatment done for roughly 30 minutes and when hairdresser checked on her she was not responding to verbal commands, EMS was called, she was arousable to noxious stimuli. Patient is stating that she did not stress any chest pain, fever, diaphoresis or shortness of breath, she is attributing her symptoms to taking a nap, she is endorsing waking up when she was on the stretcher in her ambulance. She is denying chest pain, fever, shortness of breath, orthopnea, PND, dysuria. She is denying seizure-like activities, urinary or rectal incontinence. By the time she arrived in the ER her heart rate was in 60s, EKG showed sinus bradycardia with anterior fascicle block, no QTC prolonged patient potassium is normal she was not hypothermic.HR continued to be 60-70 bpm after stopping carvedilol. Hospital course was notable for uncontrolled hypertension, for which hydralazine was increased to 50 mg p.o. 3 times daily at discharge with good BP control. 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: no focal neuro deficits Discharge Data Data Completed and Pending: Completed Studies During Hospitalization Category Date Time Status CT head wo con* 7 0450 Urgent Cat Scan 07/06/20 13:50 Completed XR chest 1V jazmyn ble [id number] Urgent Exams 07/06/20 13:50 Completed Vitals: Last Vital Signs Temp 98.4 F 07/08/20 11:23 Pulse 66 07/08/20 11:23 Resp 15 07/08/20 11:23 BP 118/63 07/08/20 11:23 Pulse Ox 95 07/08/20 11:23 Discharge Plan Discharge Patient Disposition: Home Condition: Stable Prescriptions: Continued isosorbide mononitrate 120 mg tablet extended release 24 hr 120 mg PO DAILY@08 RF: 0 brimonidine 0.2 % drops 1 drop ophthalmic (eye) BID@, RF: 0 atorvastatin 20 mg tablet 20 mg PO DAILY@08 RF: 0 PreserVision AREDS 14,320-226-200 pmig-hx-vwjf capsule 1 cap PO DAILY@08 RF: 0 timolol maleate 0.5 % drops 1 drop ophthalmic (eye) BID@ RF: 0 baclofen 10 mg tablet 10 mg PO TID PRN (Reason: muscle spasm) RF: 0 losartan 100 mg tablet 100 mg PO DAILY@08 RF: 0 latanoprost 0.005 % drops 1 drp ophthalmic (eye) DAILY@22 RF: 0 clonidine HCl 0.1 mg tablet 0.1 mg PO BID PRN (Reason: blood pressure greater than 180 systolic) Qty: 60 RF: 0 furosemide 20 mg tablet 20 mg PO DAILY@08 RF: 0 oxybutynin chloride 10 mg tablet extended release 24hr 10 mg PO DAILY@08 RF: 0 pantoprazole 40 mg Tablet,Delayed Release (Dr/Ec) 40 mg PO DAILY@08 RF: 0 Changed hydralazine 25 mg tablet 50 mg PO TID Qty: 0 RF: 0 Discontinued carvedilol 6.25 mg tablet 3.125 mg PO BID@, RF: 0 Discharge Orders: Discharge Order (Routine); Ordered 07/08/20 Ordered By: Belinda Workman Referrals: Kesha Toribio MD [Physician] - 7-10 days (Please call Thursday morning to make a follow-up appointment with Dr. Toribio. ) Discharge Diet: Cardiac Discharge Activity: Resume usual activity Patient Instructions: Hydralazine (By mouth), Bradycardia (GEN), Hypertension (GEN), Opioid Safety Discharge Attestations Time Spent in Discharge Care*: less than 30 min Quality Metrics Clinical Quality Measures During this hospital stay, did patient experience: None Coding Level of Care Code Acute Chg FW DC note Diagnoses Syncope and collapse R55 Chronic diastolic heart failure I50.32 Benign essential hypertension I10 Bradycardia R00.1
--- NOTE | 2020-07-08 14:10 | PC.NURSE ---
Discharge instructions reviewed with patient and daughter at this time. Patient's blood pressure is 163/84 and she requests to take her Hydrazine before leaving. Hydrazine given. Patient and daughter verbalized understanding of discharge instructions including stopping her Coreg and follow up with Dr. Toribio in 7 to 10 days. IV removed intact. Patient is A&Ox3. Respirations even and non-labored on room air. Patient wheel chaired to private car.
[2020-07-08 14:12] VITALS: BP 118/63; PULSE 66; RESP 15; TEMP 36.9; O2SAT 95
== END 2020-07-08 14:10 | disposition home or self-care (01) ==
LOC: ER 13:58 → MEDSURG 18:47
PROVIDERS: Internal Medicine; Admitting Provider Student in an Organized Health Care Education/Training Program; Emergency Provider Family Medicine; PCP Internal Medicine; Visit Provider Student in an Organized Health Care Education/Training Program
DX: R55 Syncope and collapse (principal); I11.0 Hypertensive heart disease with heart failure; I50.32 Chronic diastolic (congestive) heart failure; R00.1 Bradycardia, unspecified; E78.2 Mixed hyperlipidemia; Z82.49 Family history of ischemic heart disease and other diseases of the circulatory system
CPT/HCPCS: 36415; 70450; 71045; 80053; 81003; 83605; 83735; 83880; 84443; 84484; 85025; 85378; 93005; 96360; 99291; G0378; J7030

== ENCOUNTER 2020-08-01 08:52 | Outpatient (CLI) | payer MEDICARE, SELFPAY ==
--- NOTE | 2020-08-01 09:03 | CT_ITS ---
WS: [id number] CT ABDOMEN PELVIS TECHNIQUE: Contrast-enhanced CT of the abdomen and pelvis with coronal and sagittal reformatted image s. CLINICAL INFORMATION: CECAL MASS COMPARISON: CT February 28, 2020 DLP: 1147.[address] scans at [facility] use at least one of these dose optimization techniques: automat ed exposure control; mA and/or kV adjustment per patient size (includes targeted exams where dose is matched to clinical indication); or iterative reconstruction. FINDINGS: Again seen is the low-attenuation lobulated soft tissue mass arising from the posterior cecum unchang ed appearance since the prior examination. This measures 15.0 x 15.7 x 21 mm unchanged from previous. This is suspicious for neoplasm and recommend surgical evaluation. Separate appendix is not identifi ed as previously described. No evidence of small or large bowel obstruction. Fat-containing umbilical hernia. Prior hysterectomy. Normal liver. Normal portal vein and splenic vein. Normal gallbladder. Small esophageal hiatal herni a. Normal spleen. Lung bases are well aerated. Slight atelectasis in the lung bases. Small noncalcifi ed nodule measuring 3 mm left lower lobe. Fatty atrophy of the pancreas. Low-attenuation lesion involving the pancreas measuring 5 mm unchanged from previous. No ductal dilatation. Pancreatic head is normal. Normal caliber abdominal aorta. Aort ic calcification. Adrenal glands are normal. Bilateral renal cortical atrophy. No hydronephrosis. Kris ateral renal cysts. No abdominal lymphadenopathy. No pelvic lymphadenopathy. No inguinal lymphadenopathy. Tiny fat-contai shamika umbilical hernia. Normal sigmoid colon. CT/CT abdomen pelvis w con* [id number] IMPRESSION: 1. Exophytic low-attenuation lobulated mass arising from inferior posterior as pect of the cecum unchanged from prior examinations suspicious for neoplasm. Re commend surgical evaluation if this has not been performed 2. No other significant changes from previous. 3. No small or large bowel obstruction. 4. Small esophageal hiatal hernia. 5. Bilateral renal cortical atrophy with stable renal cysts. 6. No abdominal or pelvic lymphadenopathy. 7. Tiny low-attenuation 5 mm pancreatic lesion involving the pancreas is uncha nged. No ductal dilatation. 8. Noncalcified nodule left lower lobe along the fissure measuring 3 mm is unc hanged
[2020-08-01] MEDS: iohexol 300 mg/mL 50 mL Btl PO (09:46)
[2020-08-01] MEDS: iohexol 300 mg/mL 100 mL Btl IV (11:05)
== END 2020-08-01 08:53 | disposition home or self-care (01) ==
PROVIDERS: PCP Internal Medicine; Visit Provider Internal Medicine
DX: K63.9 Disease of intestine, unspecified (principal); K44.9 Diaphragmatic hernia without obstruction or gangrene; N26.1 Atrophy of kidney (terminal); Q61.02 Congenital multiple renal cysts
CPT/HCPCS: 74177; Q9967

== ENCOUNTER → 2020-08-10 09:35 | Outpatient (BNVA) | payer MEDICARE, SELFPAY | PROVIDERS: PCP Internal Medicine; Visit Provider Surgery | DX: Z01.812 Encounter for preprocedural laboratory examination (principal); Z20.822 Contact with and (suspected) exposure to COVID-19 | CPT/HCPCS: 87635 ==

== ENCOUNTER 2021-02-24 12:26 | Observation (INO) | payer MEDICARE, SELFPAY ==
[2021-02-24 12:34] VITALS: BP 176/78; PULSE 71; RESP 18; O2SAT 94; BMI 30.2
--- NOTE | 2021-02-24 12:44 | CTR_ITS ---
PROCEDURE INFORMATION: Exam: CT Abdomen And Pelvis With Contrast Exam date and time: 02/24/2021 12:44 PM Age: 85 years old Clinical indication: Abdominal pain; Generalized; Additional info: Abd pain TECHNIQUE: Imaging protocol: Computed tomography of the abdomen and pelvis with contrast. Radiation optimization: All CT scans at this facility use at least one of these dose optimization techniques: automated exposure control; mA and/or kV adjustment per patient size (includes targeted exams where dose is matched to clinical indication); or iterative reconstruction. Contrast material: VISI 320; Contrast volume: 95 ml; Contrast route: INTRAVENOUS (IV); COMPARISON: CT abdomen pelvis w con* [id number] 08/01/2020 11:02 AM RADIATION DOSE METRICS: Total DLP (mGy-cm): 1591.52 FINDINGS: Liver: Normal. No mass. Gallbladder and bile ducts: Normal. No calcified stones. No ductal dilation. Pancreas: There is a 6.5 mm pancreatic body cyst stable since prior examination. This finding may represent a bland cyst or possibly a pancreatic cystic neoplasm. Repeat examination of the abdomen in 6 months is recommended to ensure stability of this finding. No ductal dilation. Spleen: Normal. No splenomegaly. Adrenal glands: Normal. No mass. Kidneys and ureters: Bilateral benign renal cyst left kidney lateral cyst 21 mm, posterior cyst 11 mm right kidney posterior cyst 15 mm findings are stable since prior examination No hydronephrosis. Stomach and bowel: Unremarkable. No obstruction. No mucosal thickening. Appendix: No evidence of appendicitis. Intraperitoneal space: Unremarkable. No free air. No significant fluid collection. Vasculature: Ectatic calcified abdominal aorta No abdominal aortic aneurysm. Lymph nodes: Unremarkable. No enlarged lymph nodes. Urinary bladder: Unremarkable as visualized. Reproductive: Unremarkable as visualized. Bones/joints: Moderate osteoarthritis lumbar spine with dextroscoliosis. No acute fracture. Soft tissues: Unremarkable. CT/CT abdomen pelvis w con* [id number] IMPRESSION: 1. Stable bilateral benign renal cyst. 2. Pancreatic body cyst stable since prior follow-up in 6 months 3. Lumbar spine osteoarthritis and dextroscoliosis. 4. Otherwise negative examination
--- NOTE | 2021-02-24 12:44 | CTR_ITS ---
PROCEDURE INFORMATION: Exam: CT Head Without Contrast Exam date and time: 02/24/2021 12:44 PM Age: 85 years old Clinical indication: Trauma. Fall with bleeding/hemorrhage. TECHNIQUE: Imaging protocol: Computed tomography of the head without contrast. Radiation optimization: All CT scans at this facility use at least one of these dose optimization techniques: automated exposure control; mA and/or kV adjustment per patient size (includes targeted exams where dose is matched to clinical indication); or iterative reconstruction. COMPARISON: CT head wo con* [id number] 07/06/2020 3:17 PM RADIATION DOSE METRICS: Total DLP (mGy-cm): 802.68 FINDINGS: Brain: No acute intracranial hemorrhage. No mass, mass effect or midline shift. There is no evidence of acute large vessel infarct. There is mild patchy subcortical and periventricular hypodensity, most commonly associated with small vessel ischemic disease of indeterminate age. The posterior fossa is grossly unremarkable; however, it is partially obscurred by beam hardening artifact. Cerebral ventricles: The ventricles are prominent, compatible with mild parenchymal volume loss. Paranasal sinuses: Globular debris in the sphenoid sinus. Mastoid air cells: No mastoid effusion. Orbital cavity: The visualized orbits are unremarkable. Bones/joints: No acute fracture is seen. CT/CT head wo con* [id number] IMPRESSION: 1. Mild senescent changes as above. 2. No acute intracranial abnormality.
--- NOTE | 2021-02-24 12:44 | XRR_ITS ---
PROCEDURE INFORMATION: Exam: XR Right Shoulder Exam date and time: 02/24/2021 12:44 PM Age: 85 years old Clinical indication: Pain; Shoulder; Right; Patient HX: PT fell this morning; Additional info: Shoulder pain TECHNIQUE: Imaging protocol: XR Right shoulder. Views: 2 or more views. COMPARISON: CR XR chest 1V portable [id number] 07/06/2020 1:52 PM FINDINGS: Bones/joints: Normal. Soft tissues: Normal. XR/XR shoulder RT min 2V* [id number] IMPRESSION: No acute findings.
[2021-02-24 12:51] LABS: Basophils % 0.3 %; Eosinophils # 0.1 10^3/uL (0.0-0.8); Hematocrit 40.3 % (37.0-47.0); Hemoglobin 13.3 g/dL (11.5-15.3); Lymphocytes # 1.6 10^3/uL (0.8-4.8); Lymphocytes % 21.8 %; Mean Corpuscular Hemoglobin 30.3 pg (28.0-34.0); Mean Corpuscular Volume 91.8 fl (81-99); Mean Platelet Volume 11.6 fL (7.4-10.4); Monocytes # 0.6 10^3/uL (0.2-0.9); Monocytes % 8.1 %; Neutrophils # 5.02 10^3/uL (1.8-7.7); Neutrophils % 68.7 %; Nucleated Red Blood Cells % 0 %; Platelet Count 203 10^3/cmm (130-400); Red Blood Count 4.39 10^6/uL (4.1-5.3); Red Cell Distribution Width 12.5 % (12.1-15.1); White Blood Count 7.3 10^3/uL (4.0-10.0)
[2021-02-24 13:06] LABS: Troponin(5th) Baseline 24 ng/L (0-10)
[2021-02-24 13:14] LABS: Blood Urea Nitrogen 18 mg/dL (8-23); Carbon Dioxide 20 mmol/L (22-29); Chloride 100 mmol/L (98-107); Glucose 249 mg/dL (65-115); NT Pro B Type Natriuretic Pept 946 pg/mL (0-450); Osmolality Calculated 290 mOsm/kg (285-295); Sodium 135 mmol/L (136-145)
--- NOTE | 2021-02-24 13:19 | ED_ITS ---
HPI - General Adult General: Chief complaint: Fall Stated complaint: ABD PAIN; SYNCOPE Time Seen by Provider: 02/24/21 12:27 History of Present Illness: HPI narrative: Patient is an 85-year-old female with history of CAD, congestive heart failure, hypertension, hyperlipidemia who presents the emergency room after an episode of fall at home. Patient tells me that since yesterday she has been having left lower quadrant abdominal pain. Earlier this morning, she had left lower quadrant dull pain was on the bathroom when she attempted to get up she felt very lightheaded. It is unclear whether patient passed out. Patient reports falling down and injuring her right shoulder. It is unclear whether patient hit her head. Patient tells me that she later went to lie down and continues to feel lightheaded whenever she tries to get up. Patient denies any melena but reports some light blood in the stool. Patient denies any hemoptysis, fever/chills, any previous abdominal surgeries other than hysterectomy. Denies any urinary symptoms, chest pain shortness breath or palpitation. Denies any fever or chills. Onset: 1 hr ago Duration:1 hr Location:ongoing Severity:moderate Review of Systems Narrative: Constitutional: No fever, no chills. HEENT: No vision changes CV: No chest pain, no palpitations PULM: no cough, no dyspnea. GI: +LLQ abdominal pain, no N/V/D. : No dysuria MSKEL: No muscle pain SKIN: No new rashes, no lesions. NEURO: No headache, no focal weakness +light-headedness. HEME: No visible bruises PSYCH: Normal mood PFSH ED PFSH: Medical History Benign essential hypertension Chronic diastolic heart failure Glaucoma Mixed hyperlipidemia Nonrheumatic mitral valve regurgitation Rectocele 02/07/2019: Patient reports a bulge at the vaginal opening that has been present for at least 6 weeks. On exam, she was noted to have a first-degree vault prolapse, first-degree cystocele, and second to third-degree rectocele. Patient decided to follow for now. Surgical History History of hysterectomy (~1976) KAROLINE, (unsure if has ovaries). Performed at [facility] in [place], [place] History of tubal ligation Hx of bilateral cataract extraction Status post colonoscopy Family History Grandmother Diabetes Maternal Mother Heart disease Father Heart disease Daughter Heart disease Stroke Sister Heart disease Stroke Colon cancer Brother Hypertension Denies family history of Anesthesia complication Bleeding disorder Social History Smoking and tobacco status: never smoked Alcohol intake: never Additional social history: Well balanced diet Physical Exam Narrative: EXAM NARRATIVE: Head: Atraumatic Eyes: PERRL, conjunctiva without injection ENT: Mucous membrane moist NECK: Supple, ROM intact LUNGS: LCTAB, no crackles/rhonchi CV: RRR ABDOMEN: Soft, + focal TTP LLQ. nO guarding rebound, guarding, rigidity. No CVA tenderness to percussion. Neg Merritt/Neg McBurney's point tenderness, no suprabupic tenderness to palpation. EXTREMITY: Normal ROM of the R shoulder SKIN: No rash or erythema NEURO: Mental status? Awake, alert, and oriented to self, year, month, location, and situation.? Following simple axial and appendicular commands.? Has appropriate fund of knowledge, comprehension, and insight.? Able to recall and understands pertinent aspects of medical history and current treatment status.? ? Language? Speech is fluent without word-finding difficulties.? Intact naming, expression, guest relations receptionist, and repetition.? ? Cranial nerves? 2,3,4,6: PERRL, EOMI with no nystagmus. 5: Intact sensation to light touch, symmetric? 7: Smile symmetrical, no facial droop.? 8: Hearing grossly intact.? 9,10: Normal palate movement.? 11: Normal strength in trapezius bilaterally 12: Tongue protrudes midline.? ? Motor examination? Normal bulk & tone. Strength as follows (R/L): Delts (5/5), Biceps (5/5), Triceps (5/5), Wrist ext (5/5), hip flexors (5/5), plantarflexors (5/5), dorsiflexors (5/5). ? Sensation? Light Touch: Grossly intact and equal in upper and lower extremities bilaterally? Romberg: Negative.? Distal joint position sense intact ? Coordination? Ztzdeh-bq-aiif-finger movements intact without dysmetria or past-pointing.? Rapid fingertaps: preserved amplitude without decriment.? No tremor, myoclonus or truncal ataxia.? PSYCH: Normal mood and affect Course Vital Signs: Vital signs: Vital Signs Pulse Rate 71 02/24/21 12:34 Respiratory Rate 18 02/24/21 12:34 Blood Pressure 176/78 02/24/21 12:34 Pulse Oximetry 94 02/24/21 12:34 MDM - General Adult MDM Narrative: Medical decision making narrative: 85-year-old female with a history of CAD, CHF, hypertension hyperlipidemia presented to emergency room with complaints of lightheadedness and fall. On exam, patient neuro exam exam intact. Unable to assess gait given lightheadedness. Troponin first 1 within normal limit. Lab work-up within normal limits. CT abdomen pelvis did not show any signs of acute findings in the left lower quadrant. X-ray showed negative for any acute finding. CT negative for any acute trauma. Troponin x 1 mildly elevated at 24 similar compared to baseline. Given episode of fall and lightheadedness and fall, patient will be in hospital for higher syncope work- up. Disposition: Admission Lab Data: Labs: Lab Results 02/24/21 02/24/21 02/24/21 12:15 12:15 12:15 WBC 7.3 10^3/uL 10^3/ uL (4.0-10.0) RBC 4.39 10^6/uL 10^6 /uL (4.1-5.3) Hgb 13.3 g/dL g/dL (11.5-15.3) Hct 40.3 % % (37.0-47.0) MCV 91.8 fl fl (81-99) MCH 30.3 pg pg (28.0-34.0) MCHC 33.0 g/dL g/dL (30.0-36.0) RDW 12.5 % % (12.1-15.1) Plt Count 203 10^3/cmm 10^3 /cmm (130-400) MPV 11.6 fL H fL (7.4-10.4) Neut % (Auto) 68.7 % % Lymph % (Auto) 21.8 % % [place] % (Auto) 8.1 % % Eos % (Auto) 1.0 % % Baso % (Auto) 0.3 % % Neut # (Auto) 5.02 10^3/uL 10^3 /uL (1.8-7.7) Lymph # (Auto) 1.6 10^3/uL 10^3/ uL (0.8-4.8) [place] # (Auto) 0.6 10^3/uL 10^3/ uL (0.2-0.9) Eos # (Auto) 0.1 10^3/uL 10^3/ uL (0.0-0.8) Baso # (Auto) 0.0 10^3/uL 10^3/ uL (0.0-0.1) Nucleated RBC % (a uto) 0 % % Nucleated RBCs # 0.0 /100WBC /100W BC Sodium 135 mmol/L L mmol /L (136-145) Potassium 4.0 mmol/L mmol/L (3.5-5.1) Chloride 100 mmol/L mmol/L (98-107) Carbon Dioxide 20 mmol/L L mmol/ L (22-29) Anion Gap 19.0 (5-19) BUN 18 mg/dL mg/dL (8-23) Creatinine 0.8 mg/dL mg/dL (0.5-0.9) GFR Calculation Not Reportable Glucose 249 mg/dL H mg/dL (65-115) Calculated Osmolal ity 290 mOsm/kg mOsm/ kg (285-295) Calcium 9.0 mg/dL mg/dL (8.5-10.5) Troponin T Baselin e 24 ng/L H ng/L (0-10) Troponin T 120 [place] Troponin T NT-Pro-B Natriuret Pep 946 pg/mL H pg/mL (0-450) 02/24/21 14:15 WBC RBC Hgb Hct MCV MCH MCHC RDW Plt Count MPV Neut % (Auto) Lymph % (Auto) [place] % (Auto) Eos % (Auto) Baso % (Auto) Neut # (Auto) Lymph # (Auto) [place] # (Auto) Eos # (Auto) Baso # (Auto) Nucleated RBC % (a uto) Nucleated RBCs # Sodium Potassium Chloride Carbon Dioxide Anion Gap BUN Creatinine GFR Calculation Glucose Calculated Osmolal ity Calcium Troponin T Baselin e Troponin T 120 [place] 20.02 ng/L H ng/L (0-10) Delta Troponin T -3.98 ABS# L ABS# (0-10) NT-Pro-B Natriuret Pep Imaging Data^: Other Imaging: Radiologist's impression: [address], [place] [address]SBmo ReportSigned Patient: Zaki Pantoja #: [id number]: 1935ct#:[id number]/Sex: 85 / FADM Date: 02/24/21Loc: ERRoom/Bed:Attending Dr: Ordering Provider/Ordering MD: Barrington Marinelli MD Date of Service: 02/24/21 Procedure(s): XR shoulder RT min 2V* [id number] Accession Number(s): [id number] Report Number: [id number] PROCEDURE INFORMATION: Exam: XR Right Shoulder Exam date and time: 02/24/2021 12:44 PM Age: 85 years old Clinical indication: Pain; Shoulder; Right; Patient HX: PT fell this morning; Additional info: Shoulder pain TECHNIQUE: Imaging protocol: XR Right shoulder. Views: 2 or more views. COMPARISON: CR XR chest 1V portable [id number] 07/06/2020 1:52 PM FINDINGS: Bones/joints: Normal. Soft tissues: Normal. XR/XR shoulder RT min 2V* [id number] IMPRESSION: No acute findings. Dictated By:Sonia Fish By:Sonia Fish Date/Time:02/24/21 1431DD/ [address] [address]GU Scan ReportSigned Patient: Zaki Pantoja #: [id number]: 1935ct#:[id number]/Sex: FADM Date: 02/24/21Loc: ERRoom/Bed:Attending Dr: Ordering Provider/Ordering MD: Barrington Marinelli MD Date of Service: 02/24/21 Procedure(s): CT head wo con* [id number] Accession Number(s): [id number] Report Number: [id number] PROCEDURE INFORMATION: Exam: CT Head Without Contrast Exam date and time: 02/24/2021 12:44 PM Age: 85 years old Clinical indication: Trauma. Fall with bleeding/hemorrhage. TECHNIQUE: Imaging protocol: Computed tomography of the head without contrast. Radiation optimization: All CT scans at this facility use at least one of these dose optimization techniques: automated exposure control; mA and/or kV adjustment per patient size (includes targeted exams where dose is matched to clinical indication); or iterative reconstruction. COMPARISON: CT head wo con* [id number] 07/06/2020 3:17 PM RADIATION DOSE METRICS: Total DLP (mGy-cm): 802.68 FINDINGS: Brain: No acute intracranial hemorrhage. No mass, mass effect or midline shift. There is no evidence of acute large vessel infarct. There is mild patchy subcortical and periventricular hypodensity, most commonly associated with small vessel ischemic disease of indeterminate age. The posterior fossa is grossly unremarkable; however, it is partially obscurred by beam hardening artifact. Cerebral ventricles: The ventricles are prominent, compatible with mild parenchymal volume loss. Paranasal sinuses: Globular debris in the sphenoid sinus. Mastoid air cells: No mastoid effusion. Orbital cavity: The visualized orbits are unremarkable. Bones/joints: No acute fracture is seen. CT/CT head wo con* [id number] IMPRESSION: 1. Mild senescent changes as above. 2. No acute intracranial abnormality. Dictated By:Candi Howelligned By:Candi Howelligned Date/Time:02/24/21 1451DD/ [address] [address]XO Scan ReportSigned Patient: Zaki Pantoja #: [id number]: [id number]#:[id number]/Sex: 85 / FADM Date: 02/24/21Loc: ERRoom/Bed:Attending Dr: Ordering Provider/Ordering MD: Barrington Marinelli MD Date of Service: 02/24/21 Procedure(s): CT abdomen pelvis w con* [id number] Accession Number(s): [id number] Report Number: [id number] PROCEDURE INFORMATION: Exam: CT Abdomen And Pelvis With Contrast Exam date and time: 02/24/2021 12:44 PM Age: 85 years old Clinical indication: Abdominal pain; Generalized; Additional info: Abd pain TECHNIQUE: Imaging protocol: Computed tomography of the abdomen and pelvis with contrast. Radiation optimization: All CT scans at this facility use at least one of these dose optimization techniques: automated exposure control; mA and/or kV adjustment per patient size (includes targeted exams where dose is matched to clinical indication); or iterative reconstruction. Contrast material: VISI 320; Contrast volume: 95 ml; Contrast route: INTRAVENOUS (IV); COMPARISON: CT abdomen pelvis w con* [id number] 08/01/2020 11:02 AM RADIATION DOSE METRICS: Total DLP (mGy-cm): 1591.52 FINDINGS: Liver: Normal. No mass. Gallbladder and bile ducts: Normal. No calcified stones. No ductal dilation. Pancreas: There is a 6.5 mm pancreatic body cyst stable since prior examination. This finding may represent a bland cyst or possibly a pancreatic cystic neoplasm. Repeat examination of the abdomen in 6 months is recommended to ensure stability of this finding. No ductal dilation. Spleen: Normal. No splenomegaly. Adrenal glands: Normal. No mass. Kidneys and ureters: Bilateral benign renal cyst left kidney lateral cyst 21 mm, posterior cyst 11 mm right kidney posterior cyst 15 mm findings are stable since prior examination No hydronephrosis. Stomach and bowel: Unremarkable. No obstruction. No mucosal thickening. Appendix: No evidence of appendicitis. Intraperitoneal space: Unremarkable. No free air. No significant fluid collection. Vasculature: Ectatic calcified abdominal aorta No abdominal aortic aneurysm. Lymph nodes: Unremarkable. No enlarged lymph nodes. Urinary bladder: Unremarkable as visualized. Reproductive: Unremarkable as visualized. Bones/joints: Moderate osteoarthritis lumbar spine with dextroscoliosis. No acute fracture. Soft tissues: Unremarkable. CT/CT abdomen pelvis w con* [id number] IMPRESSION: 1. Stable bilateral benign renal cyst. 2. Pancreatic body cyst stable since prior follow-up in 6 months 3. Lumbar spine osteoarthritis and dextroscoliosis. 4. Otherwise negative examination Dictated By:Sonia Fish By:Sonia Fish Date/Time:02/24/21 1441DD/ 1244 Discharge Plan Discharge Patient Disposition: Admitted As Inpatient Clinical Impression: Feeling light headed, Fall, Abdominal pain Condition: Stable Coding Level of Care Code ED Soft Work Wrapper Examiner for Ally Meredith
[2021-02-24 14:43] LABS: Troponin 5 2HR 20.02 ng/L (0-10)
[2021-02-24 14:45] LABS: Troponin 5 2HR Delta -3.98 ABS# (0-10)
[2021-02-24] MEDS: sodium chloride 0.9% 1,000 ML 999 ML IV (15:03)
--- NOTE | 2021-02-24 17:09 | P.HP_ITS ---
Providers/Chief Complaint Primary Care Provider: Mely Combs MD Chief Complaint: ABD PAIN; SYNCOPE History of Present Illness Marsha Pantoja is a 85 year old female diastolic CHF, hypertension, history of syncope, history of mitral valve regurg, hyperlipidemia, history of bradycardia, history of nonsustained V. tach who presents to [facility] due to episode of syncope. Patient has a history of syncope in the past, orthostatic hypotension, bradycardia, history of nonsustained V. tach. She has been doing fine for the last year, recently she has been having episodes of high blood pressure, she was supposed to increase her hydralazine to 75 mg 3 times daily but did not increase it. She tells me this morning she got up to use the bathroom, and she felt lightheaded, dizzy, she thought she was going to pass out, so she went to the bed, and she called her neighbor who called her daughter, she thought to herself that she would have to open the door, so she went to the front door and that the last thing she clearly remembers. She vaguely remembers maybe making making it to the couch, she did not open the fro nt door. She was found on her couch by EMS, and her daughter, no seizure-like episodes, no strokelike symptoms, facial no slurring of her words, no focal neurologic deficits. No chest pain, no palpitations, no lightheadedness, dizziness. No nausea, no vomiting. In the emergency room she had no e lectrolyte abnormalities. No focal pneumonia. CT of the head no acute abnormalities. Initial troponin was 24. 120-minute 20. UA pending. She also complained of nonspecific abdominal pain, possible left lower quadrant pain, CT of the the abdomen pelvis had no acute findings. Review of Systems Const: Denies: fever(s), chills, fatigue or malaise Eyes: Denies: change in vision ENMT: Denies: nasal congestion Card: Reports: lightheadedness and syncope; Denies: chest pain, palpitations, irregular heart rhythm, edema or dyspnea on exertion Resp: Denies: dyspnea, productive cough, non-productive cough or wheezing GI: Denies: abdominal pain, nausea, vomiting, hematemesis, diarrhea, constipat ion, hematochezia or melena : Denies: flank pain, difficulty voiding, dysuria or urinary frequency Musc: Denies: neck pain or back pain Skin/Breast: Denies: rash Neuro: Denies: headache(s), dizziness or vertigo Psych: Denies: anxiety Endo: Denies: polyuria or polydipsia Medications/Allergies Home Medications Medication Instructions Recorded Confirmed Last Taken Type atorvastatin 20 mg tablet 20 mg PO DAILY@08 tab 03/23/19 02/24/21 02/23/21 History brimonidine 0.2 % eye drops 1 drop OPHTHALMIC (EYE) BID@,03/23/19 02/24/21 02/24/21 History isosorbide mononitrate 120 mg 120 mg PO DAILY@08 03/23/19 02/24/21 02/24/21 History tablet,extended release 24 hr timolol maleate 0.5 % eye drops 1 drop OPHTHALMIC (EYE) BID@,03/23/19 02/24/21 02/24/21 History ml vitamins A,C,I-rasu-ovduzp 14,320 1 cap PO DAILY@03/23/19 02/24/21 02/24/21 History unit-226 mg-200 unit capsule losartan 100 mg tablet 100 mg PO DAILY@08 tab 01/18/20 02/24/21 02/24/21 History latanoprost 1 drp OPHTHALMIC (EYE) DAILY@01/20/20 02/24/21 02/23/21 History furosemide 20 mg PO DAILY@02/28/20 02/24/21 02/24/21 History oxybutynin chloride 10 mg PO DAILY@02/28/20 02/24/21 02/24/21 History pantoprazole 40 mg PO DAILY@07/06/20 02/24/21 02/24/21 History cholecalciferol (vitamin D3) 25 mcg PO DAILY 02/24/21 02/24/21 02/24/21 History [Vitamin D3] hydralazine 50 mg PO BID 02/24/21 02/24/21 02/24/21 History Allergies Allergy/AdvReac Type Severity Reaction Status Date / Time amlodipine Allergy Head feels Verified 02/24/21 12:27 funny, mental status change aspirin Allergy rash Verified 02/24/21 12:27 Penicillins Allergy rash Verified 02/24/21 12:27 PFSH Acute PFSH: Medical History Benign essential hypertension Chronic diastolic heart failure Glaucoma Mixed hyperlipidemia Nonrheumatic mitral valve regurgitation Rectocele 02/07/2019: Patient reports a bulge at the vaginal opening that has been present for at least 6 weeks. On exam, she was noted to have a first-degree vault prolapse, first-degree cystocele, and second to third-degree rectocele. Patient decided to follow for now. Surgical History History of hysterectomy (~1976) KAROLINE, (unsure if has ovaries). Performed at [facility] in [place], [place] History of tubal ligation Hx of bilateral cataract extraction Status post colonoscopy Family History Grandmother Diabetes Maternal Mother Heart disease Father Heart disease Daughter Heart disease Stroke Sister Heart disease Stroke Colon cancer Brother Hypertension Denies family history of Anesthesia complication Bleeding disorder Social History Smoking and tobacco status: never smoked Alcohol intake: never Additional social history: Well balanced diet Vitals/I&O/Wt Last Vital Signs Pulse 71 02/24/21 12:34 Resp 18 02/24/21 12:34 BP 176/78 02/24/21 12:34 Pulse Ox 94 02/24/21 12:34 02/24/21 02/24/21 02/24/21 06:59 14:59 22:59 Intake Total 1000 / 1000 Balance 1000 / 1000 Weight last 48 hrs Weight 68.039 kg Physical Exam Const: COMMON NORMALS: no acute distress and patient oriented x3 GENERAL APPEARANCE: cooperative and comfortable HENMT: COMMON NORMALS: normocephalic HEAD & SCALP: normocephalic Eye: COMMON NORMALS: Equal, round and reactive pupils present and EOMs intact bilaterally GENERAL EYE: appearance normal, both eyes and all related structures PUPIL: Yes Equal, round and reactive pupils present Neck/C-Spine: COMMON NORMALS: full ROM and no lymphadenopathy THYROID: Thyroid normal Lymph: LYMPHATIC: no lymphadenopathy noted Resp: COMMON NORMALS: normal respiratory effort, No retractions, No use of ac cessory muscles and clear to auscultation bilaterally AUSCULTATION: clear to auscultation bilaterally Cardio: COMMON NORMALS: regular rate, regular rhythm, S1 normal heart sound present, S2 normal heart sound present, No gallops present (Cardio), No clicks present (Cardio) and No murmurs present (Cardio) RATE: regular rate RHYTHM: regular rhythm HEART SOUNDS: S1 normal heart sound present and S2 normal heart sound present GI: COMMON NORMALS: Normal to inspection, nondistended, normoactive bowel sounds present, Soft to palpation and non-tender Extremity: COMMON NORMALS: normal to inspection, full ROM and no pedal edema Neuro: COMMON NORMALS: patient oriented x3, CN's II-XII intact bilaterally, moves all extremities and no focal motor deficits Psych: COMMON NORMALS: mental status grossly normal, Normal thought process present and cooperative THOUGHT PROCESS: Normal thought process present Data : 02/24/21 12:15 02/24/21 12:15 A&P Assessment and plan (1) Syncope: -History of syncope, secondary to orthostatic hypotension, and bradycardia -She does state that she feels lightheaded after she takes all her morning blood pressure medications -Likely syncope related to polypharmacy -Decrease losartan to 50 every 12 hours -Decrease hydralazine to 25 mg 3 times daily -Decrease Imdur to 60 mg every 24 hours -Decrease oxybutynin dose in half -Does have elevated blood sugar, known history of diabetes, will check an A1c, and monitor blood sugars -Does not look fluid overloaded -We will perform orthostatic vitals -Troponins are elevated, serial troponins, serial EKGs, telemetry monitoring, monitor for chest pain, -Head CT no acute findings -Head MRI on 01/27/2020 no acute findings -Cardiac echocardiogram on May 2019 showed an EF of 66%, mild LVH, grade 1 out of 4 diastolic dysfunction, -Carotid artery ultrasound May 2019 showed no hemodynamically significant carotid artery stenosis -PT OT -Full code -Heparin for DVT prophylaxis Status: Acute (2) Aortic valve sclerosis: Status: Acute (3) Chronic diastolic heart failure: Status: Acute (4) Benign essential hypertension: Status: Acute (5) Mixed hyperlipidemia: Status: Acute (6) Urgency incontinence: Status: Acute (7) Nonrheumatic mitral valve regurgitation: Status: Acute Attestations Medical Necessity Statement*: Patient requires hospitalization, for syncope, outpatient with observation Coding Level of Care Code Acute Integrated Program Teacher for Chg Fwd Diagnoses Syncope R55 Aortic valve sclerosis I35.8 Chronic diastolic heart failure I50.32 Benign essential hypertension I10 Mixed hyperlipidemia E78.2 Urgency incontinence N39.41 Nonrheumatic mitral valve regurgitation I34.0
[2021-02-24 18:05] VITALS: BP 188/80; PULSE 89; RESP 17; O2SAT 96
[2021-02-24 18:15] LABS: Add Urine Microscopic? NO; Charge for UA Resulting for Rev
[2021-02-24 18:35] LABS: Bilirubin Urine Neg (Negative); Blood Urine Neg (Negative); Glucose Urine UA Norm (Normal); Ketones Urine Negative (Negative); Leukocyte Esterase Urine Negative (Negative); Nitrate Urine Negative (Negative); Protein Urine Neg (Negative); Urine Appearance Clear (CLEAR); Urine Color Yellow (Yellow); Urobilinogen Urine Norm (Negative); pH Urine 8 (5-7)
[2021-02-24 18:52] LABS: Estmated Average Glucose 146; Hemoglobin A1C 6.7 % (4.0-6.0)
[2021-02-24 18:56] VITALS: BP 188/80; BP 201/87; PULSE 66; PULSE 89; RESP 15; RESP 17; TEMP 36.4
[2021-02-24 19:21] LABS: Troponin 5 6HR 20.52 ng/L (0-10)
[2021-02-24 19:24] LABS: Troponin 5 6HR Delta -3.48 ng/L (0-12)
[2021-02-24 19:33] LABS: Thyroid Stimulating Hormone 1.53 uIU/mL (0.27-4.20)
[2021-02-24 20:00] VITALS: BP 197/94; PULSE 63; RESP 15; TEMP 36.3; TEMP 36.4
[2021-02-24] MEDS: losartan 50 mg Tablet PO (21:48)
[2021-02-24] MEDS: heparin 5,000 unit/mL INJ 1 mL 5000 UNIT SUBCUT (21:48)
[2021-02-24] MEDS: hyDRALAzine 50 mg Tablet 25 MG PO (21:49)
[2021-02-24] MEDS: timolol 0.5% Op Soln 5 mL Btl 1 DROP EYE-BOTH (21:51)
[2021-02-24] MEDS: brimonidine 0.2% Op Soln 5 mL Btl 1 DROP EYE-BOTH (21:51)
[2021-02-24] MEDS: latanoprost 0.005% Op Soln 2.5 mL Btl 1 DROP EYE-BOTH (21:52)
[2021-02-24 22:00] VITALS: PULSE 66
[2021-02-24] MEDS: acetaminophen 325 mg Tablet 650 MG PO (23:39)
[2021-02-25] VITALS (13 sets, daily range): BP systolic 102–197; BP diastolic 54–96; PULSE 59–75; RESP 15–21; TEMP 36.3–36.8; O2SAT 91–95
[2021-02-25 04:21] LABS: Basophils % 0.1 %; Eosinophils # 0.1 10^3/uL (0.0-0.8); Eosinophils % 1.3 %; Hematocrit 34.1 % (37.0-47.0); Hemoglobin 11.4 g/dL (11.5-15.3); Lymphocytes # 2.1 10^3/uL (0.8-4.8); Lymphocytes % 30.5 %; Mean Corpuscular HGB Conc 33.4 g/dL (30.0-36.0); Mean Corpuscular Hemoglobin 30.3 pg (28.0-34.0); Mean Corpuscular Volume 90.7 fl (81-99); Mean Platelet Volume 11.3 fL (7.4-10.4); Monocytes # 0.8 10^3/uL (0.2-0.9); Monocytes % 11.6 %; Neutrophils # 3.94 10^3/uL (1.8-7.7); Neutrophils % 56.2 %; Nucleated Red Blood Cells % 0 %; Platelet Count 167 10^3/cmm (130-400); Red Blood Count 3.76 10^6/uL (4.1-5.3); Red Cell Distribution Width 12.3 % (12.1-15.1)
[2021-02-25 04:41] LABS: Anion Gap 15.4 (5-19); Blood Urea Nitrogen 16 mg/dL (8-23); Calcium 8.6 mg/dL (8.5-10.5); Carbon Dioxide 22 mmol/L (22-29); Chloride 105 mmol/L (98-107); Glucose 109 mg/dL (65-115); Magnesium 1.6 mg/dL (1.7-2.3); Osmolality Calculated 290 mOsm/kg (285-295); Phosphorus 3.3 mg/dL (2.5-4.5); Potassium 3.4 mmol/L (3.5-5.1); Sodium 139 mmol/L (136-145)
[2021-02-25] MEDS: losartan 50 mg Tablet PO ×2 (06:53→21:23)
[2021-02-25 07:10] LABS: Glucose Point of Care 108 mg/dL (70-110)
--- NOTE | 2021-02-25 09:09 | PC.CHAP ---
Pastoral Care Encounter/Spiritual Assessment Type of Contact [] Declined teller head visit [] Patient/Family/Request visit [] Outpatient visit [] Follow-up visit [] Physician referral [] Code/Alert [x] Routine visit [] Staff referral [] Actively dying [] Patient sleeping [] Family support [] [] Out of room [] Palliative care [] [x] Receiving care in room [] Pre-surgical visit [] Trauma [] Long length of stay [] ICU visit [] Other: Relational/Emotional Strength [] Patient feels connected with others/family/visitors/staff [] Distress [] Loneliness/isolation [] Abandonment Spirituality of Patient [] Person of Jackie [] Attends Yazidism of their Jackie [] Believes in Prayer [] Reads Bible or Bahai materials [] There are Spiritual issues to be addressed Field Operator Interventions [x] Prayer [] Active listening [] Non-anxious presence [] Spiritual/emotional support [] Crisis/trauma care [] Spiritual counseling [] Bereavement support [] Provided bereavement packet [] Provided Bible/devotional materials [] Provided toy/stuffed animal, coloring book to patient or family member [] Provided Communion [] Anointing/[place] [] Salvation [x] Completed spiritual assessment [] Other: Impact on Illness or Injury [] Angry [] Fearful [] Anxious [] Often cries [] Exhaustion [] Unable to work [] Unable to attend rastafari [] Unable to walk/stand [] Unable to read [] Unable to drive [] Unable to eat/drink [] Unable to sleep [] Unable to be with family [] Patient intubated [] Other: Summary Time spent with patient
[2021-02-25] MEDS: oxybutynin chloride XL 5 MG TABLET PO (09:38)
[2021-02-25] MEDS: cholecalciferol (vitamin D3) 1,000 unit Tablet 1000 UNIT PO (09:38)
[2021-02-25] MEDS: pantoprazole DR 40 mg Tablet PO (09:38)
[2021-02-25] MEDS: FUROsemide 20 mg Tablet PO (09:38)
[2021-02-25] MEDS: isosorbide mononitrate ER 60 mg Tablet PO (09:41)
[2021-02-25] MEDS: atorvastatin 40 mg Tablet 20 MG PO (09:41)
[2021-02-25] MEDS: hyDRALAzine 50 mg Tablet 25 MG PO ×3 (09:41→21:23)
[2021-02-25] MEDS: timolol 0.5% Op Soln 5 mL Btl 1 DROP EYE-BOTH ×2 (09:42→21:34)
[2021-02-25] MEDS: heparin 5,000 unit/mL INJ 1 mL 5000 UNIT SUBCUT ×2 (09:42→21:25)
[2021-02-25] MEDS: brimonidine 0.2% Op Soln 5 mL Btl 1 DROP EYE-BOTH ×2 (09:42→21:34)
[2021-02-25 10:59] LABS: Glucose Point of Care 140 mg/dL (70-110)
[2021-02-25] MEDS: acetaminophen 325 mg Tablet 650 MG PO (13:10)
[2021-02-25 16:59] LABS: Glucose Point of Care 198 mg/dL (70-110)
--- NOTE | 2021-02-25 17:54 | PM.PN ---
Subjective Subjective: Interval history: Patient was seen and examined this morning she is complaining of fatigue. Blood pressure was high this morning, likely secondary to cutting back on the antihypertensives, orthostatic vital signs have been negative. Medications: Reviewed: Yes Vitals/I&O/Wt Last Vital Signs Temp 98.1 F 02/25/21 16:00 Pulse 64 02/25/21 16:00 Resp 15 02/25/21 16:00 BP 149/82 02/25/21 16:00 Pulse Ox 95 02/25/21 16:00 02/25/21 02/25/21 02/25/21 06:59 14:59 22:59 Intake Total 240 / 240 Balance 240 / 240 Weight last 48 hrs Weight 68.039 kg Weight 68.039 kg Physical Exam Const: COMMON NORMALS: patient oriented x3 HENMT: COMMON NORMALS: normocephalic and atraumatic HEAD & SCALP: normocephalic and atraumatic Resp: COMMON NORMALS: clear to auscultation bilaterally AUSCULTATION: clear to auscultation bilaterally Cardio: COMMON NORMALS: regular rate, regular rhythm, S1 normal heart sound present, S2 normal heart sound present, No gallops present (Cardio), No murmurs present (Cardio), No rub (Cardio) and Peripheral pulses 2+ throughout RATE: regular rate RHYTHM: regular rhythm HEART SOUNDS: S1 normal heart sound present and S2 normal heart sound present PERIPHERAL PULSES: Peripheral pulses 2+ throughout GI: COMMON NORMALS: Normal to inspection, nondistended, normoactive bowel sounds present, Soft to palpation, non-tender, No hepatosplenomegaly present and no masses AUSCULTATION: Yes normoactive bowel sounds PALPATION: Yes Soft to palpation and Yes No hepatosplenomegaly present RECTAL EXAM: deferred Extremity: COMMON NORMALS: no clubbing, cyanosis or edema and no pedal edema Neuro: COMMON NORMALS: patient oriented x3 Data : 02/25/21 03:30 02/25/21 03:30 Micro: Microbiology 02/24/21 19:32 Blood Culture - Preliminary Blood SPECIMEN COLLECTED 02/24/21 18:21 Blood Culture - Preliminary Blood SPECIMEN COLLECTED A&P Assessment and plan (1) Syncope: -History of syncope, secondary to orthostatic hypotension, and bradycardia -She does state that she feels lightheaded after she takes all her morning blood pressure medications -Likely syncope related to polypharmacy -Decrease losartan to 50 every 12 hours -Decrease hydralazine to 25 mg 3 times daily -Decrease Imdur to 60 mg every 24 hours -Decrease oxybutynin dose in half -Does have elevated blood sugar, known history of diabetes, will check an A1c, and monitor blood sugars -Does not look fluid overloaded -We will perform orthostatic vitals -Troponins are elevated, serial troponins, serial EKGs, telemetry monitoring, monitor for chest pain, -Head CT no acute findings -Head MRI on 01/27/2020 no acute findings -Cardiac echocardiogram on May 2019 showed an EF of 66%, mild LVH, grade 1 out of 4 diastolic dysfunction, -Carotid artery ultrasound May 2019 showed no hemodynamically significant carotid artery stenosis -PT OT -Full code -Heparin for DVT prophylaxis Status: Acute (2) Aortic valve sclerosis: Status: Acute (3) Chronic diastolic heart failure: Status: Acute (4) Benign essential hypertension: Status: Acute (5) Mixed hyperlipidemia: Status: Acute (6) Urgency incontinence: Status: Acute (7) Nonrheumatic mitral valve regurgitation: Status: Acute Attestations Medical Necessity Statement*: Patient needs to be in hospital for management of syncope, better blood pressure control, need for ongoing monitoring Coding Level of Care Code Acute Snuff Blender for [facility] Fwd Diagnoses Syncope R55 Aortic valve sclerosis I35.8 Chronic diastolic heart failure I50.32 Benign essential hypertension I10 Mixed hyperlipidemia E78.2 Urgency incontinence N39.41 Nonrheumatic mitral valve regurgitation I34.0
--- NOTE | 2021-02-25 20:14 | PC.NURSE ---
Shift Note Frequent safety and comfort rounds continue. Orders and/or nursing care completed as indicated. Patient monitored for response to intervention and treatment(s). Education provided includes BP control, medication dose changes, orthostatic BP checks. Patient and/or underwriting service representative verbalizes understanding . Will continue to monitor.
[2021-02-25 20:58] LABS: Glucose Point of Care 164 mg/dL (70-110)
[2021-02-25] MEDS: latanoprost 0.005% Op Soln 2.5 mL Btl 1 DROP EYE-BOTH (21:34)
[2021-02-26] VITALS (12 sets, daily range): BP systolic 87–205; BP diastolic 44–107; PULSE 59–73; RESP 13–18; TEMP 36.4–36.6; O2SAT 93–95
[2021-02-26 04:10] LABS: Basophils % 0.3 %; Eosinophils # 0.1 10^3/uL (0.0-0.8); Eosinophils % 2.1 %; Hematocrit 34.3 % (37.0-47.0); Hemoglobin 11.4 g/dL (11.5-15.3); Lymphocytes # 2.4 10^3/uL (0.8-4.8); Lymphocytes % 42.4 %; Mean Corpuscular HGB Conc 33.2 g/dL (30.0-36.0); Mean Corpuscular Hemoglobin 30.1 pg (28.0-34.0); Mean Corpuscular Volume 90.5 fl (81-99); Mean Platelet Volume 11.1 fL (7.4-10.4); Monocytes # 0.6 10^3/uL (0.2-0.9); Neutrophils # 2.53 10^3/uL (1.8-7.7); Nucleated Red Blood Cells % 0 %; Platelet Count 157 10^3/cmm (130-400); Red Blood Count 3.79 10^6/uL (4.1-5.3); Red Cell Distribution Width 12.2 % (12.1-15.1); White Blood Count 5.8 10^3/uL (4.0-10.0)
[2021-02-26 04:31] LABS: Anion Gap 13.6 (5-19); Blood Urea Nitrogen 17 mg/dL (8-23); Calcium 8.5 mg/dL (8.5-10.5); Carbon Dioxide 23 mmol/L (22-29); Chloride 105 mmol/L (98-107); Glucose 108 mg/dL (65-115); Magnesium 1.7 mg/dL (1.7-2.3); Osmolality Calculated 288 mOsm/kg (285-295); Phosphorus 2.9 mg/dL (2.5-4.5); Potassium 3.6 mmol/L (3.5-5.1); Sodium 138 mmol/L (136-145)
[2021-02-26] MEDS: losartan 50 mg Tablet PO (05:07)
[2021-02-26 07:02] LABS: Glucose Point of Care 111 mg/dL (70-110)
[2021-02-26] MEDS: isosorbide mononitrate ER 60 mg Tablet PO (07:46)
[2021-02-26] MEDS: atorvastatin 40 mg Tablet 20 MG PO (07:46)
[2021-02-26] MEDS: pantoprazole DR 40 mg Tablet PO (07:46)
[2021-02-26] MEDS: FUROsemide 20 mg Tablet PO (07:46)
[2021-02-26] MEDS: cholecalciferol (vitamin D3) 1,000 unit Tablet 1000 UNIT PO (07:47)
[2021-02-26] MEDS: oxybutynin chloride XL 5 MG TABLET PO (07:47)
[2021-02-26] MEDS: heparin 5,000 unit/mL INJ 1 mL 5000 UNIT SUBCUT (07:47)
[2021-02-26] MEDS: hyDRALAzine 50 mg Tablet 25 MG PO (07:52)
--- NOTE | 2021-02-26 09:15 | PC.CHAP ---
Pastoral Care Encounter/Spiritual Assessment Type of Contact [] Declined catshovel driver visit [] Patient/Family/Request visit [] Outpatient visit [] Follow-up visit [] Physician referral [] Code/Alert [x] Routine visit [] Staff referral [] Actively dying [] Patient sleeping [] Family support [] [] Out of room [] Palliative care [] [] Receiving care in room [] Pre-surgical visit [] Trauma [] Long length of stay [] ICU visit [] Other: Relational/Emotional Strength [x] Patient feels connected with others/family/visitors/staff [] Distress [] Loneliness/isolation [] Abandonment Spirituality of Patient [x] Person of Jackie [] Attends Yarsanism of their Jackie [x] Believes in Prayer [] Reads Bible or Islam materials [] There are Spiritual issues to be addressed Diagnostic Tech Interventions [x] Prayer [x] Active listening [x] Non-anxious presence [x] Spiritual/emotional support [] Crisis/trauma care [] Spiritual counseling [] Bereavement support [] Provided bereavement packet [] Provided Bible/devotional materials [] Provided toy/stuffed animal, coloring book to patient or family member [] Provided Communion [] Anointing/[place] [] Salvation [x] Completed spiritual assessment [] Other: Impact on Illness or Injury [] Angry [] Fearful [] Anxious [] Often cries [] Exhaustion [] Unable to work [] Unable to attend mormon [] Unable to walk/stand [] Unable to read [] Unable to drive [] Unable to eat/drink [] Unable to sleep [] Unable to be with family [] Patient intubated [] Other: Summary Pt was sitting in a chair eating breakfast when catshovel driver arrived. She indicated the meal was good and she is feeling much better than she did. Pt lives alone in an apartment in a care facility and she stated she really likes her place. She has one child who lives in [place] that she will not see this holiday season. However, she has a daughter living in [place] area that she will spend the [place] holiday with. Pt said she has 11 grand children and 3 great grand children. Two of the great grands are twins, a brother and a sister. Time spent with patient 15 m
[2021-02-26] MEDS: timolol 0.5% Op Soln 5 mL Btl 1 DROP EYE-BOTH (10:40)
[2021-02-26] MEDS: brimonidine 0.2% Op Soln 5 mL Btl 1 DROP EYE-BOTH (10:41)
--- NOTE | 2021-02-26 11:46 | PM.DCS ---
Discharge Providers Date of Admission: 02/24/21 14:52 Date of Discharge: February 26, 2021 Attending Provider at Admission: Carlos Acosta MD Attending Provider at Discharge: Hollis Estrella MD Primary Care Provider: Mely Combs MD Diagnoses at Discharge Discharge Diagnosis (1) Syncope: Status: Resolved (2) Aortic valve sclerosis: Status: Acute (3) Chronic diastolic heart failure: Status: Acute (4) Benign essential hypertension: Status: Acute (5) Mixed hyperlipidemia: Status: Acute (6) Urgency incontinence: Status: Acute (7) Nonrheumatic mitral valve regurgitation: Status: Acute Reason for Visit Reason for Visit: ABD PAIN; SYNCOPE Hospital Course Hospital Course 85 year old female diastolic CHF, hypertension, history of syncope, history of mitral valve regurg, hyperlipidemia, history of bradycardia, history of nonsustained V. tach who presents to [facility] due to episode of syncope. Patient has a history of syncope in the past, orthostatic hypotension, bradycardia, history of nonsustained V. tach. She was admitted for the management of syncope likely secondary to polypharmacy,CT no acute findings,Head MRI on 01/27/2020 no acute findings.Cardiac echocardiogram on May 2019 showed an EF of 66%, mild LVH, grade 1 out of 4 diastolic dysfunction, Carotid artery ultrasound May 2019 showed no hemodynamically significant carotid artery stenosis. During this hospital stay she was continued on telemetry monitoring, no significant arrhythmia was noted, orthostatic vital signs were checked which were negative, slight changes were made to her blood pressure medications Instead of continuing hydralazine 50 twice daily, she was switched to hydralazine 25 mg p.o. 3 times daily, losartan was made 50 twice daily, Imdur has been continued at 120mg po daily, clonidine as needed has been continued for systolic blood pressure greater than 180, patient responded well to above medical management, and she is being discharged in stable condition to home, stable continue to follow with PCP as well as cardiology as an outpatient. Physical Exam Const: COMMON NORMALS: patient oriented x3 HENMT: COMMON NORMALS: normocephalic and atraumatic HEAD & SCALP: normocephalic and atraumatic Resp: COMMON NORMALS: clear to auscultation bilaterally AUSCULTATION: clear to auscultation bilaterally Cardio: COMMON NORMALS: regular rate, regular rhythm, S1 normal heart sound present, S2 normal heart sound present, No gallops present (Cardio), No murmurs present (Cardio), No rub (Cardio) and Peripheral pulses 2+ throughout RATE: regular rate RHYTHM: regular rhythm HEART SOUNDS: S1 normal heart sound present and S2 normal heart sound present PERIPHERAL PULSES: Peripheral pulses 2+ throughout GI: COMMON NORMALS: Normal to inspection, nondistended, normoactive bowel sounds present, Soft to palpation, non-tender, No hepatosplenomegaly present and no masses AUSCULTATION: Yes normoactive bowel sounds PALPATION: Yes Soft to palpation and Yes No hepatosplenomegaly present RECTAL EXAM: deferred Extremity: COMMON NORMALS: no clubbing, cyanosis or edema and no pedal edema Neuro: COMMON NORMALS: patient oriented x3 Discharge Data Data Completed and Pending: Completed Studies During Hospitalization Category Date Time Status CT abdomen pelvis w con* [id number] Urge nt Cat Scan 02/24/21 12:[address] head wo con* [id number] Urgent Cat Scan 02/24/21 12:44 Completed XR shoulder RT mi n 2V* [id number] Urgent Exams 02/24/21 12:44 Completed Pending at discharge Category Date Time Status Basic Metabolic P valencia AM LABS Lab 02/27/21 04:00 Ordered Blood Culture Sta t Lab 02/24/21 19:32 Results Complete Blood Co unt w/Auto AM LABS Lab 02/27/21 04:00 Ordered Magnesium AM LABS Lab 02/27/21 04:00 Ordered Phosphorus AM LAB S Lab 02/27/21 04:00 Ordered Labs from last 24 hours 02/26/21 02/26/21 02/26/21 06:32 03:49 03:49 WBC 5.8 RBC 3.79 L Hgb 11.4 L Hct 34.3 L MCV 90.5 MCH 30.1 MCHC 33.2 RDW 12.2 Plt Count 157 MPV 11.1 H Neut % (Auto) 44.0 Lymph % (Auto) 42.4 Trigg % (Auto) 11.0 Eos % (Auto) 2.1 Baso % (Auto) 0.3 Neut # (Auto) 2.53 Lymph # (Auto) 2.4 Trigg # (Auto) 0.6 Eos # (Auto) 0.1 Baso # (Auto) 0.0 Nucleated RBC % (a uto) 0 Nucleated RBCs # 0.0 Sodium 138 Potassium 3.6 Chloride 105 Carbon Dioxide 23 Anion Gap 13.6 BUN 17 Creatinine 0.7 GFR Calculation Not Reportable Glucose 108 POC Glucose 111 H Calculated Osmolal ity 288 Calcium 8.5 Phosphorus 2.9 Magnesium 1.7 02/25/21 02/25/21 20:03 16:52 WBC RBC Hgb Hct MCV MCH MCHC RDW Plt Count MPV Neut % (Auto) Lymph % (Auto) Trigg % (Auto) Eos % (Auto) Baso % (Auto) Neut # (Auto) Lymph # (Auto) Trigg # (Auto) Eos # (Auto) Baso # (Auto) Nucleated RBC % (a uto) Nucleated RBCs # Sodium Potassium Chloride Carbon Dioxide Anion Gap BUN Creatinine GFR Calculation Glucose POC Glucose 164 H 198 H Calculated Osmolal ity Calcium Phosphorus Magnesium Vitals: Last Vital Signs Temp 97.6 F 02/26/21 10:38 Pulse 67 02/26/21 10:38 Resp 18 02/26/21 10:38 BP 126/57 02/26/21 10:38 Pulse Ox 93 02/26/21 10:38 Discharge Plan Discharge Patient Disposition: Home Condition: Stable Prescriptions: New losartan 50 mg Tablet 50 mg PO Q12H 30 Days Qty: 60 RF: 3 hydralazine 50 mg Tablet 25 mg PO TID 30 Days Qty: 45 RF: 3 Continued isosorbide mononitrate 120 mg tablet extended release 24 hr 120 mg PO DAILY@08 RF: 0 brimonidine 0.2 % drops 1 drop ophthalmic (eye) BID@ RF: 0 atorvastatin 20 mg tablet 20 mg PO DAILY@08 RF: 0 PreserVision AREDS [id number] capsule 1 cap PO DAILY@08 RF: 0 timolol maleate 0.5 % drops 1 drop ophthalmic (eye) BID@ RF: 0 latanoprost 0.005 % drops 1 drp ophthalmic (eye) DAILY@22 RF: 0 furosemide 20 mg tablet 20 mg PO DAILY@08 RF: 0 oxybutynin chloride 10 mg tablet extended release 24hr 10 mg PO DAILY@08 RF: 0 pantoprazole 40 mg Tablet,Delayed Release (Dr/Ec) 40 mg PO DAILY@08 RF: 0 Vitamin D3 25 mcg (1,000 unit) Capsule 25 mcg PO DAILY RF: 0 Discontinued losartan 100 mg tablet 100 mg PO DAILY@08 RF: 0 hydralazine 50 mg tablet 50 mg PO BID RF: 0 Discharge Orders: Discharge Order (Routine); Ordered 02/26/21 Ordered By: Hollis Estrella Referrals: [facility] [Outside] Mely Combs MD [Primary Care Provider] - 1 month (Please keep your appointment with Dr. Combs on Mar 19 at 9:45A.M. If you have any questions or need to reschedule. Please call ) Kesha Toribio MD [Physician] - 1 month (Please follow-up with Dr. Toribio on at 10:30A.M. If you have any questions or need to reschedule. Please call ) Discharge Diet: Regular Discharge Activity: Resume usual activity Patient Instructions: Syncope in Older Adults (DC) Activity Restrictions/Additional Instructions: Please check your BP in the morning, afternoon and evening. Keep a log of your BP and heart rate at home so you can bring the record to your next doctor's appointments. If your BP is low below 100 upper number, please hold your Isosorbide mononitrate or Imdur. If your BP is high above 160 on the upper #, you can take your Isosorbide mononitrate or Imdur. If you have any worsening of symptoms or concerns at home, please call your doctor or come to E.R. Discharge Attestations Time Spent in Discharge Care*: less than 30 min Specific Discharge Activities: educating patient, educating and/or supporting family/caregiver, discussing with pcp/other providers, discussing with briefcase sewer/social workers/dc planners, documenting/other paperwork and evaluating patient/reviewing data Status at Discharge: Cognitive status at discharge: cognitively intact, Behavioral status at discharge: cooperative, Functional status at discharge: independent ambulation Overall status at discharge: patient is back to baseline Quality Metrics Clinical Quality Measures During this hospital stay, did patient experience: None Coding Level of Care Code Acute Chg FW DC note Exam Detailed Diagnoses Syncope R55 Aortic valve sclerosis I35.8 Chronic diastolic heart failure I50.32 Benign essential hypertension I10 Mixed hyperlipidemia E78.2 Urgency incontinence N39.41 Nonrheumatic mitral valve regurgitation I34.0
--- NOTE | 2021-02-26 14:45 | PC.NURSE ---
Discharge Note Patient discharged to home w/home health services via wheelchair accompanied by daughter. Discharge instructions reviewed with patient and/or sales representative electric service. Mobile pharmacy medications and/or prescriptions provided. Belongings/home medications returned.
== END 2021-02-26 15:10 | disposition home or self-care (01) ==
LOC: ER 13:21 → CSU 18:01
PROVIDERS: Admitting Provider Family Medicine; Emergency Provider Emergency Medicine; PCP Internal Medicine; Visit Provider Internal Medicine
DX: R55 Syncope and collapse (principal); I35.8 Other nonrheumatic aortic valve disorders; I50.32 Chronic diastolic (congestive) heart failure; I11.0 Hypertensive heart disease with heart failure; E78.2 Mixed hyperlipidemia; N39.41 Urge incontinence; I34.0 Nonrheumatic mitral (valve) insufficiency
CPT/HCPCS: 36415; 36416; 70450; 73030; 74177; 80048; 81003; 82962; 83036; 83735; 83880; 84100; 84443; 84484; 85025; 87040; 87086; 96360; 96372; 99285; G0378; J1644; J7030; Q9967

== ENCOUNTER 2021-07-01 14:37 | Outpatient (CLI) | payer MEDICARE, SELFPAY ==
--- NOTE | 2021-07-01 14:47 | XR_ITS ---
WS: [id number] Left wrist, 3 views, 07/01/2021 Clinical Data: L WRIST PAIN Comparison: None. Findings: No new fractures or dislocations are seen. The carpal bones are intact. There is no soft tissue swell ing. The distal radius and ulna are not remarkable. There is a faint line across the waist of the scaphoid which could represent an old fracture. There i s calcification of the triradiate cartilage. XR/XR wrist LT min 3V* [id number] Impression: Negative for new left wrist fracture.
== END 2021-07-01 14:38 | disposition home or self-care (01) ==
PROVIDERS: PCP Internal Medicine; Visit Provider Nurse Practitioner Family
DX: M25.532 Pain in left wrist (principal)
CPT/HCPCS: 73110

== ENCOUNTER 2021-07-09 09:11 | Outpatient (CLI) | payer MEDICARE, SELFPAY ==
--- NOTE | 2021-07-09 09:38 | MR_ITS ---
WS: [id number] MRI BRAIN WITH AND WITHOUT CONTRAST HISTORY: TIA COMPARISON: None available. TECHNIQUE: Multiplanar imaging performed through the brain with ProHance 16 ml's IV. No acute infarcts are seen. Hicks-white matter differentiation is well preserved. Moderate T2 and FLAI R signal hyperintensities from chronic white matter ischemic disease. Very similar to the prior study with no obvious progression. Increased T2 signal in the shaista bilaterally but greatest on the RIGHT. No intracranial hemorrhage. No susceptibility artifacts or prior lacunar infarcts. Ventricles and extra-axial spaces are mildly prominent on the basis of atrophy but similar to the magui or examination. Clivus and pituitary gland are normal. Visualized posterior fossa and brainstem are also normal. Postcontrast images are negative for masses or vascular malformations. Dural venous sinuses are normal. Paranasal sinuses: Well aerated with no significant disease. Mastoid air cells: Normal. Calvarium and scalp: Normal. MR/MR head wo/w con [id number] IMPRESSION: 1. No acute infarct or enhancing mass. 2. Moderate small vessel ischemic changes and atrophy. Similar to the study [facility] 01/18/2020. 3. No intracranial hemorrhage.
== END 2021-07-09 09:12 | disposition home or self-care (01) ==
LOC: RAD 09:12
PROVIDERS: PCP Internal Medicine; Visit Provider Internal Medicine
DX: Z86.73 Personal history of transient ischemic attack (TIA), and cerebral infarction without residual deficits (principal)
CPT/HCPCS: 70553

== ENCOUNTER 2021-09-02 16:21 | Outpatient (CLI) | payer MEDICARE, SELFPAY ==
--- NOTE | 2021-09-02 16:42 | XR_ITS ---
WS: [email or web address] XR lumbar spine min 4V [id number] REASON FOR EXAM: CHRONIC BACK PAIN FINDINGS: Rotatory scoliosis convex right. The lumbar spine is unchanged compared to 05/08/2016. There are no significant compression deformities or focal vertebral body lesions. Narrowing of all lumbar intervertebral disc spaces most severely L1-L4 and L5-S1. No spondylolisthesis or spondylolysis. Degenerative change in the facet joints L3-S1. XR/XR lumbar spine min 4V [id number] IMPRESSION: Stable degenerative spondylosis the lumbar spine as above.
== END 2021-09-02 16:22 | disposition home or self-care (01) ==
PROVIDERS: PCP Internal Medicine; Visit Provider Internal Medicine
DX: M54.9 Dorsalgia, unspecified (principal); M47.897 Other spondylosis, lumbosacral region
CPT/HCPCS: 72110

== ENCOUNTER → 2021-10-01 09:57 | Outpatient (BNVA) | payer MEDICARE, SELFPAY | PROVIDERS: PCP Internal Medicine; Visit Provider Internal Medicine Cardiovascular Disease | DX: I11.0 Hypertensive heart disease with heart failure (principal); I50.32 Chronic diastolic (congestive) heart failure; R55 Syncope and collapse; I34.0 Nonrheumatic mitral (valve) insufficiency; I35.8 Other nonrheumatic aortic valve disorders | CPT/HCPCS: 99214 ==

== ENCOUNTER 2022-02-13 08:13 | Outpatient (CLI) | payer MEDICARE, SELFPAY ==
--- NOTE | 2022-02-13 08:37 | MR_ITS ---
WS: [id number] MRI LUMBAR SPINE NONCONTRAST TECHNIQUE: Sagittal T1, T2 and STIR imaging. Axial T1 and T2 imaging. CLINICAL INFORMATION: CHRONIC BACK PAIN COMPARISON: None. FINDINGS: Endplate edema at T12-L1 with small amount of T2 signal normality in the disc space. Mild compression superior endplate L1 is suspicious for recent mild compression. Schmorl's nodes in the T12 inferior endplate with edema. These findings are new since CT abdomen pelvis CT February 24, 2021. Edema exten ding into the pedicles and dorsal periarticular soft tissues likely due to degenerative change or syn ovitis. Disc space narrowing at this level significant progressed since 2017 findings likely degenera tive. Discitis is an additional less likely consideration. Mild lumbar curve. No acute compression. Slight retrolisthesis L2 on L3. Disc space narrowing worse a t L1-L2 and L2-L3. Mild to moderate central canal stenosis cervical spine automotive generator repairer imaging at C5-C6 and C6-C7. Mild central canal stenosis C3-C4. Small disc protrusions in the upper thoracic spine partiall y visualized. T12-L1: Mild disc bulging with slight effacement of ventral thecal sac. Mild central canal stenosis. Moderate facet arthropathy. Mild bilateral bony foraminal narrowing RIGHT greater than LEFT. L1-L2: Mild disc bulging with mild central canal stenosis. Impingement LEFT subarticular recess. Mode rate facet arthropathy. Mild LEFT greater than RIGHT foraminal narrowing. L2-L3: Mild disc bulging with osteophytic ridging. Narrowing subarticular recess bilaterally. Moderat e facet arthropathy. Mild RIGHT greater than LEFT foraminal narrowing. L3-L4: Mild disc bulging and osteophytic ridging. Mild central canal stenosis. Impingement on the tra versing LEFT L4 nerve root. Mild LEFT L3-L4 foraminal narrowing. L4-L5: Mild disc bulging and osteophytic ridging. Mild central canal stenosis. Impingement traversing L5 nerve roots bilaterally. Mild LEFT foraminal narrowing. Moderate facet arthropathy with ligamentu m flavum hypertrophy. L5-S1: Slight anterolisthesis. Mild disc osteophyte complex with slight impingement on traversing LEF T S1 nerve root. Advanced RIGHT facet arthropathy. Moderate to severe RIGHT foraminal narrowing with impingement on the exiting RIGHT L5 nerve root. LEFT foramen is patent. Multicystic RIGHT kidney partially visualized. Visualized pelvic bony structures: Normal. Paravertebral soft tissues: Normal. MR/MR lumbar spine wo con* [id number] IMPRESSION: 1. Lumbar scoliosis convex RIGHT. 2. Edema within the inferior T12 and superior L1 vertebral bodies with mild co mpression superior endplate L1 is suspicious for recent acute to subacute compr ession. This is new since CT abdomen pelvis February 24, 2021. 3. Additional edema in the T12-L1 pedicles extending into the posterior periar ticular soft tissues likely degenerative or synovitis. Disc space narrowing at this level significant progressed since 2017 findings likely degenerative. Disc itis is an additional less likely consideration. Recommend correlation for infe ction.Small amount of soft tissue edema at this level. 4. Mild central canal stenosis throughout the lumbar spine L1-L2, L2-L3 L3-L4 L4-L5. 5. Narrowing of the subarticular recess at multiple levels worse at LEFT L2-L3 , LEFT L3-L4, LEFT L4-L5 and LEFT L5-S1. 6. Moderate to severe RIGHT L5-S1 foraminal narrowing with impingement on the exiting RIGHT L5 nerve root. 7. Moderate to advanced facet arthropathy L4-L5 and RIGHT L5-S1. 8. Mild to moderate central canal stenosis in the cervical spine on automotive generator repairer imag ing described above.
== END 2022-02-13 08:14 | disposition home or self-care (01) ==
PROVIDERS: PCP Internal Medicine; Visit Provider Internal Medicine
DX: M54.9 Dorsalgia, unspecified (principal)
CPT/HCPCS: 72148

== ENCOUNTER 2022-02-25 10:59 | Observation (INO) | payer MEDICARE, SELFPAY ==
[2022-02-25] VITALS (84 sets, daily range): BP systolic 139–206; BP diastolic 59–94; PULSE 37–68; RESP 12–29; TEMP 36.8; O2SAT 92–97; BMI 30.9; BMI 34.2; BMI 31.3
--- NOTE | 2022-02-25 11:15 | ECG_ITS ---
[facility] Test Date: 2022-02-25 Pat Name: Marsha Pantoja Department: Room: 103 Gender: Female Loan Operations Specialist: : [id number] Requested By: Harinder Watson Order Number: [id number] Ena MD: Clarke Kirkpatrick M.D. Measurements Intervals [place] Rate: 39 P: 0 OR: 0 QRS: -56 QRSD: 140 T: 76 QT: 518 QTc: 421 Interpretive Statements COMPLETE HEART BLOCK Compared to ECG 07/06/2020 22:59:34 Idioventricular rhythm now present Sinus rhythm no longer present Electronically Signed On 02-25-2022 17:54:31 COMMUNITY MENTAL HEALTH WORKER by Clarke Kirkpatrick M.D. [email or web address]
--- NOTE | 2022-02-25 11:29 | XR_ITS ---
WS: [email or web address] Exam: XR chest 1V portable [id number] Date/Time of Exam: 02/25/2022 11:39 AM Reason For Exam: CHB Comparison 07/06/2020. The lungs are clear and fully expanded. Normal cardiomediastinal silhouette for technique. No pleural effusions. Regional bony elements are intact. Levoscoliosis of the T-spine. XR/XR chest 1V portable [id number] IMPRESSION: 1. No acute cardiopulmonary process.
--- NOTE | 2022-02-25 11:40 | CT_ITS ---
WS: [id number] CT ABDOMEN AND PELVIS NONCONTRAST HISTORY: 3-4 weeks abd pain TECHNIQUE: Imaging performed through the abdomen and pelvis. Coronal and sagittal reformats are submi tted. All CT scans at [facility] use at least one of these dose optimization techniques: auto mated exposure control; mA and/or kV adjustment per patient size (includes targeted exams where dose is matched to clinical indication); or iterative reconstruction. DLP: 848.08 mGy.cm COMPARISON: 02/24/2021 Lower thorax: Mild dependent changes at the lung bases. Small amount pleural thickening. Marked enlar gement of the heart. Small hiatal hernia. Liver: Coarse echotexture throughout the liver. Very limited evaluation of the liver without IV contr ast. Gallbladder: Normal gallbladder. Pancreas: Mild atrophy. Previously described cyst is not evident without contrast. Spleen: Normal. Adrenal glands: Normal. No mass. Right kidney: Mild perinephric stranding. Cortical thinning and atrophy. No obstruction. 10 mm hypode nse mass lower pole probably a hemorrhagic cyst. Left kidney: Marked perinephric stranding with cortical thinning and atrophy. Numerous cortical nodul es of variable density. Aorta: Mild atherosclerosis abdominal aorta with no aneurysm. Small amount of free fluid in the pelvis. No adenopathy or free air. GI tract: Nondistended stomach. No small bowel obstruction. Mild diffuse constipation. Appendix is no t definitely visualized. Tortuous overlapping loops of distal colon with numerous diverticula. No acu te diverticulitis. There may be mild rectal prolapse. The distal colon is very low lying. Tiny amount of free fluid in the pelvis. Abdominal wall: Small umbilical hernia contains fat only. Pelvis: Prior hysterectomy. Osseous structures: Osteopenia. Lytic area T12 vertebral body. Schmorl's node. No associated soft tis aisha mass. CT/CT abdomen pelvis wo con [id number] IMPRESSION: 1. Mild heterogeneous appearance of the liver. Otherwise very limited evaluati on without IV contrast. 2. Marked cardiomegaly. 3. Very small amount of free fluid in the pelvis. 4. Marked perinephric stranding around each kidney with no renal obstruction. Correlate with possible urinary tract infection. There are additional bilateral cortical masses of variable density which cannot be further characterized with out IV contrast. 5. No GI tract obstruction.
--- NOTE | 2022-02-25 11:42 | ED_ITS ---
HPI - Abdominal Pain General: Chief Complaint: Abdominal Pain Stated Complaint: ABDOMINAL PAIN Time Seen by Provider: 02/25/22 11:18 Source: patient Mode of arrival: EMS Limitations: no limitations History of Present Illness: This patient was transported to the emergency department from her home by EMS. She is here for a couple of different reasons. The primary precipitating reason today was that she has felt extremely weak since yesterday. She states that when she walks around her house she feels somewhat lightheaded and unstable. She denies any associated chest pain or shortness of breath. She states that she is not been exposed to any illness that she is aware of. She is not had fever sore throat cough etc. She also has been having approximate 3 to 4 weeks of intermittent abdominal pains with change in bowel habits. This is not depended upon her eating habits or other extraneous factors. She denies any blood in her stools or black tarry stools. She does state her stools have been harder than normal. 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 She states that she takes metoprolol in addition to her other medications as wel l as a beta-marta for glaucoma. She states she is taking all his medications today. She denies any dysuria frequency etc. She had a prior hysterectomy to ga but no other abdominal surgeries. No weight loss. No recent illness. Pain Consistency: intermittent Quality: cramping Exacerbating factors: nothing Relieving factors: nothing Associated Symptoms: Reports change in bowel habits and constipation; Denies chills, diarrhea, dysuria, fever(s), hematochezia, melena, nausea and vomiting Review of Systems Const: Denies: fever(s) or chills Eyes: Denies: change in vision ENMT: Denies: throat pain, odynophagia, nasal discharge or nasal congestion Card: Reports: lightheadedness and pre-syncope; Denies: chest pain or palpitations Resp: Denies: dyspnea, productive cough or non-productive cough GI: Reports: abdominal pain, constipation and change in bowel habits; Denies: nausea, vomiting, diarrhea, hematochezia or melena : Denies: flank pain, difficulty voiding, dysuria or urinary frequency Musc: Denies: neck pain, back pain, extremity pain or extremity swelling Skin/Breast: Denies: rash Neuro: Denies: headache(s), numbness in extremities, weakness in extremities, difficulty walking, vertigo or confusion Psych: Denies: anxiety Endo: Denies: polyuria, polydipsia or tired all the time PFSH ED PFSH: Medical History Abdominal pain Aortic valve sclerosis Benign essential hypertension Chronic diastolic heart failure Fall Feeling light headed Glaucoma Mixed hyperlipidemia Nonrheumatic mitral valve regurgitation Rectocele 02/07/2019: Patient reports a bulge at the vaginal opening that has been present for at least 6 weeks. On exam, she was noted to have a first-degree vault prolapse, first-degree cystocele, and second to third-degree rectocele. Patient decided to follow for now. Syncope Urgency incontinence Surgical History History of hysterectomy (~1976) KAROLINE, (unsure if has ovaries). Performed at [facility] in [place], [place] History of tubal ligation Hx of bilateral cataract extraction Status post colonoscopy Family History Grandmother Diabetes Maternal Mother Heart disease Father Heart disease Daughter Heart disease Stroke Sister Heart disease Stroke Colon cancer Brother Hypertension Denies family history of Anesthesia complication Bleeding disorder Social History Smoking and tobacco status: never smoked Alcohol intake: never Additional social history: Well balanced diet Physical Exam Narrative: EXAM NARRATIVE: She appears to be in no acute distress. She makes good eye contact and speech is goal-directed. She requires the examiner to speak in a loud voice due to her presbycusis. Const: COMMON NORMALS: no acute distress and patient oriented x3 GENERAL APPEARANCE: cooperative and comfortable NUTRITIONAL APPEARANCE: overweight HENMT: COMMON NORMALS: normocephalic, Normal nasal mucous membranes and turbinates present, moist oral mucous membranes and oropharynx normal HEAD & SCALP: normocephalic NOSE: Normal nasal mucous membranes and turbinates present Eye: COMMON NORMALS: Equal, round and reactive pupils present, EOMs intact bilaterally and conjunctivae normal CONJUNCTIVA: Yes conjunctivae normal PUPIL: Yes Equal, round and reactive pupils present Neck/C-Spine: COMMON NORMALS: full ROM, no JVD, Thyroid normal and No carotid bruits THYROID: Thyroid normal Chest: COMMONS NORMALS: normal inspection of the chest Resp: COMMON NORMALS: normal respiratory effort, No use of accessory muscles, clear to auscultation bilaterally and percussion normal AUSCULTATION: clear to auscultation bilaterally PERCUSSION: percussion normal Cardio: COMMON NORMALS: no JVD, regular rhythm, No murmurs present (Cardio) and Peripheral pulses 2+ throughout RATE: bradycardic RHYTHM: regular rhythm PERIPHERAL PULSES: Peripheral pulses 2+ throughout GI: COMMON NORMALS: Normal to inspection, nondistended, normoactive bowel sounds present, no masses and no bruits PALPATION: Yes Tenderness to palpation present (GI) (Epigastric) : COMMON NORMALS: Yes no CVA tenderness BLADDER/KIDNEY EXAM: Yes no CVA tenderness Back/Pelvis: COMMON NORMALS: no CVA tenderness, thoracic and lumbar spine normal to inspection, no thoracic nor lumbar tenderness, thoraco-lumbar ROM normal and straight leg raise negative bilaterally Extremity: COMMON NORMALS: normal to inspection, full ROM, capillary refill normal, no calf tenderness and no pedal edema Neuro: COMMON NORMALS: patient oriented x3, moves all extremities, no focal motor deficits and no sensory deficits noted CRANIAL NERVES: Yes CN normal except as noted SPEECH: speech normal Skin: COMMON NORMALS: no rashes or lesions noted and turgor normal GENERAL SKIN EXAM: no rashes or lesions noted and turgor normal Course Reevaluation(s): Reevaluation #1: Remained stable however still remains bradycardic in the 30s. Symptomatic at this time. Time: 13:56 Consultations: Consultation #1: Discussed with Dr. Hidalgo. She will consult at the time of admission. Consultation #2: Discussed with attending hospitalist who agreed to admit patient. Time: 14:44 Vital Signs: Vital signs: Vital Signs Temperature 98.3 F 02/25/22 11:02 Pulse Rate 38 L 02/25/22 14:30 Respiratory Rate 17 02/25/22 14:30 Blood Pressure 190/65 02/25/22 14:30 Pulse Oximetry 94 02/25/22 14:30 Oxygen Delivery Me thod 02/25/22 11:02 MDM - Abdominal Pain Medical Decision Making Patient presented to our emergency department because of global weakness over the last 2 days. She is also had approximately 1 month of abdominal pain which has been nonlimiting in terms of she has been eating and drinking normally no food relationship. No vomiting or diarrhea etc. Some mild dysuria symptoms. Her work-up today reveals a bradycardia with narrow complex QRS with some disassociation of P waves suggestive of bradycardia likely related to medication but certainly possible of related to complete heart block. Other findings are nonspecific with a mild elevation in transaminases, bacteriuria without any significant pyuria as well as CT scan which did not show signs of obstruction or other surgical condition at this time. The patient will need to be admitted to an observation status to observe off beta-blockers ensure her heart rate recovers or in fact whether she needs intervention such as a pacemaker etc. Medical Records I reviewed the patient's medical records. Lab Data I reviewed the patient's lab results. 02/25/22 11:38 02/25/22 11:38 Labs/Radiology: Radiology Impressions Chest X-Ray 02/25/22 11:29 IMPRESSION: 1. No acute cardiopulmonary process. Abdomen/Pelvis CT 02/25/22 11:40 IMPRESSION: 1. Mild heterogeneous appearance of the liver. Otherwise very limited evaluation without IV contrast. 2. Marked cardiomegaly. 3. Very small amount of free fluid in the pelvis. 4. Marked perinephric stranding around each kidney with no renal obstruction. Correlate with possible urinary tract infection. There are additional bilateral cortical masses of variable density which cannot be further characterized without IV contrast. 5. No GI tract obstruction. Laboratory Results WBC 8.9 10^3/uL (4.0-10.0) 02/25/22 11:38 RBC 4.13 10^6/uL (4.1-5.3) 02/25/22 11:38 Hgb 12.4 g/dL (11.5-15.3) 02/25/22 11:38 Hct 38.3 % (37.0-47.0) 02/25/22 11:38 MCV 92.7 fl (81-99) 02/25/22 11:38 MCH 30.0 pg (28.0-34.0) 02/25/22 11:38 MCHC 32.4 g/dL (30.0-36.0) 02/25/22 11:38 RDW 12.8 % (12.1-15.1) 02/25/22 11:38 Plt Count 211 10^3/cmm (130-400) 02/25/22 11:38 MPV 11.7 fL (7.4-10.4) H 02/25/22 11:38 Neut % (Auto) 64.7 % 02/25/22 11:38 Lymph % (Auto) 24.3 % 02/25/22 11:38 [place] % (Auto) 10.3 % 02/25/22 11:38 Eos % (Auto) 0.2 % 02/25/22 11:38 Baso % (Auto) 0.3 % 02/25/22 11:38 Neut # (Auto) 5.77 10^3/uL (1.8-7.7) 02/25/22 11:38 Lymph # (Auto) 2.2 10^3/uL (0.8-4.8) 02/25/22 11:38 [place] # (Auto) 0.9 10^3/uL (0.2-0.9) 02/25/22 11:38 Eos # (Auto) 0.0 10^3/uL (0.0-0.8) 02/25/22 11:38 Baso # (Auto) 0.0 10^3/uL (0.0-0.1) 02/25/22 11:38 Nucleated RBC % (auto) 0 % 02/25/22 11:38 Nucleated RBCs # 0.0 /100WBC 02/25/22 11:38 Sodium 131 mmol/L (136-145) L 02/25/22 11:38 Potassium 3.8 mmol/L (3.5-5.1) 02/25/22 11:38 Chloride 97 mmol/L (98-107) L 02/25/22 11:38 Carbon Dioxide 23 mmol/L (22-29) 02/25/22 11:38 Anion Gap 14.8 (5-19) 02/25/22 11:38 BUN 29 mg/dL (8-23) H 02/25/22 11:38 Creatinine 0.9 mg/dL (0.5-0.9) 02/25/22 11:38 GFR Calculation Not Reportable 02/25/22 11:38 Glucose 137 mg/dL (65-115) H 02/25/22 11:38 Calculated Osmolality 280 mOsm/kg (285-295) L 02/25/22 11:38 Calcium 9.4 mg/dL (8.5-10.5) 02/25/22 11:38 Total Bilirubin 0.7 mg/dL (0.15-1.2) 02/25/22 11:38 AST 34 U/L (0-32) H 02/25/22 11:38 ALT 40 U/L (0-33) H 02/25/22 11:38 Alkaline Phosphatase 91 U/L (35-105) 02/25/22 11:38 Troponin T Gen 5 ng/L 47 ng/L (0-10) H 02/25/22 11:38 Total Protein 6.6 g/dL (6.6-8.7) 02/25/22 11:38 Albumin 3.9 g/dL (3.5-5.2) 02/25/22 11:38 Globulin 2.7 g/dL (1.3-4.6) 02/25/22 11:38 TSH 2.37 uIU/mL (0.27-4.20) 02/25/22 11:38 Urine Color Yellow (Yellow) 02/25/22 11:55 Urine Appearance Clear (CLEAR) 02/25/22 11:55 Urine pH 6 (5-7) 02/25/22 11:55 Ur Specific Stanley 1.015 (1.005-1.030) 02/25/22 11:55 Urine Protein 1+ (Negative) H 02/25/22 11:55 Urine Glucose (UA) Norm (Normal) 02/25/22 11:55 Urine Ketones Negative (Negative) 02/25/22 11:55 Urine Blood Neg (Negative) 02/25/22 11:55 Urine Nitrate Negative (Negative) 02/25/22 11:55 Urine Bilirubin Neg (Negative) 02/25/22 11:55 Urine Urobilinogen Norm mg/dL (Negative) 02/25/22 11:55 Ur Leukocyte Esterase Negative (Negative) 02/25/22 11:55 Urine RBC None /hpf (0-2) 02/25/22 11:55 Urine WBC 0-4 /hpf (0-5) H 02/25/22 11:55 Ur Squamous Epith Cells 10-15 /hpf (0-5) H 02/25/22 11:55 Amorphous Sediment Not Reportable 02/25/22 11:55 Urine Bacteria 4+ /hpf (NONE) H 02/25/22 11:55 EKG Data EKG 1: I personally reviewed and interpreted this EKG as follows: Interpretation: Resting EKG reveals a ventricular rate of 39 bpm. MD interval is indeterminate. Narrow complex QRS at 140 ms. Her QTC is normal at 445 ms. She has a leftward axis of the QRS. No acute ST-T wave changes noted. Discharge Plan Discharge Patient Disposition: Placed in Observation Clinical Impression: Bradycardia with 31-40 beats per minute Condition: Stable Prescriptions: No Action brimonidine 0.2 % drops 1 drop ophthalmic (eye) BID@ atorvastatin 20 mg tablet 20 mg PO DAILY@08 PreserVision AREDS [id number] capsule 1 cap PO DAILY@08 timolol maleate 0.5 % drops 1 drop ophthalmic (eye) BID@ Rx Instructions: both eyes isosorbide mononitrate 120 mg tablet extended release 24 hr 120 mg PO DAILY@08 PRN (Reason: Blood Pressure) Rx Instructions: Do not take unless systolic drops below 100 per hospitalist metoprolol tartrate 25 mg tablet 25 mg PO BID Qty: 180 3RF furosemide 20 mg tablet 20 mg PO DAILY@08 oxybutynin chloride 10 mg tablet extended release 24hr 10 mg PO DAILY@08 pantoprazole 40 mg Tablet,Delayed Release (Dr/Ec) 40 mg PO DAILY@08 cholecalciferol (vitamin D3) [Vitamin D3] 25 mcg (1,000 unit) Capsule 25 mcg PO DAILY losartan 50 mg Tablet 50 mg PO Q12H 30 Days Qty: 60 3RF Rocklatan 0.02-0.005 % drops 1 drp ophthalmic (eye) BEDTIME hydralazine 50 mg tablet 25 mg PO Q8H Referrals: Mely Combs MD [Primary Care Provider] - Coding Level of Care Code ED Waiter/Waitress Second Class for Chg Fwd Exam Comprehensive
[2022-02-25 11:45] LABS: Basophils % 0.3 %; Eosinophils % 0.2 %; Hematocrit 38.3 % (37.0-47.0); Hemoglobin 12.4 g/dL (11.5-15.3); Lymphocytes # 2.2 10^3/uL (0.8-4.8); Lymphocytes % 24.3 %; Mean Corpuscular HGB Conc 32.4 g/dL (30.0-36.0); Mean Corpuscular Volume 92.7 fl (81-99); Mean Platelet Volume 11.7 fL (7.4-10.4); Monocytes # 0.9 10^3/uL (0.2-0.9); Monocytes % 10.3 %; Neutrophils # 5.77 10^3/uL (1.8-7.7); Neutrophils % 64.7 %; Nucleated Red Blood Cells % 0 %; Platelet Count 211 10^3/cmm (130-400); Red Blood Count 4.13 10^6/uL (4.1-5.3); Red Cell Distribution Width 12.8 % (12.1-15.1); White Blood Count 8.9 10^3/uL (4.0-10.0)
[2022-02-25 12:11] LABS: Alanine Aminotransferase 40 U/L (0-33); Albumin Level 3.9 g/dL (3.5-5.2); Alkaline Phosphatase 91 U/L (35-105); Anion Gap 14.8 (5-19); Aspartate Amino Transferase 34 U/L (0-32); Blood Urea Nitrogen 29 mg/dL (8-23); Calcium 9.4 mg/dL (8.5-10.5); Carbon Dioxide 23 mmol/L (22-29); Chloride 97 mmol/L (98-107); Globulin 2.7 g/dL (1.3-4.6); Glucose 137 mg/dL (65-115); Osmolality Calculated 280 mOsm/kg (285-295); Potassium 3.8 mmol/L (3.5-5.1); Sodium 131 mmol/L (136-145); Thyroid Stimulating Hormone 2.37 uIU/mL (0.27-4.20); Total Bilirubin 0.7 mg/dL (0.15-1.2); Total Protein 6.6 g/dL (6.6-8.7)
[2022-02-25 12:12] LABS: Add Urine Microscopic? YES; Bilirubin Urine Neg (Negative); Blood Urine Neg (Negative); Glucose Urine UA Norm (Normal); Ketones Urine Negative (Negative); Leukocyte Esterase Urine Negative (Negative); Nitrate Urine Negative (Negative); Protein Urine 1+ (Negative); Specific Gravity, Urine 1.015 (1.005-1.030); Urine Appearance Clear (CLEAR); Urine Color Yellow (Yellow); Urobilinogen Urine Norm (Negative); pH Urine 6 (5-7)
[2022-02-25 12:22] LABS: WBC Urine 0-4 /hpf (0-5)
[2022-02-25 12:23] LABS: Add Urine Culture? Yes; Bacteria Urine 4+ /hpf
[2022-02-25 14:39] LABS: Troponin T (5th) Once 47 ng/L (0-10)
--- NOTE | 2022-02-25 15:44 | PC.NURSE ---
pt report taken by Karen BRIONES
--- NOTE | 2022-02-25 16:22 | PM.CONSULT ---
Providers/Reason For Consult Consulting Physician/Specialty*: Dr. Mayorga, Cardiology Reason for Consult*: Bradycardia Attending Physician: Francesco Garcia Primary Care Provider: Mely Combs MD History of Present Illness History of Present Illness Marsha Pantoja is a 86 year old female with PMHx of HFpEF, hypertension, history of syncope, history of mitral valve regurg, hyperlipidemia, history of bradycardia, history of nonsustained V. tach who was admitted last year with episode of syncope.? No significant arrhythmia was noted on event monitor. She usually sees Dr. Toribio. She was admitted with complaints of generalized fatigue and mild chest pressure. She also complains of intermittent abdominal pain. In ER she was found to have heart rate in mid to high 30s. EKG showed sinus rhythm with what appears to be complete heart block with junctional escape rhythm with heart rate at 39 bpm. Left axis deviation. Right bundle branch block. Prior EKG from July 06, 2020 showed sinus rhythm left axis deviation. Right bundle branch block. Voltage criteria for left ventricular hypertrophy. Repeat EKG seems to be sinus rhythm with complete heart block and isorhythmic A-V dissociation. Junctional escape rhythm at 38 bpm. Patient at this time is sitting comfortably in bed without any symptoms of chest discomfort shortness of breath and maintaining her blood pressure. Heart rate ranging from 39 to low 50s on telemetry. Patient took her home dose of metoprolol 25 mg this morning. Baseline fifth generation troponin at 47. Review of Systems Const: Denies: fever(s) or chills Eyes: Denies: change in vision ENMT: Denies: throat pain or nasal congestion Card: Reports: chest pain and lightheadedness; Denies: palpitations, syncope or pre-syncope Resp: Denies: dyspnea, productive cough or non-productive cough GI: Reports: abdominal pain, constipation and change in bowel habits; Denies: nausea, vomiting, diarrhea, hematochezia or melena : Denies: flank pain, difficulty voiding, dysuria or urinary frequency Musc: Reports: extremity swelling (R leg); Denies: neck pain, back pain or extremity pain Skin/Breast: Denies: rash Neuro: Denies: headache(s), numbness in extremities, weakness in extremities, difficulty walking, vertigo or confusion Psych: Denies: anxiety Endo: Denies: polyuria, polydipsia or tired all the time Medications/Allergies Home Medications Medication Instructions Recorded Confirmed Last Taken Type atorvastatin 20 mg tablet 20 mg PO DAILY@03/23/19 02/25/22 02/25/22 History brimonidine 0.2 % eye drops 1 drop ophthalmic (eye) BID@03/23/19 02/25/22 02/24/22 History timolol maleate 0.5 % eye drops 1 drop ophthalmic (eye) BID@03/23/19 02/25/22 02/24/22 History vitamins A,C,M-rxlw-kdcufg 14,320 1 cap PO DAILY@03/23/19 02/25/22 02/25/22 History unit-226 mg-200 unit capsule (PreserVision AREDS) furosemide 20 mg tablet 20 mg PO DAILY@02/28/20 02/25/22 02/25/22 History oxybutynin chloride 10 mg 10 mg PO DAILY@02/28/20 02/25/22 02/24/22 History tablet,extended release 24 hr pantoprazole 40 mg tablet,delayed 40 mg PO DAILY@07/06/20 02/25/22 02/24/22 History release cholecalciferol (vitamin D3) 25 25 mcg PO DAILY 02/24/21 02/25/22 02/25/22 History mcg (1,000 unit) capsule (Vitamin D3) losartan 50 mg tablet 50 mg PO Q12H 30 days #60 tabs 02/26/21 02/25/22 02/25/22 Rx isosorbide mononitrate 120 mg 120 mg PO DAILY@08 PRN Blood 10/01/21 02/25/22 Unknown History tablet,extended release 24 hr Pressure metoprolol tartrate 25 mg tablet 25 mg PO BID #180 tabs 10/21/21 02/25/22 02/25/22 Rx hydralazine 50 mg tablet 25 mg PO Q8H 02/25/22 02/25/22 02/25/22 History netarsudil 0.02 %-latanoprost 1 drp ophthalmic (eye) BEDTIME 02/25/22 02/25/22 02/24/22 History 0.005 % eye drops (Rocklatan) Allergies Allergy/AdvReac Type Severity Reaction Status Date / Time amlodipine Allergy Head feels Verified 10/01/21 07:21 funny, mental status change aspirin Allergy rash Verified 10/01/21 07:21 Penicillins Allergy rash Verified 10/01/21 07:21 PFSH Acute PFSH: Medical History (Updated 02/25/22 @ 18:20 by Beatrice Mayorga MD) Abdominal pain Aortic valve sclerosis Benign essential hypertension Chronic diastolic heart failure Complete heart block Fall Feeling light headed Glaucoma Mixed hyperlipidemia Nonrheumatic mitral valve regurgitation Rectocele 02/07/2019: Patient reports a bulge at the vaginal opening that has been present for at least 6 weeks. On exam, she was noted to have a first-degree vault prolapse, first-degree cystocele, and second to third-degree rectocele. Patient decided to follow for now. Syncope Urgency incontinence Surgical History History of hysterectomy (~1976) KAROLINE, (unsure if has ovaries). Performed at [facility] in [place], [place] History of tubal ligation Hx of bilateral cataract extraction Status post colonoscopy Family History Grandmother Diabetes Maternal Mother Heart disease Father Heart disease Daughter Heart disease Stroke Sister Heart disease Stroke Colon cancer Brother Hypertension Denies family history of Anesthesia complication Bleeding disorder Social History Smoking and tobacco status: never smoked Alcohol intake: never Additional social history: Well balanced diet Vitals/I&O/Wt Last Vital Signs Temp 98.3 F 02/25/22 11:02 Pulse 39 L 02/25/22 16:09 Resp 16 02/25/22 16:09 BP 175/64 02/25/22 16:09 Pulse Ox 95 02/25/22 16:09 O2 Del Method 02/25/22 11:02 Weight last 48 hrs Weight 175 lb Weight 153 lb Physical Exam Narrative: GENERAL: Obese woman sitting in bed in no acute distress HEENT: Extraocular movement intact. No pallor or icterus. NECK: central trachea, No JVD, No carotid bruit. CARDIOVASCULAR SYSTEM: S1-S2 regular. Bradycardia present. no murmur rubs or gallops. RESPIRATORY SYSTEM: Chest clear to auscultation. No wheezes rhonchi or rubs heard. No use of accessory muscles. ABDOMEN: Soft, nontender and nondistended. Normal bowel sounds present. EXTREMITIES: No cyanosis or clubbing. Trace R LE edema. No signs of chronic venous insufficiency. CARDIOVASCULAR SURGEON: Patient is alert oriented ?3. No focal neurological deficits. Hard of hearing. SKIN: Normal turgor and temperature. No breakdown, rash or nail changes noted. Data 02/25/22 11:38 02/25/22 11:38 Other data: CT abdomen/pelvis IMPRESSION: ? 1.? Mild heterogeneous appearance of the liver. Otherwise very limited evaluation without IV contrast. 2.? Marked cardiomegaly. 3.? Very small amount of free fluid in the pelvis. 4.? Marked perinephric stranding around each kidney with no renal obstruction. Correlate with possible urinary tract infection. There are additional bilateral cortical masses of variable density which cannot be further characterized without IV contrast. 5.? No GI tract obstruction. 04/01/21 Event Monitor 1.? The baseline rhythm was found to be normal sinus with an overall average heart rate of 71 bpm.? The above-mentioned symptom was not found to be associated with any significant arrhythmias.? Total of five episodes of nonsustained ventricular tachycardia of 6-8 beats, found to be asymptomatic. ?2.? No significant tacky or bradyarrhythmias.? No significant pauses. 3.? No previous similar studies, available for comparison Echo 05/24/19 Normal left ventricular size and systolic function, EF 66 %. ?Mild left ventricular hypertrophy. Grade I/IV diastolic ?dysfunction (abnormal relaxation filling pattern), normal to ?mildly elevated filling pressures. ?Thickened mitral valve. Trace mitral valve regurgitation. ?Features of aortic valve sclerosis. ?Mild pulmonary cannot tricuspid valve regurgitation. ?Estimated pulmonary artery peak systolic pressure 28 mmHg ?There is no pericardial effusion. ?There are no intracardiac masses. ?Compared to the study from 07/31/2018, the gradient across the ?aortic valve has? decreased A&P Assessment and plan (1) Bradycardia with 31-40 beats per minute: On review of EKG, it seems like patient is sinus rhythm with complete heart block and isorhythmic A-V dissociation. Junctional escape rhythm. -Continue to hold metoprolol. Patient was not on a very high dose of beta-marta. -Follow-up on echocardiogram. -We will keep patient n.p.o. for pacemaker implant tomorrow. -Low threshold for transcutaneous pacing if patient becomes symptomatic and temporary transvenous pacemaker placement. Patient is asymptomatic at this time. -I will defer further management to patient's primary shipfitter helper Dr. Toribio. (2) Complete heart block: (3) High-grade atrioventricular block: (4) Benign essential hypertension: (5) Chronic diastolic heart failure: Plan Mild transaminitis Concern for UTI with abnormal CT scan findings on kidney Hyperlipidemia History of nonsustained ventricular tachycardia History of syncope Mild hyponatremia Advanced age Thank you for allowing me to participate in patient's care. Please feel free to call with questions or concerns. Consult Attestations Time Spent in Patient Care: Greater than 35 minutes Coding Level of Care Code Acute Brakes Inspector for Chg Fwd Diagnoses Bradycardia with 31-40 beats per minute R00.1 Complete heart block I44.2 High-grade atrioventricular block I44.39 Benign essential hypertension I10 Chronic diastolic heart failure I50.32
--- NOTE | 2022-02-25 17:06 | ECG_ITS ---
[facility] Test Date: 2022-02-25 Pat Name: Marsha Pantoja Department: Room: 103 Gender: Female Cio: : 1935 Requested By: Beatrice Mayorga Order Number: [id number] Ena MD: Clarke Kirkpatrick M.D. Measurements Intervals [place] Rate: 38 P: 0 [place]: 0 QRS: -40 QRSD: 121 T: 19 QT: 498 QTc: 399 Interpretive Statements SINUS RHYTHM WITH HIGH GRADE AV BLOCK LEFT AXIS DEVIATION [QRS AXIS < -30] RIGHT BUNDLE BRANCH BLOCK [120+ ms QRS DURATION, UPRIGHT V1, 40+ ms S IN I/aVL/V4/V5/V6] VOLTAGE CRITERIA FOR LVH [MEETS CRITERIA IN ONE OF: R(aVL), S(V1), R(V5), R(V5/V6)+S(V1)] Compared to ECG 02/25/2022 11:15:00 Left-axis deviation now present Right bundle-branch block now present Left ventricular hypertrophy now present Idioventricular rhythm no longer present Electronically Signed On 02-25-2022 17:49:17 BACK END WEB DEVELOPER by Clarke Kirkpatrick M.D. [id number]
--- NOTE | 2022-02-25 17:09 | USCV_ITS ---
Marsha Pantoja Age: 86 Gender: F : 1935 Exam Date: 02/25/2022 21:11 Ordering Phys: Francesco Garcia MD Technologist: MANSOOR Exam Location: [facility] [place] Indication: RLE edema. No history of DVT per patient. Note that patient had echo, showing RVSP = 78mm Hg. Highly pulsatile venous. HISTORY: RLE edema. No history of DVT per patient. Note that patient had echo, showing RVSP = 78mm Hg. Highly pulsatile venous. PROCEDURES: Venous duplex imaging was performed in only the right lower extremity. The following venous structures were evaluated: common femoral vein, profunda vein, proximal portion of the greater saphenous vein, superficial femoral vein, and the popliteal vein. In addition, the posterior tibial and peroneal veins were evaluated. FINDINGS: Normal 2-D Doppler and augmentation and compressibility throughout the lower extremity venous structures. Additional imaging through the proximal calf veins also reveals no thrombus. Limited evaluation of the greater saphenous vein is patent with no thrombus. CONCLUSIONS No DVT right lower extremity. Dr. Tiff Sandoval DO (Electronically Signed) Final Date: 26 February 2022 07:51 S
--- NOTE | 2022-02-25 17:09 | US_ITS ---
WS: [id number] RENAL ULTRASOUND HISTORY: renal masses COMPARISON: Noncontrast CT abdomen 02/25/2022 TECHNIQUE: 2-D and color Doppler imaging of the kidney submitted. Right kidney: 10.4 cm x 5.2 cm x 5.0 cm. Normal size kidney. No hydronephrosis. There are a few very small cortical hypoechoic mass is. These are predominantly too small to characterize. The largest measures 1.4 cm and is probably a cyst. Ther e are additional exophytic decreased echogenic nodules which are probably cysts. Some of these are co mplex. Left kidney: 9.3 cm x 4.9 cm x 4.6 cm. Normal size kidney is very difficult to visualize. There are a few small cortical cysts. No solid mas s identified. Aorta: Normal. Urinary Bladder: Nondistended. US/US renal BI* [id number] IMPRESSION: 1. Mildly limited evaluation of the kidneys. No hydronephrosis. 2. Bilateral cortical hypodensities. Some of these are cysts and some are too small to characterize. No large solid mass.
--- NOTE | 2022-02-25 17:09 | USCV_ITS ---
Marsha Pantoja Age: 86 Gender: F : 1935 Exam Date: 02/25/2022 19:31 Ordering Phys: Francesco Garcia MD Technologist: MANSOOR [place] [facility] [place]: Malaise, fatigue, SOB, bradycardia BP: 206 / 94 HR: 42 Rhythm: Sinus bradycardia Technical Quality: Adequate MEASUREMENTS (Male / Female) Normal Values 2D ECHO LV Diastolic Diameter PLAX 2.9 cm 4.2 - 5.9 / 3.9 - 5.3 cm LV Systolic Diameter PLAX 1.9 cm IVS Diastolic Thickness 1.6 cm 0.6 - 1.0 / 0.6 - 0.9 cm IVS Systolic Thickness 2.1 cm LVPW Diastolic Thickness 1.4 cm 0.6 - 1.0 / 0.6 - 0.9 cm LVPW Systolic Thickness 1.9 cm LVOT Diameter 1.7 cm LV Ejection Fraction 2D Teich 67.3 % LV Ejection Fraction MOD 2C 74.3 % LV Ejection Fraction 2C AL 75.0 % LA Diameter 4.4 cm LA Width 3.9 cm LA Height 5.8 cm RA Width 3.9 cm RA Height 4.4 cm Aorta at Sinotubular Diameter 2.6 cm IVC Diameter 1.9 cm M-MODE Aortic Annulus Diameter 2.6 cm LA Ao Ratio MM 1.6 MV E Point Septal Separation 0.2 cm DOPPLER AV Peak Velocity 265.0 cm/s LVOT Peak Velocity 169.0 cm/s AV Area Cont Eq vti 1.4 cm squared AV Area Cont Eq pk 1.4 cm squared MV Area PHT 2.8 cm squared Mitral E to A Ratio 1.3 MV E' Velocity 85.0 cm/s Mitral E to MV E' Ratio 17.7 Mitral E to LV E' Lateral Ratio 18.5 Mitral E to LV E' Septal Ratio 16.9 TR Peak Velocity 401.8 cm/s TR Peak Gradient 64.6 mmHg TV Peak E Velocity 77.0 cm/s Right Atrial Pressure 10.0 mmHg Pulmonary Artery Systolic Pressu 74.6 mmHg PV Peak Velocity 195.0 cm/s RV Acceleration Time 0.1 s RV Ejection Time 0.4 s RV AcT/ET 0.2 FINDINGS Left Ventricle Normal left ventricular size, systolic function and moderately increased wall thickness, with no regional wall motion abnormalities. Left ventricular ejection fraction is estimated at 70 %. Moderate concentric left ventricular hypertrophy. Abnormal diastolic function. Right Ventricle Normal right ventricular size and systolic function. Right ventricular systolic pressure 76 mmHg. Right Atrium Mildly increased right atrial size. Right atrial pressure estimated at 8 mm Hg. Left Atrium Moderately increased left atrial size. Mitral Valve Severe mitral annular calcification. Moderately thickened mitral valve. No mitral valve stenosis. Moderate mitral valve regurgitation. Aortic Valve Moderately thickened and calcified aortic valve. Mild aortic valve stenosis, peak velocity 2.7 m/s, peak gradient 28 mm Hg, mean gradient 12.4 mmHg, BLOSSOM 1.4 cm squared. No aortic valve regurgitation. Tricuspid Valve Structurally normal tricuspid valve. No tricuspid valve stenosis. Moderate tricuspid valve regurgitation. Pulmonic Valve Structurally normal pulmonic valve. No pulmonary valve stenosis. [id number] pulmonary valve regurgitation. Pericardium No pericardial effusion. Aorta Normal size aortic root and proximal ascending aorta. IVC Normal IVC dimension with <50% respiratory change of the inferior vena cava. CONCLUSIONS 1. Normal left ventricular size, systolic function and moderately increased wall thickness, with no regional wall motion abnormalities. Left ventricular ejection fraction is estimated at 70 %. Moderate concentric left ventricular hypertrophy. Abnormal diastolic function. 2. Moderate mitral and tricuspid valve regurgitation. 3. Mild aortic valve stenosis, peak velocity 2.7 m/s, peak gradient 28 mm Hg, mean gradient 12.4 mmHg, BLOSSOM 1.4 cm squared. 4. Severe pulmonary hypertension with pulmonary artery pressure estimated at 76 mm Hg. 5. When compared to study dated 05/24/2019, there is moderate mitral and tricuspid valve regurgitation and severe pulmonary HTN. Beatrice Mayorga MD (Electronically Signed) Final Date: 26 February 2022 08:17 S
--- NOTE | 2022-02-25 17:12 | P.HP_ITS ---
Providers/Chief Complaint Admitting Physician: Francesco Garcia Primary Care Provider: Mely Combs MD Chief Complaint: ABDOMINAL PAIN History of Present Illness Pleasant 86-year-old lady with history of hypertension, MVR, chronic diastolic heart failure, presented due to ongoing fatigue, mild chest pressure, in ER found to have severe bradycardia, heart rates mid to high 30s. Denies problems with bradycardia in the past. Denies any recent COVID chest pain or pressure. Has been having mild cough, but this is not new. Has been having lower back pain, recently was diagnosed with lumbar compression fracture. CT abdomen pelvis was obtained due to abdomen feeling off recently. May be due to constipation. CT showing heterogenous appearance of the liver. Limited evaluation without IV contrast. Marked cardiomegaly. Very small amount of free fluid in the pelvis. Marked perinephric stranding around each kidney with no renal obstruction. Correlate with possible urinary tract infection. Additional bilateral cortical masses of variable density which cannot be further characterized without IV contrast. No GI tract obstruction. She is otherwise afebrile. Without leukocytosis and otherwise unremarkable CBC. Sodium 131. BUN 29. Creatinine 0.9. AST 34, ALT 40. Baseline troponin 47. TSH 2.37. Urine WBC 0-4. Squamous Pelo cells 10-15. 4+ bacteria. Urine culture has been requested. In the ER she is hypertensive. 192/59. She reports at night having mild swelling of the right leg worse than the left. Review of Systems Const: Reports: fatigue; Denies: fever(s), chills, body aches or malaise Eyes: Denies: change in vision, eye discomfort or eye redness ENMT: Denies: throat pain, oral sores or ear or mastoid pain Card: Denies: pre-syncope Resp: Reports: non-productive cough (mild); Denies: dyspnea, productive cough, change in phlegm color or hemoptysis GI: Denies: abdominal pain, nausea, vomiting, diarrhea, constipation, hematochezia or melena : Denies: flank pain, urinary frequency or hematuria Musc: Denies: back pain, joint swelling or joint redness Skin/Breast: Denies: rash or new lesions Neuro: Denies: headache(s), numbness in extremities, weakness in extremities, dizziness, confusion or seizure-like activity Endo: Denies: polyuria or polydipsia David/Lymph: Denies: easy bleeding or tender lymph nodes All/Imm: Denies: urticaria or tongue swelling Medications/Allergies Home Medications Medication Instructions Recorded Confirmed Last Taken Type atorvastatin 20 mg tablet 20 mg PO DAILY@08 03/23/19 02/25/22 02/25/22 History brimonidine 0.2 % eye drops 1 drop ophthalmic (eye) BID@03/23/19 02/25/22 02/24/22 History timolol maleate 0.5 % eye drops 1 drop ophthalmic (eye) BID@03/23/19 02/25/22 02/24/22 History vitamins A,C,I-jivm-vmycsu 14,320 1 cap PO DAILY@03/23/19 02/25/22 02/25/22 History unit-226 mg-200 unit capsule (PreserVision AREDS) furosemide 20 mg tablet 20 mg PO DAILY@02/28/20 02/25/22 02/25/22 History oxybutynin chloride 10 mg 10 mg PO DAILY@02/28/20 02/25/22 02/24/22 History tablet,extended release 24 hr pantoprazole 40 mg tablet,delayed 40 mg PO DAILY@07/06/20 02/25/22 02/24/22 History release cholecalciferol (vitamin D3) 25 25 mcg PO DAILY 02/24/21 02/25/22 02/25/22 History mcg (1,000 unit) capsule (Vitamin D3) losartan 50 mg tablet 50 mg PO Q12H 30 days #60 tabs 02/26/21 02/25/22 02/25/22 Rx isosorbide mononitrate 120 mg 120 mg PO DAILY@08 PRN Blood 10/01/21 02/25/22 Unknown History tablet,extended release 24 hr Pressure metoprolol tartrate 25 mg tablet 25 mg PO BID #180 tabs 10/21/21 02/25/2202/07 Rx hydralazine 50 mg tablet 25 mg PO Q8H 02/25/22 02/25/22 02/25/22 History netarsudil 0.02 %-latanoprost 1 drp ophthalmic (eye) BEDTIME 02/25/22 02/25/22 02/24/22 History 0.005 % eye drops (Rocklatan) Allergies Allergy/AdvReac Type Severity Reaction Status Date / Time amlodipine Allergy Head feels Verified 10/01/21 07:21 funny, mental status change aspirin Allergy rash Verified 10/01/21 07:21 Penicillins Allergy rash Verified 10/01/21 07:21 PFSH Acute PFSH: Medical History Abdominal pain Aortic valve sclerosis Benign essential hypertension Chronic diastolic heart failure Fall Feeling light headed Glaucoma Mixed hyperlipidemia Nonrheumatic mitral valve regurgitation Rectocele 02/07/2019: Patient reports a bulge at the vaginal opening that has been present for at least 6 weeks. On exam, she was noted to have a first-degree vault prolapse, first-degree cystocele, and second to third-degree rectocele. Patient decided to follow for now. Syncope Urgency incontinence Surgical History History of hysterectomy (~1976) KAROLINE, (unsure if has ovaries). Performed at [facility] in [place], [place] History of tubal ligation Hx of bilateral cataract extraction Status post colonoscopy Family History Grandmother Diabetes Maternal Mother Heart disease Father Heart disease Daughter Heart disease Stroke Sister Heart disease Stroke Colon cancer Brother Hypertension Denies family history of Anesthesia complication Bleeding disorder Social History Smoking and tobacco status: never smoked Alcohol intake: never Additional social history: Well balanced diet Vitals/I&O/Wt Last Vital Signs Temp 98.3 F 02/25/22 11:02 Pulse 39 L 02/25/22 16:09 Resp 16 02/25/22 16:09 BP 175/64 02/25/22 16:09 Pulse Ox 95 02/25/22 16:09 O2 Del Method 02/25/22 17:02 Weight last 48 hrs Weight 72.688 kg Weight 79.379 kg Weight 69.4 kg Physical Exam Narrative: Daughter at bedside Const: COMMON NORMALS: patient oriented x3 and alert GENERAL APPEARANCE: cooperative ORIENTATION/CONSCIOUSNESS: Yes awake HENMT: COMMON NORMALS: oropharynx normal Neck/C-Spine: COMMON NORMALS: no JVD Resp: COMMON NORMALS: normal respiratory effort and clear to auscultation bilaterally AUSCULTATION: clear to auscultation bilaterally Cardio: COMMON NORMALS: no JVD, regular rhythm, S1 normal heart sound present, S2 normal heart sound present and No murmurs present (Cardio) RATE: bradycardic RHYTHM: regular rhythm HEART SOUNDS: S1 normal heart sound present and S2 normal heart sound present GI: COMMON NORMALS: Normal to inspection, nondistended, normoactive bowel sounds present, Soft to palpation and non-tender PALPATION: Yes Soft to palpation Extremity: COMMON NORMALS: no joint enlargement and no pedal edema Neuro: COMMON NORMALS: patient oriented x3 and moves all extremities SENSORIUM/ORIENTATION: Yes alert Skin: COMMON NORMALS: no rashes or lesions noted GENERAL SKIN EXAM: no rashes or lesions noted Data 02/25/22 11:38 02/25/22 11:38 A&P Assessment and plan (1) Bradycardia with 31-40 beats per minute: Hold metoprolol. Monitor on telemetry. Check magnesium. Complete troponin EKG series. Check D-dimer. TTE (2) Leg edema, right: Right lower extremity duplex. Mild swelling at night compared to left. (3) Cardiomegaly: Echo (4) Renal mass: Additional assessment by kidney ultrasound. (5) Abnormal CT scan, kidney: Assessment [id number]. Follow-up urine culture, although UA not suggestive of UTI. Monitor on telemetry for possible A. fib/embolic etiology. (6) Abnormal urinalysis: Follow-up urine culture. Follow-up white count, watch for any fever. Plan Heterogenous liver on CT: Check INR. Noted mild transaminitis. Concern for possible chronic liver injury/cirrhosis. Check otitis panel. Cardiomegaly, consideration of right heart failure. Assess TTE Aortic valve sclerosis HTN: Continue hydralazine, losartan, in view of severe bradycardia will decrease doses. Monitor blood pressures. Hold metoprolol. Glaucoma HLD Rectocele Other problems noted. Attestations Medical Necessity Statement*: Place in observation for additional symptomatic bradycardia. Coding Level of Care Code Acute Licensed Nuclear Control Room Operator for [facility] Fwd Diagnoses Bradycardia with 31-40 beats per minute R00.1 Leg edema, right R60.0 Cardiomegaly I51.7 Renal mass N28.[address] scan, kidney R93.429 Abnormal urinalysis R82.90
[2022-02-25] MEDS: enoxaparin 40 mg/0.4 mL Syringe SUBCUT (17:40)
[2022-02-25] MEDS: hyDRALAzine 25 mg Tablet 12.5 MG PO (17:40)
[2022-02-25] MEDS: losartan 50 mg Tablet 25 MG PO (17:59)
[2022-02-25 18:41] LABS: D Dimer 1.78 ug/mIFEU (0-0.59)
[2022-02-25 18:54] LABS: Troponin T (5th) Once 58 ng/L (0-10)
--- NOTE | 2022-02-25 19:38 | PC.NURSE ---
Bedside report given to ANALI Silvestre.
[2022-02-25 20:27] LABS: Hepatitis A Antibody IgM Non-Reactive (Nonreactive); Hepatitis B Core IgM Non-Reactive (Nonreactive); Hepatitis B Surface Antigen Non-Reactive (Nonreactive); Hepatitis C Virus Antibody Non-Reactive (Nonreactive)
[2022-02-25] MEDS: brimonidine 0.2% Op Soln 5 mL Btl 1 DROP EYE-BOTH (20:57)
[2022-02-26] VITALS (212 sets, daily range): BP systolic 134–227; BP diastolic 49–107; PULSE 34–44; TEMP 36.6–38.4; O2SAT 91–99
--- NOTE | 2022-02-26 00:52 | PC.NURSE ---
Patient heart rate decreasing to low 30s sustaining 34 at this time. Patient reports feeling weaker and more tired stating I have no energy. Informed Dr Harris of patient condition and received order to transfer to ICU for closer monitoring. Report to be given to ANALI Davies at bedside.
[2022-02-26] MEDS: hyDRALAzine 25 mg Tablet 12.5 MG PO ×2 (01:13→08:28)
[2022-02-26 03:12] LABS: Alanine Aminotransferase 37 U/L (0-33); Albumin Level 3.3 g/dL (3.5-5.2); Alkaline Phosphatase 85 U/L (35-105); Anion Gap 13.8 (5-19); Aspartate Amino Transferase 32 U/L (0-32); Blood Urea Nitrogen 27 mg/dL (8-23); Calcium 9.2 mg/dL (8.5-10.5); Carbon Dioxide 22 mmol/L (22-29); Chloride 97 mmol/L (98-107); Globulin 2.7 g/dL (1.3-4.6); Glucose 129 mg/dL (65-115); Magnesium 1.7 mg/dL (1.7-2.3); Osmolality Calculated 275 mOsm/kg (285-295); Potassium 3.8 mmol/L (3.5-5.1); Sodium 129 mmol/L (136-145); Total Bilirubin 0.6 mg/dL (0.15-1.2)
[2022-02-26] MEDS: losartan 50 mg Tablet 25 MG PO ×2 (05:59→17:36)
--- NOTE | 2022-02-26 07:51 | ECG_ITS ---
[facility] Test Date: 2022-02-26 Pat Name: Marsha Pantoja Department: Room: [facility] Gender: Female Safe Expert: : [id number] Requested By: Beatrice Mayorga Order Number: [id number] Ena MD: Beatrice Mayorga M.D. Measurements Intervals [place] Rate: 37 P: 0 DC: 0 QRS: -42 QRSD: 133 T: 50 QT: 522 QTc: 415 Interpretive Statements SINUS RHYTHM COMPLETE HEART BLOCK JUNCTIONAL ESCAPE RHYTHM Compared to ECG 02/25/2022 17:24:23 Idioventricular rhythm now present Sinus rhythm no longer present Left-axis deviation no longer present Right bundle-branch block no longer present Left ventricular hypertrophy no longer present Electronically Signed On 02-27-2022 9:26:03 [employer]AL NUMERICAL [employer]OL PROGRAMMER by Beatrice Mayorga M.D. [id number]
[2022-02-26] MEDS: oxybutynin chloride XL 5 MG TABLET 10 MG PO (08:28)
[2022-02-26] MEDS: atorvastatin 40 mg Tablet 20 MG PO (08:29)
[2022-02-26] MEDS: pantoprazole DR 40 mg Tablet PO (08:29)
[2022-02-26] MEDS: FUROsemide 20 mg Tablet PO (08:29)
[2022-02-26] MEDS: multivitamin therapeutic Tablet 1 TAB PO (08:29)
[2022-02-26 08:46] LABS: Basophils % 0.2 %; Eosinophils % 0.5 %; Hematocrit 34.9 % (37.0-47.0); Hemoglobin 11.6 g/dL (11.5-15.3); Lymphocytes # 1.6 10^3/uL (0.8-4.8); Lymphocytes % 19.8 %; Mean Corpuscular HGB Conc 33.2 g/dL (30.0-36.0); Mean Corpuscular Hemoglobin 30.1 pg (28.0-34.0); Mean Corpuscular Volume 90.4 fl (81-99); Mean Platelet Volume 11.2 fL (7.4-10.4); Monocytes # 0.9 10^3/uL (0.2-0.9); Monocytes % 11.5 %; Neutrophils # 5.44 10^3/uL (1.8-7.7); Neutrophils % 67.8 %; Nucleated Red Blood Cells % 0 %; Platelet Count 176 10^3/cmm (130-400); Red Blood Count 3.86 10^6/uL (4.1-5.3); Red Cell Distribution Width 12.6 % (12.1-15.1)
[2022-02-26 09:05] LABS: Troponin T (5th) Once 66 ng/L (0-10)
--- NOTE | 2022-02-26 17:18 | PM.PN ---
Subjective Subjective: This patient was admitted to heart relative complaints of generalized weakness. She was found to be in third-degree heart block. Seems to have additional escape rhythm. Narrow QRS complexes. She was found to be hypotensive with blood pressure in the 200 range this morning. Was complaining of increasing swelling of the right lower extremity. Venous duplex showed no evidence of DVT. She has an elevated D-dimer. CT of the chest is pending. Heart rate is in the upper 30s and low 40s. Medications: Medication Review Details: Current Medications Acetaminophen (Acetaminophen 325 Mg Tablet) 650 mg PO Q6H PRN PRN Reason: Mild/Mod Pain Or Temp >/= 101 Atorvastatin Calcium (Atorvastatin 40 Mg Tablet) 20 mg PO DAILY@08 [facility] Last Admin: 02/26/22 08:29 Dose: 20 mg Brimonidine Tartrate (Brimonidine 0.2% Op Soln 5 Ml Btl) 1 drop EYE-BOTH BID@ [facility] Last Admin: 02/26/22 10:47 Dose: Not Given Enoxaparin Sodium (Enoxaparin 40 Mg/0.4 Ml Syringe) 40 mg SUBCUT Q24H [facility] Last Admin: 02/25/22 17:40 Dose: 40 mg Furosemide (Furosemide 20 Mg Tablet) 20 mg PO DAILY@08 [facility] Last Admin: 02/26/22 08:29 Dose: 20 mg Hydralazine HCl (Hydralazine 50 Mg Tablet) 50 mg PO Q8H [facility] Isosorbide Mononitrate (Isosorbide Mononitrate Er 60 Mg Tablet) 120 mg PO DAILY@08 PRN PRN Reason: Blood Pressure Losartan Potassium (Losartan 50 Mg Tablet) 25 mg PO Q12H [facility] Last Admin: 02/26/22 05:59 Dose: 25 mg Multivitamins Therapeutic (Multivitamin Therapeutic Tablet) 1 tab PO DAILY [facility] Last Admin: 02/26/22 08:29 Dose: 1 tab Non-Formulary Medication (Timolol 0.5% Op Soln) 1 each EYE-BOTH BID@ [facility] Last Admin: 02/26/22 08:29 Dose: Not Given Ondansetron HCl (Ondansetron 2 Mg/Ml Sdv 2 Ml) 4 mg IVP Q8H PRN PRN Reason: vomiting, or N/V if npo Oxybutynin Chloride (Oxybutynin Chloride Xl 5 Mg Tablet) 10 mg PO DAILY@08 [facility] Last Admin: 02/26/22 08:28 Dose: 10 mg Pantoprazole Sodium (Pantoprazole Dr 40 Mg Tablet) 40 mg PO DAILY@08 [facility] Last Admin: 02/26/22 08:29 Dose: 40 mg Vitals/I&O/Wt Last Vital Signs Temp 97.8 F 02/26/22 01:02 Pulse 38 L 02/26/22 16:00 Resp 22 H 02/25/22 23:14 BP 187/98 02/26/22 14:00 Pulse Ox 98 02/26/22 16:00 O2 Del Method 02/25/22 19:40 02/26/22 02/26/22 02/26/22 06:59 14:59 22:59 Output Total 200 / 200 250 / 250 Balance -200 / 40 -250 / -250 Weight last 48 hrs Weight 160 lb 4 oz Weight 175 lb Weight 153 lb Physical Exam Narrative: GENERAL: The patient is alert and oriented times three. Not in any acute distress. HEENT: No significant pallor, icterus or lymphadenopathy.Oral cavity: There are no mucous membrane lesions. NECK: Trachea appears to be central. No masses noted. No JVD or thyromegaly appreciated. RESPIRATORY: Chest is symmetrical. No intercostals muscle retraction or any accessory muscle activation. There is no chest wall tenderness. Breath sounds are heard bilaterally. No rales or rhonchi heard. No evidence of any consolidation. BREASTS: Deferred. HEART: The heart sounds are normal. No S3 or S4. Short systolic murmur in the lower sternal border. No diastolic murmurs. No pericardial rub ABDOMEN: No vessel pulsations or distention. No tenderness. No organomegaly appreciated. Bowel sounds are normally heard. : Deferred. RECTAL: Deferred. LYMPHATIC: No lymphadenopathy noted in the neck. EXTREMITIES: No edema or cyanosis. No clubbing. MUSCULOSKELETAL: No acute joint deformities or swelling SKIN: There are no significant rashes or ecchymosis NEUROPSYCHIATRIC: The patient is alert and oriented x3. Appears to be in a good mood. No tremors or rigidity noted. Data 02/26/22 08:27 02/26/22 02:00 Other Labs: Laboratory Last Values WBC 8.0 10^3/uL (4.0-10.0) 02/26/22 08:27 RBC 3.86 10^6/uL (4.1-5.3) L 02/26/22 08:27 Hgb 11.6 g/dL (11.5-15.3) 02/26/22 08:27 Hct 34.9 % (37.0-47.0) L 02/26/22 08:27 MCV 90.4 fl (81-99) 02/26/22 08:27 MCH 30.1 pg (28.0-34.0) 02/26/22 08:27 MCHC 33.2 g/dL (30.0-36.0) 02/26/22 08:27 RDW 12.6 % (12.1-15.1) 02/26/22 08:27 Plt Count 176 10^3/cmm (130-400) 02/26/22 08:27 MPV 11.2 fL (7.4-10.4) H 02/26/22 08:27 Neut % (Auto) 67.8 % 02/26/22 08:27 Lymph % (Auto) 19.8 % 02/26/22 08:27 [place] % (Auto) 11.5 % 02/26/22 08:27 Eos % (Auto) 0.5 % 02/26/22 08:27 Baso % (Auto) 0.2 % 02/26/22 08:27 Neut # (Auto) 5.44 10^3/uL (1.8-7.7) 02/26/22 08:27 Lymph # (Auto) 1.6 10^3/uL (0.8-4.8) 02/26/22 08:27 [place] # (Auto) 0.9 10^3/uL (0.2-0.9) 02/26/22 08:27 Eos # (Auto) 0.0 10^3/uL (0.0-0.8) 02/26/22 08:27 Baso # (Auto) 0.0 10^3/uL (0.0-0.1) 02/26/22 08:27 Nucleated RBC % (auto) 0 % 02/26/22 08:27 Nucleated RBCs # 0.0 /100WBC 02/26/22 08:27 D-Dimer 1.78 ug/mIFEU (0-0.59) H 02/25/22 11:38 Sodium 129 mmol/L (136-145) L 02/26/22 02:00 Potassium 3.8 mmol/L (3.5-5.1) 02/26/22 02:00 Chloride 97 mmol/L (98-107) L 02/26/22 02:00 Carbon Dioxide 22 mmol/L (22-29) 02/26/22 02:00 Anion Gap 13.8 (5-19) 02/26/22 02:00 BUN 27 mg/dL (8-23) H 02/26/22 02:00 Creatinine 0.8 mg/dL (0.5-0.9) 02/26/22 02:00 GFR Calculation Not Reportable 02/26/22 02:00 Glucose 129 mg/dL (65-115) H 02/26/22 02:00 Calculated Osmolality 275 mOsm/kg (285-295) L 02/26/22 02:00 Calcium 9.2 mg/dL (8.5-10.5) 02/26/22 02:00 Magnesium 1.7 mg/dL (1.7-2.3) 02/26/22 02:00 Total Bilirubin 0.6 mg/dL (0.15-1.2) 02/26/22 02:00 AST 32 U/L (0-32) 02/26/22 02:00 ALT 37 U/L (0-33) H 02/26/22 02:00 Alkaline Phosphatase 85 U/L (35-105) 02/26/22 02:00 Troponin T Gen 5 ng/L 66 ng/L (0-10) H 02/26/22 08:27 Total Protein 6.0 g/dL (6.6-8.7) L 02/26/22 02:00 Albumin 3.3 g/dL (3.5-5.2) L 02/26/22 02:00 Globulin 2.7 g/dL (1.3-4.6) 02/26/22 02:00 TSH 2.37 uIU/mL (0.27-4.20) 02/25/22 11:38 Urine Color Yellow (Yellow) 02/25/22 11:55 Urine Appearance Clear (CLEAR) 02/25/22 11:55 Urine pH 6 (5-7) 02/25/22 11:55 Ur Specific [place] 1.015 (1.005-1.030) 02/25/22 11:55 Urine Protein 1+ (Negative) H 02/25/22 11:55 Urine Glucose (UA) Norm (Normal) 02/25/22 11:55 Urine Ketones Negative (Negative) 02/25/22 11:55 Urine Blood Neg (Negative) 02/25/22 11:55 Urine Nitrate Negative (Negative) 02/25/22 11:55 Urine Bilirubin Neg (Negative) 02/25/22 11:55 Urine Urobilinogen Norm mg/dL (Negative) 02/25/22 11:55 Ur Leukocyte Esterase Negative (Negative) 02/25/22 11:55 Urine RBC None /hpf (0-2) 02/25/22 11:55 Urine WBC 0-4 /hpf (0-5) H 02/25/22 11:55 Ur Squamous Epith Cells 10-15 /hpf (0-5) H 02/25/22 11:55 Amorphous Sediment Not Reportable 02/25/22 11:55 Urine Bacteria 4+ /hpf (NONE) H 02/25/22 11:55 Hepatitis A IgM Ab Non-reactive (Nonreactive) 02/25/22 18:18 Hep Bs Antigen Non-reactive (Nonreactive) 02/25/22 18:18 Hep B Core IgM Ab Non-reactive (Nonreactive) 02/25/22 18:18 Hepatitis C Antibody Non-reactive (Nonreactive) 02/25/22 18:18 Micro: Microbiology 02/25/22 11:55 Urine Culture - Final Urine,Clean Catch EKG 1: My Interpretation: Third-degree heart block. Sinus rate of 70 bpm. Ventricular rate of 37 bpm. Right bundle branch block pattern. A&P Assessment and plan (1) Symptomatic bradycardia: Patient has symptomatic bradycardia secondary to third-degree heart block. For further management of her condition, she may require a permanent pacemaker plantation. Since she has been take the beta-marta, we may discontinue the beta-marta at this point. We will watch her for 24 to 36 hours of the medication. If she continues to be in heart block, she requested permanent pacemaker evaluation for further management. The risk of bleeding, hematoma, vascular injury, pneumothorax, infection, renal failure and other concomitant complications were explained in detail. The patient and her daughter understood this well and consented to proceed at this time. (2) Aortic valve sclerosis: Patient currently has mild aortic valve stenosis. May not require any specific intervention at this point (3) Chronic diastolic heart failure: Currently seems to be compensated. Patient may be carefully treated with Lasix (4) Benign essential hypertension: Patient seems to have accelerated hypertension with a systolic blood pressure in the 200 range. To better control blood pressure, increase the dose of hydralazine to 50 mg p.o. every 8 hours. (5) Nonrheumatic mitral valve regurgitation: Patient has moderate mitral and tricuspid regurgitation. (6) Severe pulmonary hypertension: Currently asymptomatic. After the CTA, further recommendations will be made Plan The patient was undecided about the permanent pacemaker this morning. However this evening, she made up her mind to have it done. We may do a temporary pacer through the groin, before proceeding with a permanent pacemaker through the left subclavian vein. Attestations Medical Necessity Statement*: Patient requires continued hospital stay for close monitoring and further management Coding Level of Care Code Acute Outboard Motor Assembler for [facility] Fwd History Expanded Problem Focused Exam Detailed Medical Decision Making Moderate Complexity Diagnoses Symptomatic bradycardia R00.1 Aortic valve sclerosis I35.8 Chronic diastolic heart failure I50.32 Benign essential hypertension I10 Nonrheumatic mitral valve regurgitation I34.0 Severe pulmonary hypertension I27.20
[2022-02-26] MEDS: enoxaparin 40 mg/0.4 mL Syringe SUBCUT (17:36)
[2022-02-26] MEDS: hyDRALAzine 50 mg Tablet PO (17:36)
--- NOTE | 2022-02-26 17:44 | PM.PN ---
Subjective Subjective: She is feeling overall tired. Denies chest pain. Has been having some dyspnea, felt like she needed some oxygen so requested for it. Medications: Medication Review Details: Current Medications Acetaminophen (Acetaminophen 325 Mg Tablet) 650 mg PO Q6H PRN PRN Reason: Mild/Mod Pain Or Temp >/= 101 Atorvastatin Calcium (Atorvastatin 40 Mg Tablet) 20 mg PO DAILY@08 [facility] Last Admin: 02/26/22 08:29 Dose: 20 mg Brimonidine Tartrate (Brimonidine 0.2% Op Soln 5 Ml Btl) 1 drop EYE-BOTH BID@ [facility] Last Admin: 02/26/22 10:47 Dose: Not Given Enoxaparin Sodium (Enoxaparin 40 Mg/0.4 Ml Syringe) 40 mg SUBCUT Q24H [facility] Last Admin: 02/25/22 17:40 Dose: 40 mg Furosemide (Furosemide 20 Mg Tablet) 20 mg PO DAILY@08 [facility] Last Admin: 02/26/22 08:29 Dose: 20 mg Hydralazine HCl (Hydralazine 50 Mg Tablet) 50 mg PO Q8H [facility] Isosorbide Mononitrate (Isosorbide Mononitrate Er 60 Mg Tablet) 120 mg PO DAILY@08 PRN PRN Reason: Blood Pressure Losartan Potassium (Losartan 50 Mg Tablet) 25 mg PO Q12H [facility] Last Admin: 02/26/22 05:59 Dose: 25 mg Multivitamins Therapeutic (Multivitamin Therapeutic Tablet) 1 tab PO DAILY [facility] Last Admin: 02/26/22 08:29 Dose: 1 tab Non-Formulary Medication (Timolol 0.5% Op Soln) 1 each EYE-BOTH BID@ [facility] Last Admin: 02/26/22 08:29 Dose: Not Given Ondansetron HCl (Ondansetron 2 Mg/Ml Sdv 2 Ml) 4 mg IVP Q8H PRN PRN Reason: vomiting, or N/V if npo Oxybutynin Chloride (Oxybutynin Chloride Xl 5 Mg Tablet) 10 mg PO DAILY@08 [facility] Last Admin: 02/26/22 08:28 Dose: 10 mg Pantoprazole Sodium (Pantoprazole Dr 40 Mg Tablet) 40 mg PO DAILY@08 [facility] Last Admin: 02/26/22 08:29 Dose: 40 mg Vitals/I&O/Wt Last Vital Signs Temp 97.8 F 02/26/22 01:02 Pulse 38 L 02/26/22 16:00 Resp 22 H 02/25/22 23:14 BP 187/98 02/26/22 14:00 Pulse Ox 98 02/26/22 16:00 O2 Del Method 02/25/22 19:40 02/26/22 02/26/22 02/26/22 06:59 14:59 22:59 Output Total 200 / 200 250 / 250 Balance -200 / 40 -250 / -250 Weight last 48 hrs Weight 72.688 kg Weight 79.379 kg Weight 69.4 kg Physical Exam Const: COMMON NORMALS: patient oriented x3 and alert GENERAL APPEARANCE: cooperative ORIENTATION/CONSCIOUSNESS: Yes awake HENMT: COMMON NORMALS: oropharynx normal Neck/C-Spine: COMMON NORMALS: no JVD Resp: COMMON NORMALS: normal respiratory effort and clear to auscultation bilaterally AUSCULTATION: clear to auscultation bilaterally Cardio: COMMON NORMALS: no JVD, regular rhythm, S1 normal heart sound present, S2 normal heart sound present and No murmurs present (Cardio) RATE: bradycardic RHYTHM: regular rhythm HEART SOUNDS: S1 normal heart sound present and S2 normal heart sound present GI: COMMON NORMALS: Normal to inspection, nondistended, normoactive bowel sounds present, Soft to palpation and non-tender PALPATION: Yes Soft to palpation Extremity: COMMON NORMALS: no joint enlargement and no pedal edema Neuro: COMMON NORMALS: patient oriented x3 and moves all extremities SENSORIUM/ORIENTATION: Yes alert Skin: COMMON NORMALS: no rashes or lesions noted GENERAL SKIN EXAM: no rashes or lesions noted Data 02/26/22 08:27 02/26/22 02:00 Micro: Microbiology 02/25/22 11:55 Urine Culture - Final Urine,Clean Catch A&P Assessment and plan (1) Bradycardia with 31-40 beats per minute: Appreciate cardiology assessment and recommendation. Recommendation for pacemaker due to complete heart block. She has expressed reservation about pacemaker, thinking on it further. Requested CT angiogram chest for additional assessment for PE. Cannot be obtained due to difficulties with IV. We will see if study can be obtained once daily IV access obtained, although overall suspicion for hemodynamically significant PE is lower. (2) Leg edema, right: No DVT on duplex. Mild swelling at night compared to left. (3) Cardiomegaly: Echo with 70% EF, moderate LVH. Moderate MVR and TVR. Mild aortic stenosis. Severe pulmonary hypertension. (4) Renal mass: Additional assessment by kidney ultrasound. Cortical hypodensities. Some are cysts and some too small to characterize. No large solid mass. (5) Abnormal CT scan, kidney: Low suspicion for UTI. Assessment [id number]. Follow-up urine culture, although UA not suggestive of UTI. Monitor on telemetry for possible A. fib/embolic etiology. (6) Abnormal urinalysis: Follow-up urine culture. So far no white count, watch for any fever. Plan Heterogenous liver on CT: Check INR. Noted mild transaminitis. Concern for possible chronic liver injury/cirrhosis. Hepatitis panel unremarkable. Cardiomegaly, consideration of right heart failure, noted moderate TVR, severe pulmonary hypertension although right ventricle normal size and function. Infiltrated IV: Elevate arm, warm compress, neurovascular checks. Aortic valve sclerosis HTN: Increase dose of hydralazine, continue losartan. Monitor blood pressures. Hold metoprolol. Glaucoma HLD Rectocele Other problems noted. Attestations Medical Necessity Statement*: Continue admission for assessment and management of severe symptomatic bradycardia. Coding Level of Care Code Acute Sustainable Systems Analyst for Chg Fwd Diagnoses Bradycardia with 31-40 beats per minute R00.1 Leg edema, right R60.0 Cardiomegaly I51.7 Renal mass N28.[address] scan, kidney R93.429 Abnormal urinalysis R82.90
[2022-02-26] MEDS: brimonidine 0.2% Op Soln 5 mL Btl 1 DROP EYE-BOTH (22:57)
[2022-02-27] VITALS (68 sets, daily range): BP systolic 100–201; BP diastolic 41–89; PULSE 38–81; RESP 18; TEMP 36.5–37.4; O2SAT 91–99
[2022-02-27] MEDS: hyDRALAzine 50 mg Tablet PO ×3 (01:41→17:25)
[2022-02-27 03:50] LABS: Alanine Aminotransferase 30 U/L (0-33); Alkaline Phosphatase 80 U/L (35-105); Anion Gap 13.3 (5-19); Aspartate Amino Transferase 23 U/L (0-32); Blood Urea Nitrogen 25 mg/dL (8-23); Carbon Dioxide 23 mmol/L (22-29); Chloride 99 mmol/L (98-107); Globulin 2.6 g/dL (1.3-4.6); Glucose 130 mg/dL (65-115); Magnesium 1.9 mg/dL (1.7-2.3); Osmolality Calculated 278 mOsm/kg (285-295); Potassium 4.3 mmol/L (3.5-5.1); Sodium 131 mmol/L (136-145); Total Bilirubin 0.8 mg/dL (0.15-1.2); Total Protein 5.6 g/dL (6.6-8.7)
[2022-02-27] MEDS: losartan 50 mg Tablet 25 MG PO ×2 (05:42→17:24)
[2022-02-27] MEDS: atorvastatin 40 mg Tablet 20 MG PO (08:36)
[2022-02-27] MEDS: multivitamin therapeutic Tablet 1 TAB PO (08:36)
[2022-02-27] MEDS: oxybutynin chloride XL 5 MG TABLET 10 MG PO (08:36)
[2022-02-27] MEDS: FUROsemide 20 mg Tablet PO (08:36)
[2022-02-27] MEDS: brimonidine 0.2% Op Soln 5 mL Btl 1 DROP EYE-BOTH ×2 (08:37→21:25)
[2022-02-27] MEDS: pantoprazole DR 40 mg Tablet PO (08:37)
--- NOTE | 2022-02-27 08:48 | PC.NURSE ---
Rounded with Dr. Toribio. Reviewed labs, medications, and vital signs. Orders to give hydralazine early and check with Dr. Garcia about plans for CT today.
[2022-02-27] MEDS: iohexol 350 mg/mL 500 mL Btl (per mL) IV (09:44)
--- NOTE | 2022-02-27 10:51 | PC.CHAP ---
Pastoral Care Encounter/Spiritual Assessment Type of Contact [] Declined hard candy spinner visit [] Patient/Family/Request visit [] Outpatient visit [] Follow-up visit [] Physician referral [] Code/Alert [x] Routine visit [] Staff referral [] Actively dying [] Patient sleeping [x] Family support [] [] Out of room [] Palliative care [] [] Receiving care in room [] Pre-surgical visit [] Trauma [] Long length of stay [x] ICU visit [] Other: Relational/Emotional Strength [] Patient feels connected with others/family/visitors/staff [] Distress [] Loneliness/isolation [] Abandonment Spirituality of Patient [] Person of Jackie [] Attends Roman Catholic of their Jackie [] Believes in Prayer [] Reads Bible or Faith materials [] There are Spiritual issues to be addressed Kiln [employer]ger Interventions [x] Prayer [] Active listening [] Non-anxious presence [] Spiritual/emotional support [] Crisis/trauma care [] Spiritual counseling [] Bereavement support [] Provided bereavement packet [] Provided Bible/devotional materials [] Provided toy/stuffed animal, coloring book to patient or family member [] Provided Communion [] Anointing/[place] [] Salvation [x] Completed spiritual assessment [] Other: Impact on Illness or Injury [] Angry [] Fearful [] Anxious [] Often cries [] Exhaustion [] Unable to work [] Unable to attend pentecostal [] Unable to walk/stand [] Unable to read [] Unable to drive [] Unable to eat/drink [] Unable to sleep [] Unable to be with family [] Patient intubated [] Other: Summary Time spent with patient
--- NOTE | 2022-02-27 12:04 | PM.PN ---
Subjective Subjective: Patient continues to be in third-degree heart block. She has a hacking cough which has been there for couple of weeks. No fever or chills. Medications: Medication Review Details: Current Medications Acetaminophen (Acetaminophen 325 Mg Tablet) 650 mg PO Q6H PRN PRN Reason: Mild/Mod Pain Or Temp >/= 101 Atorvastatin Calcium (Atorvastatin 40 Mg Tablet) 20 mg PO DAILY@08 [facility] Last Admin: 02/27/22 08:36 Dose: 20 mg Brimonidine Tartrate (Brimonidine 0.2% Op Soln 5 Ml Btl) 1 drop EYE-BOTH BID@ [facility] Last Admin: 02/27/22 08:37 Dose: 1 drop Enoxaparin Sodium (Enoxaparin 40 Mg/0.4 Ml Syringe) 40 mg SUBCUT Q24H [facility] Last Admin: 02/26/22 17:36 Dose: 40 mg Furosemide (Furosemide 20 Mg Tablet) 20 mg PO DAILY@08 [facility] Last Admin: 02/27/22 08:36 Dose: 20 mg Hydralazine HCl (Hydralazine 50 Mg Tablet) 50 mg PO Q8H [facility] Last Admin: 02/27/22 08:37 Dose: 50 mg Isosorbide Mononitrate (Isosorbide Mononitrate Er 60 Mg Tablet) 120 mg PO DAILY@08 PRN PRN Reason: Blood Pressure Losartan Potassium (Losartan 50 Mg Tablet) 25 mg PO Q12H [facility] Last Admin: 02/27/22 05:42 Dose: 25 mg Multivitamins Therapeutic (Multivitamin Therapeutic Tablet) 1 tab PO DAILY [facility] Last Admin: 02/27/22 08:36 Dose: 1 tab Non-Formulary Medication (Timolol 0.5% Op Soln) 1 each EYE-BOTH BID@ [facility] Last Admin: 02/27/22 08:37 Dose: Not Given Ondansetron HCl (Ondansetron 2 Mg/Ml Sdv 2 Ml) 4 mg IVP Q8H PRN PRN Reason: vomiting, or N/V if npo Oxybutynin Chloride (Oxybutynin Chloride Xl 5 Mg Tablet) 10 mg PO DAILY@08 [facility] Last Admin: 02/27/22 08:36 Dose: 10 mg Pantoprazole Sodium (Pantoprazole Dr 40 Mg Tablet) 40 mg PO DAILY@08 [facility] Last Admin: 02/27/22 08:37 Dose: 40 mg Vitals/I&O/Wt Last Vital Signs Temp 99.4 F 02/27/22 00:00 Pulse 39 L 02/27/22 05:50 Resp 22 H 02/25/22 23:14 BP 129/44 02/27/22 04:50 Pulse Ox 98 02/27/22 04:50 O2 Del Method 02/25/22 19:40 02/26/22 02/27/22 02/27/22 22:59 06:59 14:59 Intake Total 0 / 0 Output Total 600 / 600 100 / 100 Balance -600 / -600 0 / -600 -100 / -100 Weight last 48 hrs Weight 160 lb 4 oz Physical Exam Narrative: GENERAL: The patient is alert and oriented times three. Not in any acute distress. HEENT: No significant pallor, icterus or lymphadenopathy.Oral cavity: There are no mucous membrane lesions. NECK: Trachea appears to be central. No masses noted. No JVD or thyromegaly appreciated. RESPIRATORY: Chest is symmetrical. No intercostals muscle retraction or any accessory muscle activation. There is no chest wall tenderness. Breath sounds are heard bilaterally. No rales or rhonchi heard. No evidence of any consolidation. BREASTS: Deferred. HEART: The heart sounds are normal. No S3 or S4. Systolic murmur at the base of the heart with no diastolic murmurs. No pericardial rub ABDOMEN: No vessel pulsations or distention. No tenderness. No organomegaly appreciated. Bowel sounds are normally heard. : Deferred. RECTAL: Deferred. LYMPHATIC: No lymphadenopathy noted in the neck. EXTREMITIES: No edema or cyanosis. No clubbing. MUSCULOSKELETAL: No acute joint deformities or swelling SKIN: There are no significant rashes or ecchymosis NEUROPSYCHIATRIC: The patient is alert and oriented x3. Appears to be in a good mood. No tremors or rigidity noted. Data 02/26/22 08:27 02/27/22 02:34 Micro: Microbiology 02/25/22 11:55 Urine Culture - Final Urine,Clean Catch A&P Assessment and plan (1) Symptomatic bradycardia: Patient has symptomatic bradycardia secondary to third-degree heart block. For further management of her condition, she may require a permanent pacemaker plantation. The risk of bleeding, hematoma, vascular injury, pneumothorax, infection, renal failure and other concomitant complications were explained in detail. The patient and her daughter understood this well and consented to proceed at this time. (2) Aortic valve sclerosis: Patient currently has mild aortic valve stenosis. May not require any specific intervention at this point (3) Chronic diastolic heart failure: Currently seems to be compensated. Patient may be carefully treated with Lasix (4) Benign essential hypertension: The blood pressure seems to be slowly getting under control. (5) Nonrheumatic mitral valve regurgitation: Patient has moderate mitral and tricuspid regurgitation. (6) Severe pulmonary hypertension: Currently asymptomatic. After the CTA, further recommendations will be made Plan Permanent pacemaker plantation today. We may do a temporary pacer insertion through the right groin prior to the permanent pacer insertion. Attestations Medical Necessity Statement*: Patient requires continued hospital stay for close monitoring and further management Coding Level of Care Code Acute Merchant Tailor for Chg Fwd History Expanded Problem Focused Exam Expanded Problem Focused Medical Decision Making Moderate Complexity Diagnoses Symptomatic bradycardia R00.1 Aortic valve sclerosis I35.8 Chronic diastolic heart failure I50.32 Benign essential hypertension I10 Nonrheumatic mitral valve regurgitation I34.0 Severe pulmonary hypertension I27.20
--- NOTE | 2022-02-27 12:08 | P.HPUD_ITS ---
Surgery/Procedure H&P Update DATE OF PROCEDURE: February 27, 2022 DATE H&P PERFORMED: 02/25/22 H&P UPDATE INFORMATION: I have reviewed H&P completed within last 30 days, I have examined patient prior to procedure and No changes to prior documentation PREOP DIAGNOSIS: Symptomatic bradycardia/ 3rd degree heart block PRIMARY INDICATION FOR PROCEDURE: Symptomatic bradycardia/high degree AV block PLANNED PROCEDURE: Operation Date: 02/27/22 12:00 Proposed Procedures p Pacemaker Insertion(Not Applicable) - Kesha Toribio MD PATIENT REASSESSED PRIOR TO SEDATION, WITH NO CHANGE NOTED: Yes PHYSICAL EXAM: alert, oriented x 3, clear to auscultation bilaterally and r egular rate & rhythm AIRWAY EVAL/ANESTHESIA PLAN: normal airway, see other exam findings, ASA III, Monitored Anesthesia, Local Anesthesia, Risks, benefits & alternatives of sed ation and/or procedure discussed and Patient agrees to continue as planned
--- NOTE | 2022-02-27 12:51 | CT_ITS ---
WS: [id number] CT CHEST ANGIOGRAPHY WITH REFORMATS HISTORY: assess for pe TECHNIQUE: Contiguous axial images are obtained through the chest during arterial injection of intrav enous contrast. Images are reconstructed to evaluate the pulmonary arteries. MIP imaging also reviewe d. All CT scans at [facility] use at least one of these dose optimization techniques: automat ed exposure control; mA and/or kV adjustment per patient size (includes targeted exams where dose is matched to clinical indication); or iterative reconstruction. CONTRAST: Omnipaque 350; 75 mL IV. DLP: 87.75 mGy.cm COMPARISON: 10/16/2016, 02/25/2022 Very good opacification of the pulmonary arteries. No central pulmonary emboli. Nonocclusive filling defects beginning in the segmental branches of the lower lobe pulmonary arteries, bilateral. Slightly greater burden RIGHT lower lobe. No upper lobe emboli. Atherosclerosis aorta. No aneurysm. Marked enlargement of the heart. No RIGHT heart strain. There is mild pulmonary edema. Very small bilateral pleural effusions. No dense consolidation or pneu monia. No lymph nodes. CT/CT angio chest PE protcl [id number] IMPRESSION: 1. Bilateral, nonocclusive, segmental branch pulmonary emboli lower lobes. 2. No RIGHT heart strain. 3. Marked cardiac enlargement. 4. Mild pulmonary edema is very small bilateral pleural effusions. Pleural eff usions have increased slightly in size since 02/25/2022.
--- NOTE | 2022-02-27 15:20 | PM.OP ---
Operative Report Date of procedure: February 27, 2022 Pre-op diagnosis: Preop Diagnosis Symptomatic bradycardia/ 3rd degree heart block Procedure: LOCATION: Cardiac catheterization lab PREOPERATIVE DIAGNOSES: Symptomatic bradycardia/third-degree heart block. POSTOPERATIVE DIAGNOSES: Same. COMPLICATIONS: None. ESTIMATED BLOOD LOSS: Around less than 5 milliliters. BRIEF HISTORY: 86-year-old white female with a history of heart failure with a preserved LV ejection fraction, essential benign hypertension, aortic valve sclerosis, mitral regurgitation, dyslipidemia, recurrent syncope, ventricular tachycardia, presented with complaints of generalized weakness/lethargy for the last few days. She was found to be in third-degree heart block with a heart rate in the upper 30s. She was taken metoprolol 25 mg p.o. twice daily. This was held for more than 36 hours. She continued to be in third-degree heart block with a heart rate in the 30s most of the times. Because of the symptomatic bradycardia and high degree AV block, for further management of her condition, a permanent dual-chamber pacemaker implantation was recommended. A dual chamber permanent pacemaker implantation was recommended for AV synchrony and symptom relief The procedure was explained to the patient and her daughter in detail with the risks and benefits. The risks of bleeding, hematoma, vascular injury, infection, pneumothorax, myocardial perforation and other concomitant complications were explained in detail, which the patient understood well and consented to proceed. Procedures performed 1. Left subclavian venogram by placing a multipurpose catheter in the left subclavian vein, by inserting the catheter through the right femoral vein, crossing the inferior vena cava, right atrium, superior vena cava then into the left subclavian vein. Angiogram was performed in the AP view. 2. Transvenous temporary pacemaker insertion through the right femoral vein 3. Permanent dual-chamber pacemaker implantation through the left subclavian vein PROCEDURE DESCRIPTION: The patient was brought to the Cardiac Catheterization Lab. The left and the right side of the neck , the subclavian area and the right groin were cleaned and draped in a sterile fashion. 1% Xylocaine was used as the local anesthetic agent. Right femoral venous access was obtained using a micropuncture needle system. A 6 Gu[place]an venous sheath was introduced in to the femoral vein. The left subclavian venogram was performed through a multipurpose catheter inserted into the subclavian vein. The multipurpose catheter was first inserted in the right femoral vein. Then the catheter was advanced under fluoroscopic guidance, through the inferior cava into the right atrium. From the right atrium the catheter was advanced into the left subclavian vein through the supra vena cava. A left subclavian venous access was obtained using a micropuncture needle system, under venographic guidance. . A two-inch long incision was made 2.0 centimeters below the midclavicular region. By sharp and blunt dissection, a pacemaker pocket was made. A second venous access was obtained using another micropuncture needle system. Over the first guidewire, a 7-Guinean venous sheath with dilator was advanced. The venous dilator and the guidewire were taken out. A screw-in ventricular lead was advanced through the venous sheath and was positioned towards the right ventricle. Under fluoroscopic guidance, the ventricular lead was positioned toward the right ventricular apex. Good pacing and sensing thresholds were obtained. The lead was secured to the endocardium by advancing the helix. The stability of the lead was tested by gentle twisting movements and also by asking the patient to take some deep breaths and cough. The venous sheath was peeled off, at this time. The lead was secured to the pectoralis fascia, by suturing with 1-0 Surgilon. Over the second guidewire, another 7-Guinean venous sheath with dilator was advanced. The dilator and the guidewire were taken out. Under fluoroscopic guidance, an atrial lead (Medtronic), was advanced and positioned toward the right atrium. The lead was positioned in the right atrial appendage. Good pacing and sensing thresholds were obtained. The lead was secured to the endocardium by advancing the helix. Stability of the lead was tested by gentle twisting movements and also by asking the patient to take some deep breaths and cough. The venous sheath was peeled off, at this time. The lead was secured to the pectoralis fascia by suturing with 0-Surgilon. The pacemaker pocket was copiously irrigated with vancomycin solution. Complete hemostasis was achieved. Sponge counts were confirmed. The leads were attached to a Medtronic generator. The leads were positioned behind the generator and the generator was attached to the pectoralis fascia by suturing with 0-Surgilon. The pocket was closed in layers. Skin was approximated using 4-0 Vicryl. IMPLANTED DEVICES: ATRIAL LEAD: Model number: 5076/45 Serial number: [id number] Make: Medtronic VENTRICULAR LEAD: Model number: 5076/52 Serial number: [id number] Make: Medtronic GENERATOR Brand: Casi XT DR MRI Surekhris Model number: W1 DR 01 Serial number: [id number] Make: Medtronic IMPLANTATION DATA: With the pacing system analyzer, the R wave sensing was 8.9 we will do the lead impedance of 760 and the patient residual 0.625 V at 0.4 msec the atrial lead sensing was 1.6 mV and the pacing threshold was 1.0 V at 0.4 ms. The lead impedance was 418 ohms. Through the device, the R-wave sensing was noted obtained because of the pacer dependency. The lead impedance was 646 ohms. The pacing threshold was 0.5 V at 0.4 ms. The right atrial sensing was 2.3 mV. Lead impedance of 380 ohms and the patient pressure was 1 V at 0.4 ms . The pacemaker was set for DDDR mode with upper rate of 130 and a lower rate of 60 A pressure dressing was applied over the pacemaker site. The patient was transferred to the Medical Floor in stable condition. A chest x-ray was ordered to confirm the lead position and also to rule out any pneumothorax.
[2022-02-27] MEDS: clindamycin 900 MG/50 ML PREMIX 100 MG IV ×2 (15:41→21:25)
--- NOTE | 2022-02-27 17:36 | PC.NURSE ---
Clarified order for Lovenox with Dr. Garcai. Orders to check with Dr. Toribio. Spoke to Dr. Toribio who ordered to hold this evening's dose of Lovenox.
--- NOTE | 2022-02-27 19:15 | PC.NURSE ---
Received bedside report from ANALI Bryan. Patient resting in bed s/p pacemaker placement. Pressure dressing remains in place and is c,d,i. No s/s of bleeding or hematoma formation observed. Family at bedside. Will continue to monitor.
--- NOTE | 2022-02-27 19:30 | PM.PN ---
Subjective Subjective: Feeling tired this morning. Some dyspnea. Denies chest pain. Medications: Medication Review Details: Current Medications Acetaminophen (Acetaminophen 325 Mg Tablet) 650 mg PO Q6H PRN PRN Reason: Mild/Mod Pain Or Temp >/= 101 Atorvastatin Calcium (Atorvastatin 40 Mg Tablet) 20 mg PO DAILY@08 [facility] Last Admin: 02/27/22 08:36 Dose: 20 mg Brimonidine Tartrate (Brimonidine 0.2% Op Soln 5 Ml Btl) 1 drop EYE-BOTH BID@ [facility] Last Admin: 02/27/22 08:37 Dose: 1 drop Enoxaparin Sodium (Enoxaparin 40 Mg/0.4 Ml Syringe) 40 mg SUBCUT Q24H [facility] Last Admin: 02/26/22 17:36 Dose: 40 mg Furosemide (Furosemide 20 Mg Tablet) 20 mg PO DAILY@08 [facility] Last Admin: 02/27/22 08:36 Dose: 20 mg Hydralazine HCl (Hydralazine 50 Mg Tablet) 50 mg PO Q8H [facility] Last Admin: 02/27/22 08:37 Dose: 50 mg Isosorbide Mononitrate (Isosorbide Mononitrate Er 60 Mg Tablet) 120 mg PO DAILY@08 PRN PRN Reason: Blood Pressure Losartan Potassium (Losartan 50 Mg Tablet) 25 mg PO Q12H [facility] Last Admin: 02/27/22 05:42 Dose: 25 mg Multivitamins Therapeutic (Multivitamin Therapeutic Tablet) 1 tab PO DAILY [facility] Last Admin: 02/27/22 08:36 Dose: 1 tab Non-Formulary Medication (Timolol 0.5% Op Soln) 1 each EYE-BOTH BID@ [facility] Last Admin: 02/27/22 08:37 Dose: Not Given Ondansetron HCl (Ondansetron 2 Mg/Ml Sdv 2 Ml) 4 mg IVP Q8H PRN PRN Reason: vomiting, or N/V if npo Oxybutynin Chloride (Oxybutynin Chloride Xl 5 Mg Tablet) 10 mg PO DAILY@08 [facility] Last Admin: 02/27/22 08:36 Dose: 10 mg Pantoprazole Sodium (Pantoprazole Dr 40 Mg Tablet) 40 mg PO DAILY@08 [facility] Last Admin: 02/27/22 08:37 Dose: 40 mg Vitals/I&O/Wt Last Vital Signs Temp 97.7 F 02/27/22 07:00 Pulse 79 02/27/22 19:27 Resp 18 02/27/22 19:24 BP 147/63 02/27/22 19:24 Pulse Ox 96 02/27/22 19:27 O2 Del Method 02/27/22 19:27 02/27/22 02/27/22 02/27/22 06:59 14:59 22:59 Intake Total 0 / 0 250 / 250 Output Total 100 / 100 350 / 450 Balance 0 / -600 -100 / -100 -100 / -200 Physical Exam Const: COMMON NORMALS: patient oriented x3 and alert GENERAL APPEARANCE: cooperative ORIENTATION/CONSCIOUSNESS: Yes awake HENMT: COMMON NORMALS: oropharynx normal Neck/C-Spine: COMMON NORMALS: no JVD Resp: COMMON NORMALS: normal respiratory effort and clear to auscultation bilaterally AUSCULTATION: clear to auscultation bilaterally Cardio: COMMON NORMALS: no JVD, regular rhythm, S1 normal heart sound present, S2 normal heart sound present and No murmurs present (Cardio) RATE: bradycardic RHYTHM: regular rhythm HEART SOUNDS: S1 normal heart sound present and S2 normal heart sound present GI: COMMON NORMALS: Normal to inspection, nondistended, normoactive bowel sounds present, Soft to palpation and non-tender PALPATION: Yes Soft to palpation Extremity: COMMON NORMALS: no joint enlargement and no pedal edema Neuro: COMMON NORMALS: patient oriented x3 and moves all extremities SENSORIUM/ORIENTATION: Yes alert Skin: COMMON NORMALS: no rashes or lesions noted GENERAL SKIN EXAM: no rashes or lesions noted Data 02/26/22 08:27 02/27/22 02:34 A&P Assessment and plan (1) Bradycardia with 31-40 beats per minute: Status post PPM today. Continue post pacemaker care. Telemetry monitoring. Requested CT angiogram chest for additional assessment for PE. Cannot be obtained due to difficulties with IV. We will see if study can be obtained once daily IV access obtained, although overall suspicion for hemodynamically significant PE is lower. (2) PE (pulmonary thromboembolism): Continue anticoagulation. (3) Cardiomegaly: Echo with 70% EF, moderate LVH. Moderate MVR and TVR. Mild aortic stenosis. Severe pulmonary hypertension. (4) Renal mass: Additional assessment by kidney ultrasound. Cortical hypodensities. Some are cysts and some too small to characterize. No large solid mass. (5) Abnormal CT scan, kidney: Low suspicion for UTI. Assessment [id number]. Follow-up urine culture, although UA not suggestive of UTI. Monitor on telemetry for possible A. fib/embolic etiology. (6) Abnormal urinalysis: Follow-up urine culture. So far no white count, watch for any fever. (7) Leg edema, right: No DVT on duplex. Mild swelling at night compared to left. Plan Heterogenous liver on CT: Check INR. Noted mild transaminitis. Concern for possible chronic liver injury/cirrhosis. Hepatitis panel unremarkable. Cardiomegaly, consideration of right heart failure, noted moderate TVR, severe pulmonary hypertension although right ventricle normal size and function. Infiltrated IV: Elevate arm, warm compress, neurovascular checks. Aortic valve sclerosis HTN: Increase dose of hydralazine, continue losartan. Monitor blood pressures. Hold metoprolol. Glaucoma HLD Rectocele Other problems noted. Attestations Medical Necessity Statement*: Continue admission for post PPM implantation. For symptomatic bradycardia, anticoagulation for PE Coding Level of Care Code Acute Military Logistics Specialist for [facility] Fwd Diagnoses Bradycardia with 31-40 beats per minute R00.1 PE (pulmonary thromboembolism) I26.99 Cardiomegaly I51.7 Renal mass N28.[address] scan, kidney R93.429 Abnormal urinalysis R82.90 Leg edema, right R60.0
[2022-02-28 00:22] VITALS: PULSE 73; O2SAT 96
[2022-02-28] MEDS: hyDRALAzine 50 mg Tablet PO ×2 (02:42→09:04)
[2022-02-28 02:58] VITALS: BP 163/80; PULSE 78; RESP 18; TEMP 36.9; O2SAT 97
[2022-02-28 03:52] LABS: Alanine Aminotransferase 23 U/L (0-33); Albumin Level 2.8 g/dL (3.5-5.2); Alkaline Phosphatase 77 U/L (35-105); Aspartate Amino Transferase 19 U/L (0-32); Blood Urea Nitrogen 27 mg/dL (8-23); Calcium 8.5 mg/dL (8.5-10.5); Carbon Dioxide 23 mmol/L (22-29); Chloride 101 mmol/L (98-107); Globulin 2.8 g/dL (1.3-4.6); Glucose 129 mg/dL (65-115); Magnesium 1.9 mg/dL (1.7-2.3); Osmolality Calculated 285 mOsm/kg (285-295); Sodium 134 mmol/L (136-145); Total Bilirubin 0.7 mg/dL (0.15-1.2); Total Protein 5.6 g/dL (6.6-8.7)
[2022-02-28 05:48] VITALS: PULSE 69
[2022-02-28 05:57] VITALS: BP 169/62
[2022-02-28] MEDS: losartan 50 mg Tablet 25 MG PO (05:57)
--- NOTE | 2022-02-28 06:00 | ECG_ITS ---
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 Measurements Intervals Paige Rate: 79 P: 74 VT: 191 QRS: -64 QRSD: 156 T: 103 QT: 439 QTc: 506 Interpretive Statements AV paced rhythm-a sensed, V paced Further interpretation is not possible Electronically Signed On 02-28-2022 15:43:57 ASSISTANT ASSOCIATE PROFESSOR by Kesha Toribio M.D. [id number]
[2022-02-28] MEDS: brimonidine 0.2% Op Soln 5 mL Btl 1 DROP EYE-BOTH (09:01)
[2022-02-28] MEDS: atorvastatin 40 mg Tablet 20 MG PO (09:01)
[2022-02-28] MEDS: multivitamin therapeutic Tablet 1 TAB PO (09:02)
[2022-02-28] MEDS: oxybutynin chloride XL 5 MG TABLET 10 MG PO (09:02)
[2022-02-28] MEDS: FUROsemide 20 mg Tablet PO (09:02)
[2022-02-28] MEDS: pantoprazole DR 40 mg Tablet PO (09:02)
--- NOTE | 2022-02-28 09:39 | XR_ITS ---
WS: [id number] Exam: XR chest 1V portable [id number] Date/Time of Exam: 02/28/2022 9:39 AM Reason For Exam: s/p pacemaker insertion Comparison 02/25/2022. The lungs are fully expanded. No infiltrates. Chronic interstitial changes noted bilaterally. Normal cardiomediastinal silhouette. A left-sided cardiac pacer has been placed. The leads appear to be in a ppropriate location. Bony structures are intact. Degenerative change of the right shoulder with findi ngs to to suggest a rotator cuff degeneration. XR/XR chest 1V portable [id number] IMPRESSION: 1. Cardiac pacer has been placed since prior study. The leads appear to be in a ppropriate location. 2. No acute cardiopulmonary finding.
[2022-02-28 10:00] VITALS: BP 198/83; PULSE 81; O2SAT 95
--- NOTE | 2022-02-28 10:10 | PM.PN ---
Subjective Subjective: Patient had the permanent pacemaker implantation yesterday. Pacemaker function appears to be appropriate today. Chest x-ray revealed proper positioning of the leads with no evidence of pneumothorax. Medications: Medication Review Details: Current Medications Acetaminophen (Acetaminophen 325 Mg Tablet) 650 mg PO Q6H PRN PRN Reason: Mild/Mod Pain Or Temp >/= 101 Atorvastatin Calcium (Atorvastatin 40 Mg Tablet) 20 mg PO DAILY@08 [facility] Last Admin: 02/28/22 09:01 Dose: 20 mg Brimonidine Tartrate (Brimonidine 0.2% Op Soln 5 Ml Btl) 1 drop EYE-BOTH BID@ [facility] Last Admin: 02/28/22 09:01 Dose: 1 drop Enoxaparin Sodium (Enoxaparin 40 Mg/0.4 Ml Syringe) 40 mg SUBCUT Q24H [facility] Last Admin: 02/27/22 17:35 Dose: Not Given Furosemide (Furosemide 20 Mg Tablet) 20 mg PO DAILY@08 [facility] Last Admin: 02/28/22 09:02 Dose: 20 mg Hydralazine HCl (Hydralazine 50 Mg Tablet) 50 mg PO Q8H [facility] Last Admin: 02/28/22 09:04 Dose: 50 mg Isosorbide Mononitrate (Isosorbide Mononitrate Er 60 Mg Tablet) 120 mg PO DAILY@08 PRN PRN Reason: Blood Pressure Losartan Potassium (Losartan 50 Mg Tablet) 25 mg PO Q12H [facility] Last Admin: 02/28/22 05:57 Dose: 25 mg Morphine Sulfate (Morphine 10 Mg/0.5 Ml Oral Liq Ud) 10 mg PO Q4H PRN PRN Reason: PAIN Multivitamins Therapeutic (Multivitamin Therapeutic Tablet) 1 tab PO DAILY [facility] Last Admin: 02/28/22 09:02 Dose: 1 tab Non-Formulary Medication (Timolol 0.5% Op Soln) 1 each EYE-BOTH BID@ [facility] Last Admin: 02/28/22 09:02 Dose: Not Given Ondansetron HCl (Ondansetron 2 Mg/Ml Sdv 2 Ml) 4 mg IVP Q8H PRN PRN Reason: vomiting, or N/V if npo Oxybutynin Chloride (Oxybutynin Chloride Xl 5 Mg Tablet) 10 mg PO DAILY@08 [facility] Last Admin: 02/28/22 09:02 Dose: 10 mg Pantoprazole Sodium (Pantoprazole Dr 40 Mg Tablet) 40 mg PO DAILY@08 [facility] Last Admin: 02/28/22 09:02 Dose: 40 mg Vitals/I&O/Wt Last Vital Signs Temp 98.5 F 02/28/22 02:58 Pulse 69 02/28/22 05:48 Resp 18 02/28/22 02:58 BP 169/62 02/28/22 05:57 Pulse Ox 97 02/28/22 02:58 O2 Del Method 02/28/22 02:58 02/27/22 02/28/22 02/28/22 22:59 06:59 14:59 Intake Total 420 / 420 120 / 540 Output Total 350 / 450 550 / 1000 Balance 70 / -30 -430 / -460 Physical Exam Narrative: GENERAL: The patient is alert and oriented times three. Not in any acute distress. HEENT: No significant pallor, icterus or lymphadenopathy.Oral cavity: There are no mucous membrane lesions. NECK: Trachea appears to be central. No masses noted. No JVD or thyromegaly appreciated. RESPIRATORY: Breath sounds are heard bilaterally with no rales or rhonchi. The pacemaker site appears to have no hematoma bleeding. BREASTS: Deferred. HEART: The heart sounds are normal. No S3 or S4. Systolic murmur at the base of the heart with no diastolic murmurs. No pericardial rub ABDOMEN: No vessel pulsations or distention. No tenderness. No organomegaly appreciated. Bowel sounds are normally heard. : Deferred. RECTAL: Deferred. LYMPHATIC: No lymphadenopathy noted in the neck. EXTREMITIES: No edema or cyanosis. No clubbing. MUSCULOSKELETAL: No acute joint deformities or swelling SKIN: There are no significant rashes or ecchymosis NEUROPSYCHIATRIC: The patient is alert and oriented x3. Appears to be in a good mood. No tremors or rigidity noted. Data 02/26/22 08:27 02/28/22 02:33 Other Labs: Laboratory Last Values WBC 8.0 10^3/uL (4.0-10.0) 02/26/22 08:27 RBC 3.86 10^6/uL (4.1-5.3) L 02/26/22 08:27 Hgb 11.6 g/dL (11.5-15.3) 02/26/22 08:27 Hct 34.9 % (37.0-47.0) L 02/26/22 08:27 MCV 90.4 fl (81-99) 02/26/22 08:27 MCH 30.1 pg (28.0-34.0) 02/26/22 08:27 MCHC 33.2 g/dL (30.0-36.0) 02/26/22 08: RDW 12.6 % (12.1-15.1) 02/26/22 08:27 Plt Count 176 10^3/cmm (130-400) 02/26/22 08:27 MPV 11.2 fL (7.4-10.4) H 02/26/22 08:27 Neut % (Auto) 67.8 % 02/26/22 08:27 Lymph % (Auto) 19.8 % 02/26/22 08:27 [place] % (Auto) 11.5 % 02/26/22 08: Eos % (Auto) 0.5 % 02/26/22 08:27 Baso % (Auto) 0.2 % 02/26/22 08:27 Neut # (Auto) 5.44 10^3/uL (1.8-7.7) 02/26/22 08:27 Lymph # (Auto) 1.6 10^3/uL (0.8-4.8) 02/26/22 08:27 [place] # (Auto) 0.9 10^3/uL (0.2-0.9) 02/26/22 08:27 Eos # (Auto) 0.0 10^3/uL (0.0-0.8) 02/26/22 08:27 Baso # (Auto) 0.0 10^3/uL (0.0-0.1) 02/26/22 08:27 Nucleated RBC % (auto) 0 % 02/26/22 08: Nucleated RBCs # 0.0 /100WBC 02/26/22 08:27 D-Dimer 1.78 ug/mIFEU (0-0.59) H 02/25/22 11:38 Sodium 134 mmol/L (136-145) L 02/28/22 02:33 Potassium 4.0 mmol/L (3.5-5.1) 02/28/22 02:33 Chloride 101 mmol/L (98-107) 02/28/22 02:33 Carbon Dioxide 23 mmol/L (22-29) 02/28/22 02:33 Anion Gap 14.0 (5-19) 02/28/22 02:33 BUN 27 mg/dL (8-23) H 02/28/22 02:33 Creatinine 1.1 mg/dL (0.5-0.9) H 02/28/22 02:33 GFR Calculation Not Reportable 02/28/22 02:33 Glucose 129 mg/dL (65-115) H 02/28/22 02:33 Calculated Osmolality 285 mOsm/kg (285-295) 02/28/22 02:33 Calcium 8.5 mg/dL (8.5-10.5) 02/28/22 02:33 Magnesium 1.9 mg/dL (1.7-2.3) 02/28/22 02:33 Total Bilirubin 0.7 mg/dL (0.15-1.2) 02/28/22 02:33 AST 19 U/L (0-32) 02/28/22 02:33 ALT 23 U/L (0-33) 02/28/22 02:33 Alkaline Phosphatase 77 U/L (35-105) 02/28/22 02:33 Troponin T Gen 5 ng/L 66 ng/L (0-10) H 02/26/22 08:27 Total Protein 5.6 g/dL (6.6-8.7) L 02/28/22 02:33 Albumin 2.8 g/dL (3.5-5.2) L 02/28/22 02:33 Globulin 2.8 g/dL (1.3-4.6) 02/28/22 02:33 TSH 2.37 uIU/mL (0.27-4.20) 02/25/22 11:38 Urine Color Yellow (Yellow) 02/25/22 11:55 Urine Appearance Clear (CLEAR) 02/25/22 11:55 Urine pH 6 (5-7) 02/25/22 11:55 Ur Specific [place] 1.015 (1.005-1.030) 02/25/22 11:55 Urine Protein 1+ (Negative) H 02/25/22 11:55 Urine Glucose (UA) Norm (Normal) 02/25/22 11:55 Urine Ketones Negative (Negative) 02/25/22 11:55 Urine Blood Neg (Negative) 02/25/22 11:55 Urine Nitrate Negative (Negative) 02/25/22 11:55 Urine Bilirubin Neg (Negative) 02/25/22 11:55 Urine Urobilinogen Norm mg/dL (Negative) 02/25/22 11:55 Ur Leukocyte Esterase Negative (Negative) 02/25/22 11:55 Urine RBC None /hpf (0-2) 02/25/22 11:55 Urine WBC 0-4 /hpf (0-5) H 02/25/22 11:55 Ur Squamous Epith Cells 10-15 /hpf (0-5) H 02/25/22 11:55 Amorphous Sediment Not Reportable 02/25/22 11:55 Urine Bacteria 4+ /hpf (NONE) H 02/25/22 11:55 Hepatitis A IgM Ab Non-reactive (Nonreactive) 02/25/22 18:18 Hep Bs Antigen Non-reactive (Nonreactive) 02/25/22 18:18 Hep B Core IgM Ab Non-reactive (Nonreactive) 02/25/22 18:18 Hepatitis C Antibody Non-reactive (Nonreactive) 02/25/22 18:18 A&P Assessment and plan (1) Symptomatic bradycardia: Patient status post permanent pacemaker evaluation. The pacing function appears to be appropriate. No new arrhythmias. Medically on the current medication. (2) Aortic valve sclerosis: Patient currently has mild aortic valve stenosis. May not require any specific intervention at this point (3) Chronic diastolic heart failure: Currently seems to be compensated. Patient may be carefully treated with Lasix (4) Benign essential hypertension: The blood pressure seems to be slowly getting under control. (5) Nonrheumatic mitral valve regurgitation: Patient has moderate mitral and tricuspid regurgitation. (6) Severe pulmonary hypertension: Currently asymptomatic. CTA revealed evidence of pulmonary embolism. Patient is going to be started on Eliquis tomorrow Plan The patient continues to remain stable, may be discharged home today. Will be seen in the clinic next week by the nurse practitioner for a wound check and pacemaker check. Will be seen by me in the office in 1 month Oral antibiotic for 5 days along with multivitamins Anticoagulation, starting tomorrow, as per Dr. Garcia Attestations Medical Necessity Statement*: Possible discharge home today Coding Level of Care Code Acute Sail Finisher Hand for [facility] Fwd History Expanded Problem Focused Exam Expanded Problem Focused Medical Decision Making Moderate Complexity Diagnoses Symptomatic bradycardia R00.1 Aortic valve sclerosis I35.8 Chronic diastolic heart failure I50.32 Benign essential hypertension I10 Nonrheumatic mitral valve regurgitation I34.0 Severe pulmonary hypertension I27.20
--- NOTE | 2022-02-28 11:12 | P.DS_ITS ---
Discharge Providers Date of Admission: 02/25/22 14:41 Date of Discharge: February 28, 2022 Attending Provider at Admission: Francesco Garcia Attending Provider at Discharge: Francesco Garcia Primary Care Provider: Mely Combs MD Diagnoses at Discharge Discharge Diagnosis (1) Symptomatic bradycardia: Status: Acute (2) Aortic valve sclerosis: Status: Acute (3) Chronic diastolic heart failure: Status: Acute (4) Benign essential hypertension: Status: Acute (5) Nonrheumatic mitral valve regurgitation: Status: Acute (6) Severe pulmonary hypertension: Status: Acute Reason for Visit Reason for Visit: ABDOMINAL PAIN Hospital Course Hospital Course Pleasant 86-year-old lady with HTN, DM, diastolic CHF, presented with ongoing fatigue, mild chest pressure, with finding of severe bradycardia heart rates of 30s in ER. With normal TSH, unremarkable electrolytes. Elevated blood pressure. On presentation also some abnormality on urinalysis, his urine has been full WBC, 4+ bacteria, SEC 10-15 with urine culture without growth. CT ab domen pelvis was obtained on presentation to some vague abdominal discomfort recently and some constipation, with finding of mild heterogenous appearance of the liver, study limited by lack of IV contrast, marked cardiomegaly, trace bilateral free fluid in the pelvis, marked perinephric stranding around each kidney with benign renal obstruction. Additional bilateral cortical masses alertable density which cannot be further characterized without IV contrast. No GI obstruction. She was referred by cardiology, found to be in complete heart block. TTE with normal ejection fraction, moderate MVR and TVR. Mild AVS. Severe pulmonary hypertension. Shortness of by duplex venous study of right lower extremity due to mild edema which showed no DVT. D-dimer found abnormal, additionally assessed by CTA with finding of bilateral nonocclusive segmental branch pulmonary emboli lower lobes. She has been requiring at times small amount of oxygen about 1 L although mostly maintaining saturation in 90s on room air on the left desaturated to 88 reportedly. Home oxygen study will be obtained. Otherwise hemodynamically remained stable but with elevated blood pressures. Antihypertensive regimen initially started on lower doses due to severe bradycardia was uptitrated, discharge hydralazine was increased to 50 mg dose. She underwent placement of permanent pacemaker uneventfully, is doing well today. With concern to avoid bleeding she is asked to hold anticoagulation today and start tomorrow morning. Please reassess renal function at next appointment. If remains steady she would benefit from additional assessment with contrast CT to further assess heterogenous appearance of the liver as well as further characterize kidney masses. These were followed up with renal ultrasound and some wear visualized to be cysts but others too small to characterize. No hydronephrosis seen. Physical Exam Narrative: Daughter at bedside Const: COMMON NORMALS: patient oriented x3 and alert GENERAL APPEARANCE: cooperative ORIENTATION/CONSCIOUSNESS: Yes awake HENMT: COMMON NORMALS: oropharynx normal Neck/C-Spine: COMMON NORMALS: no JVD Chest: OTHER: Left chest pacemaker dressing. Resp: COMMON NORMALS: normal respiratory effort and clear to auscultation bilaterally AUSCULTATION: clear to auscultation bilaterally Cardio: COMMON NORMALS: no JVD, regular rhythm, S1 normal heart sound present, S2 normal heart sound present and No murmurs present (Cardio) RATE: bradycardic RHYTHM: regular rhythm HEART SOUNDS: S1 normal heart sound present and S2 normal heart sound present GI: COMMON NORMALS: Normal to inspection, nondistended, normoactive bowel sounds present, Soft to palpation and non-tender PALPATION: Yes Soft to palpation Extremity: COMMON NORMALS: no joint enlargement and no pedal edema Neuro: COMMON NORMALS: patient oriented x3 and moves all extremities SENSORIUM/ORIENTATION: Yes alert Skin: COMMON NORMALS: no rashes or lesions noted GENERAL SKIN EXAM: no rashes or lesions noted Discharge Data Studies Completed and Pending Completed Studies During Hospitalization Category Date Time Status CT abdomen pelvis wo con [id number] Stat Cat Scan 02/25/22 11:[address] angio chest PE protcl [id number] Routine Cat Scan 02/27/22 12:51 Completed [employer] request for service Routine Exams 02/27/22 12:00 Completed XR chest 1V portable [id number] Routine Exams 02/28/22 09:39 Completed XR chest 1V portable [id number] Stat Exams 02/25/22 11:29 [place] [id number] Routine Ultrasound 02/25/22 17:09 Completed CV. echo complete* [id number] Routine Ultrasound 02/25/22 17:09 Completed US renal BI* [id number] Routine Ultrasound 02/25/22 17:09 Completed Radiology Impressions Abdomen/Pelvis CT 02/25/22 11:40 IMPRESSION: 1. Mild heterogeneous appearance of the liver. Otherwise very limited evaluation without IV contrast. 2. Marked cardiomegaly. 3. Very small amount of free fluid in the pelvis. 4. Marked perinephric stranding around each kidney with no renal obstruction. Correlate with possible urinary tract infection. There are additional bilateral cortical masses of variable density which cannot be further characterized without IV contrast. 5. No GI tract obstruction. Renal Ultrasound 02/25/22 17:09 IMPRESSION: 1. Mildly limited evaluation of the kidneys. No hydronephrosis. 2. Bilateral cortical hypodensities. Some of these are cysts and some are too small to characterize. No large solid mass. Chest CTA 02/27/22 12:51 IMPRESSION: 1. Bilateral, nonocclusive, segmental branch pulmonary emboli lower lobes. 2. No RIGHT heart strain. 3. Marked cardiac enlargement. 4. Mild pulmonary edema is very small bilateral pleural effusions. Pleural effusions have increased slightly in size since 02/25/2022. Chest X-Ray 02/28/22 09:39 IMPRESSION: 1. Cardiac pacer has been placed since prior study. The leads appear to be in appropriate location. 2. No acute cardiopulmonary finding. Laboratory Results WBC 8.0 10^3/uL (4.0-10.0) 02/26/22 08:27 RBC 3.86 10^6/uL (4.1-5.3) L 02/26/22 08:27 Hgb 11.6 g/dL (11.5-15.3) 02/26/22 08:27 Hct 34.9 % (37.0-47.0) L 02/26/22 08:27 MCV 90.4 fl (81-99) 02/26/22 08:27 MCH 30.1 pg (28.0-34.0) 02/26/22 08:27 MCHC 33.2 g/dL (30.0-36.0) 02/26/22 08:27 RDW 12.6 % (12.1-15.1) 02/26/22 08:27 Plt Count 176 10^3/cmm (130-400) 02/26/22 08:27 MPV 11.2 fL (7.4-10.4) H 02/26/22 08:27 Neut % (Auto) 67.8 % 02/26/22 08:27 Lymph % (Auto) 19.8 % 02/26/22 08:27 Metcalfe % (Auto) 11.5 % 02/26/22 08:27 Eos % (Auto) 0.5 % 02/26/22 08:27 Baso % (Auto) 0.2 % 02/26/22 08:27 Neut # (Auto) 5.44 10^3/uL (1.8-7.7) 02/26/22 08:27 Lymph # (Auto) 1.6 10^3/uL (0.8-4.8) 02/26/22 08:27 Metcalfe # (Auto) 0.9 10^3/uL (0.2-0.9) 02/26/22 08:27 Eos # (Auto) 0.0 10^3/uL (0.0-0.8) 02/26/22 08:27 Baso # (Auto) 0.0 10^3/uL (0.0-0.1) 02/26/22 08:27 Nucleated RBC % (auto) 0 % 02/26/22 08:27 Nucleated RBCs # 0.0 /100WBC 02/26/22 08:27 D-Dimer 1.78 ug/mIFEU (0-0.59) H 02/25/22 11:38 Sodium 134 mmol/L (136-145) L 02/28/22 02:33 Potassium 4.0 mmol/L (3.5-5.1) 02/28/22 02:33 Chloride 101 mmol/L (98-107) 02/28/22 02:33 Carbon Dioxide 23 mmol/L (22-29) 02/28/22 02:33 Anion Gap 14.0 (5-19) 02/28/22 02:33 BUN 27 mg/dL (8-23) H 02/28/22 02:33 Creatinine 1.1 mg/dL (0.5-0.9) H 02/28/22 02:33 GFR Calculation Not Reportable 02/28/22 02:33 Glucose 129 mg/dL (65-115) H 02/28/22 02:33 Calculated Osmolality 285 mOsm/kg (285-295) 02/28/22 02:33 Calcium 8.5 mg/dL (8.5-10.5) 02/28/22 02:33 Magnesium 1.9 mg/dL (1.7-2.3) 02/28/22 02:33 Total Bilirubin 0.7 mg/dL (0.15-1.2) 02/28/22 02:33 AST 19 U/L (0-32) 02/28/22 02:33 ALT 23 U/L (0-33) 02/28/22 02:33 Alkaline Phosphatase 77 U/L (35-105) 02/28/22 02:33 Troponin T Gen 5 ng/L 66 ng/L (0-10) H 02/26/22 08:27 Total Protein 5.6 g/dL (6.6-8.7) L 02/28/22 02:33 Albumin 2.8 g/dL (3.5-5.2) L 02/28/22 02:33 Globulin 2.8 g/dL (1.3-4.6) 02/28/22 02:33 TSH 2.37 uIU/mL (0.27-4.20) 02/25/22 11:38 Urine Color Yellow (Yellow) 02/25/22 11:55 Urine Appearance Clear (CLEAR) 02/25/22 11:55 Urine pH 6 (5-7) 02/25/22 11:55 Ur Specific Crawford 1.015 (1.005-1.030) 02/25/22 11:55 Urine Protein 1+ (Negative) H 02/25/22 11:55 Urine Glucose (UA) Norm (Normal) 02/25/22 11:55 Urine Ketones Negative (Negative) 02/25/22 11:55 Urine Blood Neg (Negative) 02/25/22 11:55 Urine Nitrate Negative (Negative) 02/25/22 11:55 Urine Bilirubin Neg (Negative) 02/25/22 11:55 Urine Urobilinogen Norm mg/dL (Negative) 02/25/22 11:55 Ur Leukocyte Esterase Negative (Negative) 02/25/22 11:55 Urine RBC None /hpf (0-2) 02/25/22 11:55 Urine WBC 0-4 /hpf (0-5) H 02/25/22 11:55 Ur Squamous Epith Cells 10-15 /hpf (0-5) H 02/25/22 11:55 Amorphous Sediment Not Reportable 02/25/22 11:55 Urine Bacteria 4+ /hpf (NONE) H 02/25/22 11:55 Hepatitis A IgM Ab Non-reactive (Nonreactive) 02/25/22 18:18 Hep Bs Antigen Non-reactive (Nonreactive) 02/25/22 18:18 Hep B Core IgM Ab Non-reactive (Nonreactive) 02/25/22 18:18 Hepatitis C Antibody Non-reactive (Nonreactive) 02/25/22 18:18 Vitals Last Vital Signs Temp 98.5 F 02/28/22 02:58 Pulse 81 02/28/22 10:00 Resp 18 02/28/22 02:58 BP 198/83 02/28/22 10:00 Pulse Ox 95 02/28/22 10:00 O2 Del Method 02/28/22 02:58 Discharge Plan Discharge Patient Disposition: Home Condition: Stable Prescriptions: New hydralazine 50 mg Tablet 50 mg PO Q8H Qty: 90 0RF multivitamin with folic acid [Thera] 400 mcg Tablet 1 tab PO DAILY 14 Days Qty: 14 0RF sulfamethoxazole-trimethoprim [Bactrim DS] 800-160 mg tablet 1 tab PO BID 5 Days Qty: 10 0RF Eliquis DVT-PE Treat 30D Start 5 mg (74 tabs) tablets,dose pack 5 mg PO BID Qty: 74 0RF Rx Instructions: 10mg BID for 7 days, then 5mg BID Continued brimonidine 0.2 % drops 1 drop ophthalmic (eye) BID@ atorvastatin 20 mg tablet 20 mg PO DAILY@08 PreserVision AREDS [phone] lrap-vy-pkty capsule 1 cap PO DAILY@08 timolol maleate 0.5 % drops 1 drop ophthalmic (eye) BID@ Rx Instructions: both eyes isosorbide mononitrate 120 mg tablet extended release 24 hr 120 mg PO DAILY@08 PRN (Reason: Blood Pressure) Rx Instructions: Do not take unless systolic drops below 100 per hospitalist furosemide 20 mg tablet 20 mg PO DAILY@08 oxybutynin chloride 10 mg tablet extended release 24hr 10 mg PO DAILY@08 pantoprazole 40 mg Tablet,Delayed Release (Dr/Ec) 40 mg PO DAILY@08 cholecalciferol (vitamin D3) [Vitamin D3] 25 mcg (1,000 unit) Capsule 25 mcg PO DAILY losartan 50 mg Tablet 50 mg PO Q12H 30 Days Qty: 60 3RF Rocklatan 0.02-0.005 % drops 1 drp ophthalmic (eye) BEDTIME Discontinued metoprolol tartrate 25 mg tablet 25 mg PO BID Qty: 180 3RF hydralazine 50 mg tablet 25 mg PO Q8H Discharge Orders: Discharge Order (Routine); Ordered 02/28/22 Ordered By: Francesco Garcia Referrals: Mely Combs MD [Primary Care Provider] - 4-7 days Kesha Toribio MD [Physician] - 1 month Huma Cervantes FNP [Nurse Practitioner] - 1 week Discharge Diet: Advance as tolerated, Cardiac and Diabetic Discharge Activity: Limit activity as instructed Patient Instructions: Apixaban (By mouth), Pacemaker (DC), Pulmonary Embolism (GEN), Chronic Hypertension (GEN), Post Pacemaker - Catarino Activity Restrictions/Additional Instructions: Limit the movements of the left shoulder to 45 degrees. Avoid any weightbearing in the left elbow for the next 6 weeks Appointment the [facility] to be seen by the nurse practitioner next week for a wound check and pacemaker check Appointment with me in the office in 1 month Patient may use the shoulder immobilizer at night and the arm to shoulder sling during the daytime. Start Eliquis tomorrow. Measure blood pressures 3 times daily, write down values to bring to your appointment for continued optimization of blood pressure control. Please have your primary doctor reassess your kidney function. If kidney function is staying steady without kidney injury you will need to additionally follow-up contrast CT study of the kidneys to further characterize multiple masses some of which are noted as cysts, others too small to characterize on ultrasound. Please also follow-up with your primary doctor regarding heterogenous appearance of liver on CT. This may be additionally better visualized on contrast CT as above. Discharge Attestations Time Spent in Discharge Care*: greater than 30 min Status at Discharge: Cognitive status at discharge: cognitively intact , Behavioral status at discharge: cooperative , Quality Metrics Clinical Quality Measures [ No reported AMI, CVA or VTE this stay] Coding Level of Care Code Acute Chg FW DC note Diagnoses Symptomatic bradycardia R00.1 Aortic valve sclerosis I35.8 Chronic diastolic heart failure I50.32 Benign essential hypertension I10 Nonrheumatic mitral valve regurgitation I34.0 Severe pulmonary hypertension I27.20
[2022-02-28 12:01] VITALS: O2SAT 93
== END 2022-02-28 15:30 | disposition home or self-care (01) ==
LOC: ER 14:44 → CSU 15:38 → ICU 02-26 00:51
PROVIDERS: Internal Medicine Cardiovascular Disease; Admitting Provider Internal Medicine; Emergency Provider Emergency Medicine; PCP Internal Medicine; Visit Provider Internal Medicine
DX: I44.2 Atrioventricular block, complete (principal); R00.1 Bradycardia, unspecified; I35.8 Other nonrheumatic aortic valve disorders; I11.0 Hypertensive heart disease with heart failure; I50.32 Chronic diastolic (congestive) heart failure; I34.0 Nonrheumatic mitral (valve) insufficiency; I27.20 Pulmonary hypertension, unspecified; E11.40 Type 2 diabetes mellitus with diabetic neuropathy, unspecified; R60.0 Localized edema; Z99.81 Dependence on supplemental oxygen; Z79.01 Long term (current) use of anticoagulants; K76.89 Other specified diseases of liver; H40.9 Unspecified glaucoma; E78.5 Hyperlipidemia, unspecified; I26.99 Other pulmonary embolism without acute cor pulmonale; R82.90 Unspecified abnormal findings in urine; R93.429 Abnormal radiologic findings on diagnostic imaging of unspecified kidney
CPT/HCPCS: 33208; 33210; 36415; 71045; 71275; 74176; 76770; 76857; 80053; 80074; 81001; 83735; 84443; 84484; 85025; 85378; 87086; 93005; 93306; 93971; 94760; 96360; 96361; 96365; 96367; 96372; 97166; 99152; 99153; 99285; C1769; C1779; C1786; C1887; C1894; G0378; J1650; J2250; J3010; J3370; J3490; J7030; J7050; Q9967

== ENCOUNTER → 2022-03-20 08:20 | Outpatient (BNVA) | payer MEDICARE, SELFPAY | PROVIDERS: PCP Internal Medicine; Visit Provider Nurse Practitioner Family | DX: Z95.0 Presence of cardiac pacemaker (principal) | CPT/HCPCS: 93280; 99213 ==

== ENCOUNTER → 2022-05-01 15:23 | Outpatient (BNVA) | payer MEDICARE, SELFPAY | PROVIDERS: PCP Internal Medicine; Visit Provider Internal Medicine Cardiovascular Disease | DX: R06.02 Shortness of breath (principal); I26.99 Other pulmonary embolism without acute cor pulmonale; I27.20 Pulmonary hypertension, unspecified | CPT/HCPCS: 36415; 80048; 99214 ==

== ENCOUNTER → 2022-07-14 08:27 | Outpatient (BNVA) | payer MEDICARE, SELFPAY | PROVIDERS: PCP Internal Medicine; Visit Provider Internal Medicine Pulmonary Disease | DX: I27.20 Pulmonary hypertension, unspecified (principal); I26.99 Other pulmonary embolism without acute cor pulmonale; Z79.01 Long term (current) use of anticoagulants; I50.32 Chronic diastolic (congestive) heart failure; I34.0 Nonrheumatic mitral (valve) insufficiency; I10 Essential (primary) hypertension | CPT/HCPCS: 99204 ==

== ENCOUNTER → 2022-09-12 08:22 | Outpatient (BNVA) | payer MEDICARE, SELFPAY | PROVIDERS: PCP Internal Medicine; Visit Provider Internal Medicine Pulmonary Disease | DX: I27.20 Pulmonary hypertension, unspecified (principal); I26.99 Other pulmonary embolism without acute cor pulmonale; Z79.01 Long term (current) use of anticoagulants; I50.32 Chronic diastolic (congestive) heart failure; I34.0 Nonrheumatic mitral (valve) insufficiency; I10 Essential (primary) hypertension | CPT/HCPCS: 99214 ==

== ENCOUNTER 2022-09-19 12:43 | Outpatient (CLI) | payer MEDICARE, SELFPAY ==
--- NOTE | 2022-09-19 14:00 | USCV_ITS ---
Marsha Pantoja Age: 87 Gender: F : 1935 Exam Date: 09/19/2022 13:39 Ordering Phys: Justo Navarro MD Technologist: Exam Location: [facility] [place] Indication: pulmarary embolism BP: 140 / 80 HR: 51 Rhythm: Sinus Technical Quality: Adequate MEASUREMENTS (Male / Female) Normal Values 2D ECHO LV Diastolic Diameter PLAX 4.3 cm 4.2 - 5.9 / 3.9 - 5.3 cm LV Systolic Diameter PLAX 1.5 cm IVS Diastolic Thickness 0.9 cm 0.6 - 1.0 / 0.6 - 0.9 cm IVS Systolic Thickness 1.4 cm LVPW Diastolic Thickness 1.2 cm 0.6 - 1.0 / 0.6 - 0.9 cm LVPW Systolic Thickness 1.3 cm LVOT Diameter 2.0 cm LV Ejection Fraction 2D Teich 91.7 % LV Ejection Fraction MOD 2C 67.0 % LV Ejection Fraction 2C AL 67.6 % LA Diameter 3.5 cm IVC Diameter 1.9 cm M-MODE Aortic Annulus Diameter 3.1 cm LA Ao Ratio MM 1.1 MV E Point Septal Separation 1.1 cm DOPPLER AV Peak Velocity 241.0 cm/s LVOT Peak Velocity 117.0 cm/s AV Area Cont Eq vti 1.6 cm squared AV Area Cont Eq pk 1.5 cm squared MV E' Velocity 7.0 cm/s TR Peak Velocity 315.8 cm/s TR Peak Gradient 39.9 mmHg TV Peak E Velocity 118.0 cm/s Right Atrial Pressure 3.0 mmHg Pulmonary Artery Systolic Pressu 42.9 mmHg RV Acceleration Time 0.1 s FINDINGS Left Ventricle Normal left ventricular size and systolic function, EF 63 %. No regional wall motion abnormalities. Right Ventricle The right ventricle is normal in size and function. Right Atrium The right atrium is normal in size. Left Atrium Mildly increased left atrial size. Mitral Valve Thickened mitral valve. Moderate-severe mitral valve regurgitation. Aortic Valve Thickened aortic valve. Features of aortic valve sclerosis. The peak velocity of 2.39 m/s Tricuspid Valve Trace to mild tricuspid valve regurgitation. Estimated pulmonary artery peak systolic pressure 40 mmHg Pulmonic Valve Pulmonic valve not well visualized. Pericardium Normal pericardium without effusion. Aorta Normal ascending aorta dimension. IVC The inferior vena cava appears normal. CONCLUSIONS Hree-point. Normal left ventricular size and systolic function, EF 63 %. No regional wall motion abnormalities. Mildly increased left atrial size. Thickened mitral valve. Moderate-severe mitral valve regurgitation. Estimated pulmonary artery peak systolic pressure 40 mmHg There is no pericardial effusion. There are no intracardiac masses. Compared to the study from 02/25/2022, there may not be a significant change Dr Kesha Toribio MD [facility] (Electronically Signed) Final Date: 20 September 2022 12:31 S
== END 2022-09-19 12:44 | disposition home or self-care (01) ==
PROVIDERS: PCP Internal Medicine; Visit Provider Internal Medicine Pulmonary Disease
DX: R06.02 Shortness of breath (principal); I34.0 Nonrheumatic mitral (valve) insufficiency
CPT/HCPCS: 93306; 99204

== ENCOUNTER 2022-10-24 10:03 | Outpatient (CLI) | payer MEDICARE, SELFPAY ==
--- NOTE | 2022-10-24 10:17 | XR_ITS ---
WS: [id number] Left hip, AP and frog-leg views, 10/24/2022 Clinical Data: PAIN IN LEFT HIP Comparison: None. Findings: No fractures or dislocations are seen. The left hip shows no erosion, sclerosis, narrowing, cyst form ation or fragmentation of the left femoral head.. The soft tissues are not remarkable. The adjacent p princess is normal. Impression: Negative left hip. Tonnis classification: grade 0: normal radiographs
== END 2022-10-24 10:04 | disposition home or self-care (01) ==
PROVIDERS: PCP Internal Medicine; Visit Provider Internal Medicine
DX: M25.552 Pain in left hip (principal)
CPT/HCPCS: 73502

== ENCOUNTER → 2022-11-06 13:14 | Outpatient (BNVA) | payer MEDICARE, SELFPAY | PROVIDERS: PCP Internal Medicine; Visit Provider Nurse Practitioner Family | DX: Z95.0 Presence of cardiac pacemaker (principal); I34.0 Nonrheumatic mitral (valve) insufficiency; I11.0 Hypertensive heart disease with heart failure; I50.32 Chronic diastolic (congestive) heart failure; Z79.01 Long term (current) use of anticoagulants | CPT/HCPCS: 99214 ==

== ENCOUNTER 2023-04-01 14:56 | Outpatient (CLI) | payer MEDICARE, SELFPAY ==
--- NOTE | 2023-04-01 15:06 | XR_ITS ---
WS: [id number] XR lumbar spine 2-3V* [id number] REASON FOR EXAM: DEGENERATIVE DISC DZ W/RADICULOPATHY/S/P FALL FINDINGS: 5 lumbar vertebrae. Severe rotatory scoliosis convex to right. Partial straightening of the lumbar lordosis. Mild compression deformities of L1, L2, L4, and L5. Moderate narrowing of the intervertebral disc spaces at L1-L2, L2-L3, L3-L4, and L5-S1. No significant listhesis. IMPRESSION: Significant degenerative spondylosis of the lumbar spine with progression compared to 09/02/2021.
== END 2023-04-01 14:57 | disposition home or self-care (01) ==
LOC: RAD 15:02
PROVIDERS: PCP Internal Medicine; Visit Provider Internal Medicine
DX: M51.16 Intervertebral disc disorders with radiculopathy, lumbar region (principal); M47.26 Other spondylosis with radiculopathy, lumbar region
CPT/HCPCS: 72100

== ENCOUNTER → 2023-05-21 14:55 | Outpatient (BNVA) | payer MEDICARE, SELFPAY | PROVIDERS: PCP Internal Medicine; Visit Provider Internal Medicine Cardiovascular Disease | DX: I11.0 Hypertensive heart disease with heart failure (principal); I50.32 Chronic diastolic (congestive) heart failure; I34.0 Nonrheumatic mitral (valve) insufficiency; I35.8 Other nonrheumatic aortic valve disorders; I26.99 Other pulmonary embolism without acute cor pulmonale; Z95.0 Presence of cardiac pacemaker; Z79.01 Long term (current) use of anticoagulants | CPT/HCPCS: 99214 ==

== ENCOUNTER → 2023-07-02 14:13 | Outpatient (BNVA) | payer MEDICARE, SELFPAY | PROVIDERS: PCP Internal Medicine; Visit Provider Internal Medicine Pulmonary Disease | DX: I26.99 Other pulmonary embolism without acute cor pulmonale (principal); I27.20 Pulmonary hypertension, unspecified | CPT/HCPCS: 99214 ==

== ENCOUNTER 2023-08-13 08:00 | Outpatient (CLI) | payer MEDICARE, SELFPAY ==
--- NOTE | 2023-08-13 08:04 | CT_ITS ---
WS: [id number] CT chest wo con [id number] HISTORY: WEIGHT LOSS/ABD BLOATING/DYSPHAGIA TECHNIQUE: Axial imaging performed through the thorax. Coronal and sagittal reformats are submitted. All CT scans at [facility] use at least one of these dose optimization techniques: automated exposure control; mA and/or kV adjustment per patient size (includes targeted exams where dose is mat ched to clinical indication); or iterative reconstruction. CONTRAST: None DLP: 242.02 mGy.cm COMPARISON: 02/27/2022 Lungs and central airway: Mild pulmonary hyperinflation. Quality of today's CT is much improved as co mpared to 02/27/2022. On the prior study there was significant motion artifact. Pulmonary nodules are identified today. This may have been present on the prior study but obscured by the motion. The larg est nodule is in the medial LEFT upper lobe measuring 12 x 9 mm. There are a few additional scattered 2 to 3 mm nodules. No pneumonia. No mass. Pleura: Normal. No pleural effusion. Heart and pericardium: Heart is enlarged. LEFT subclavian pacer/defibrillator. Mediastinum and astrid: There are small mediastinal and hilar lymph nodes. These were probably present on the prior examination and also 2017. Slightly better visualized today due to decreased breathing m otion artifact and resolved pleural effusions. Vessels: Normal size aortic and pulmonary artery. No coronary artery calcifications. Chest wall and lower neck: LEFT subclavian pacer/defibrillator. Upper abdomen: Cortical cyst RIGHT kidney 11 mm unchanged in size. Osseous structures: Degenerative scoliosis. Disc spaces are narrowed. CT/CT chest wo con [id number] IMPRESSION: 1. No pneumonia. 2. Resolved pleural effusions and improved imaging technique since 02/27/2022. 3. There are small bilateral pulmonary nodules. These were probably present on the prior study but partially obscured or not visualized due to the pleural ef fusions and motion artifact. The largest nodule is in the medial LEFT upper lob e measuring 12 x 9 mm. This nodule as not changed in size since 02/27/2022 but has increased since 2017. Due to long-term stability this is probably benign bu t low-grade neoplasm is not excluded. This can be evaluated in 6 months by rep eat chest CT with IV contrast or PET/CT imaging at this time. 4. Mediastinal and hilar lymph nodes appear to be stable. 5. Cardiomegaly.
== END 2023-08-13 08:01 | disposition home or self-care (01) ==
LOC: RAD 08:00
PROVIDERS: PCP Internal Medicine; Visit Provider Internal Medicine
DX: R63.4 Abnormal weight loss (principal); R13.10 Dysphagia, unspecified
CPT/HCPCS: 71250

== ENCOUNTER → 2023-08-25 08:28 | Outpatient (CLI) | payer MEDICARE, SELFPAY ==
--- NOTE | 2023-08-25 08:33 | CT_ITS ---
WS: [id number] CT ABDOMEN AND PELVIS WITH CONTRAST HISTORY: WEIGHT LOSS/ABDOMINAL BLOATING/DYSPHAGIA TECHNIQUE: Imaging performed of the abdomen and pelvis with IV contrast. Single phase imaging of the abdomen. Coronal and sagittal reformats are submitted. All CT scans at [facility] use at [address] one of these dose optimization techniques: automated exposure control; mA and/or kV adjustment per patient size (includes targeted exams where dose is matched to clinical indication); or iterative re construction. IV CONTRAST: Omnipaque 350; 80 mL IV. Oral contrast: Yes. DLP: 370.77 mGy.cm COMPARISON: 02/25/2022 Lower thorax: Motion and breathing artifact at the lung bases. The nodules described are better visua lized on the CT from 08/13/2023. There is mild pleural thickening at the lung bases. Moderate cardiomeg omkar. Small hiatal hernia. Liver/biliary system: Normal size with no intrahepatic dilatation. Gallbladder: Normal. No gallstones or wall thickening. No pericholecystic fluid. Pancreas: Normal size pancreas. 5 mm low-attenuation mass in the body of the pancreas was present in 2019 but better seen today due to less motion artifact. 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 Spleen: Normal size spleen. No mass or infarct. Adrenal glands: Normal. Right kidney: Mild cortical thinning. Several too small to characterize hypodensities and a few scatt ered cysts. No solid mass or obstruction. Left kidney: Mild diffuse cortical thinning. No obstruction or solid mass. There is an exophytic 7 mm nodule from the mid kidney which was present on the prior study but now of increased density suggest ing interval hemorrhage or protein content. Aorta: Mild atherosclerosis with no aneurysm. Lymphadenopathy: None. Free fluid: None. GI tract: Normally distended stomach. No small bowel obstruction. Diffuse moderate constipation. Mild diverticular burden in the distal colon. Abdominal wall: Fat containing umbilical hernia. Pelvis: No free fluid or adenopathy within the pelvis. Bones: Degenerative RIGHT scoliosis lumbar spine. CT/CT abdomen pelvis w con* [id number] IMPRESSION: 1. No acute abdominal or pelvic abnormalities are identified. 2. No adenopathy or ascites. 3. Moderate diffuse constipation. 4. Mild bilateral renal atrophy with small cysts and too small to characterize hypodensities. 5. Long-term stability 5 mm low-attenuation nodule in the mid body of the panc reas. Probably representing IPMN.
[2023-08-25] MEDS: iohexol 350 mg/mL 500 mL Btl (per mL) PO (10:39)
[2023-08-25] MEDS: iohexol 350 mg/mL 500 mL Btl (per mL) IV (10:40)
== END | disposition home or self-care (01) ==
LOC: RAD 08:28
PROVIDERS: PCP Internal Medicine; Visit Provider Internal Medicine
DX: R63.4 Abnormal weight loss (principal); R13.10 Dysphagia, unspecified; K59.00 Constipation, unspecified; K86.89 Other specified diseases of pancreas; K42.9 Umbilical hernia without obstruction or gangrene; M41.86 Other forms of scoliosis, lumbar region
CPT/HCPCS: 74177; Q9967

== ENCOUNTER 2023-09-01 10:42 | Outpatient (CLI) | payer MEDICARE, SELFPAY ==
--- NOTE | 2023-09-01 10:45 | FL_ITS ---
WS: [id number] Exam: FL barium swallow modifd [id number] Date/Time of Exam: 09/01/2023 10:45 AM Reason For Exam: Other dysphagia Fluoroscopy time: 3min [id number] minutes # of spot films: The exam was performed in conjunction with the speech therapy service. Oropharyngeal phase of swallowing was normal. The patient tolerated all consistencies of barium mixtu re foodstuffs without aspiration or penetration. The patient swallowed a barium tablet without diffic ulty however there was some dysmotility of the esophagus which required additional swallowing of pudd ing consistency barium to propel the tablet into the stomach. FL/FL barium swallow modifd [id number] IMPRESSION: 1. No indication of penetration or aspiration. 2. There was some dysmotility of the esophagus when the patient attempted to in gest a barium tablet. The tablet was propelled into the stomach by swallowing p udding consistency barium foodstuffs. A separate report and recommendations will follow from the speech therapy servi ce.
== END 2023-09-01 10:43 | disposition home or self-care (01) ==
LOC: RAD 10:42
PROVIDERS: PCP Internal Medicine; Visit Provider Internal Medicine
DX: R13.10 Dysphagia, unspecified (principal); R93.3 Abnormal findings on diagnostic imaging of other parts of digestive tract
CPT/HCPCS: 74230; 92611

== ENCOUNTER 2023-11-15 11:42 | Emergency (ER) | payer MEDICARE, SELFPAY ==
[2023-11-15] VITALS (9 sets, daily range): BP systolic 152–178; BP diastolic 70–100; PULSE 69–75; RESP 16; TEMP 36.6; O2SAT 89–95; BMI 28.1
--- NOTE | 2023-11-15 11:57 | XRR_ITS ---
PROCEDURE INFORMATION: Exam: XR Chest Exam date and time: 11/15/2023 12:32 PM Age: 88 years old Clinical indication: Shortness of breath; Prior surgery; Surgery date: 6+ months; Surgery type: Pacemaker; Patient HX: SOB; Weakness TECHNIQUE: Imaging protocol: Radiologic exam of the chest. Views: 1 view. COMPARISON: CT chest con [id number] 08/13/2023 8:20 AM FINDINGS: Lungs: Lung volumes are decreased. Mild pulmonary vascular congestion within the lower lung zones. No helen pulmonary edema or infiltrates detected. Pleural spaces: Unremarkable. No pleural effusion. No pneumothorax. Heart/Mediastinum: Heart is enlarged. Pacemaker wires extending to the right atrium right ventricle. Pulmonary vascular redistribution indicating elevated central venous pressure. Bones/joints: No acute bony abnormalities detected. XR/XR chest 1V portable [id number] IMPRESSION: Cardiomegaly with mild pulmonary vascular congestion likely secondary to CHF.
--- NOTE | 2023-11-15 12:17 | W.ED.WEAKNES ---
HPI - Weakness General: Chief complaint: Weakness Stated complaint: SOB Time Seen by Provider: 11/15/23 11:57 History of Present Illness: 88-year-old female with a history of aortic valve stenosis, chronic diastolic heart failure, complete heart block status post pacemaker placement and hyperlipidemia who presents to the emergency room with generalized weakness. Family states she has been complaining of feeling a little bit weak for the entire week but this morning she was doing some vacuuming and became much more weak. She is complaining that her forearms hurt on both sides after the vacuuming. No altered mental status. No focal motor deficits. No nausea or vomiting no chest pain. No shortness of breath. No dysuria. No fevers. No cough. Review of Systems Narrative: Constitutional symptoms: Negative except as documented in HPI. Skin symptoms: Negative except as documented in HPI. Eye symptoms: Negative except as documented in HPI. ENMT symptoms: Negative except as documented in HPI. Respiratory symptoms: Negative except as documented in HPI. Cardiovascular symptoms: Negative except as documented in HPI. Gastrointestinal symptoms: Negative except as documented in HPI. Genitourinary symptoms: Negative except as documented in HPI. Musculoskeletal symptoms: Negative except as documented in HPI. Neurologic symptoms: Negative except as documented in HPI. Psychiatric symptoms: Negative except as documented in HPI. Endocrine symptoms: Negative except as documented in HPI. [facility] ED PFSH: Medical History Pacemaker complete heart block Complete heart block Syncope Abdominal pain Fall Feeling light headed Aortic valve sclerosis Glaucoma Nonrheumatic mitral valve regurgitation Chronic diastolic heart failure Mixed hyperlipidemia Benign essential hypertension Rectocele 02/07/2019: Patient reports a bulge at the vaginal opening that has been present for at least 6 weeks. On exam, she was noted to have a first-degree vault prolapse, first-degree cystocele, and second to third-degree rectocele. Patient decided to follow for now. Urgency incontinence Surgical History Status post colonoscopy History of tubal ligation Hx of bilateral cataract extraction History of hysterectomy (~1976) KAROLINE, (unsure if has ovaries). Performed at [facility] in [place], [place] Family History Grandmother Diabetes Maternal Mother Heart disease Father Heart disease Daughter Heart disease Stroke Sister Heart disease Stroke Colon cancer Brother Hypertension Denies family history of Anesthesia complication Bleeding disorder Social History Smoking and tobacco/nicotine status: never used tobacco/nicotine Alcohol intake: never Substance/Drug Use: never Additional social history: Well balanced diet Physical Exam Narrative: EXAM NARRATIVE: General: Alert, no acute distress. Skin: Warm, dry. Head: Normocephalic, atraumatic. Neck: Supple, trachea midline. Eye: Extraocular movements are intact. Ears, nose, mouth and throat: mucosa moist. Cardiovascular: Regular, Normal peripheral perfusion. Respiratory: Lungs are clear to auscultation, respirations are non-labored, breath sounds are equal, Symmetrical chest wall expansion. Gastrointestinal: Soft, Nontender, Non distended Musculoskeletal: Normal ROM, no deformity. Neurological: Alert and oriented, No focal neurological deficit observed. Psychiatric: Cooperative, appropriate mood & affect. Course Vital Signs: Vital signs: Vital Signs Temperature 97.8 F 11/15/23 11:49 Pulse Rate 75 11/15/23 11:49 Respiratory Rate 16 11/15/23 11:49 Blood Pressure 158/76 11/15/23 12:55 Pulse Oximetry 91 11/15/23 12:55 Oxygen Delivery Me thod Room Air 11/15/23 11:49 MDM - Weakness Medical Decision Making Medical decision making: Differential diagnosis for patient presenting with generalized weakness including but not limited to and based on the above HPI, review of systems and physical exam: Sepsis. Dehydration. Renal failure. Electrolyte abnormalities. Anemia. Congestive heart failure. Hypotension. Coronary syndrome. Hepatitis. Cirrhosis. Infections such as pneumonia, urinary tract infection, Tick bourne illness, Cellulitis, Viral infections including influenza and Covid-19. Workup: labwork and lab/exam driven imaging ordered to evaluate, rule in and rule out above pathologies. Chest x-ray: Stable cardiomegaly. Pacemaker in place. No acute process. No infiltrate. No pneumothorax. This was reviewed and interpreted by myself the ER physician. Radiology had reported some possible early heart failure. She does not have any symptoms of heart failure. No orthopnea. No new lower extremity swelling. Just generalized weakness. EKG: Time 1222. Rate 64. Normal sinus rhythm, No ST-T changes, no ectopy, paced rhythm, this was reviewed and interpreted by myself the emergency room physician at 1226 Repeat EKG: Time 1343. Rate 67. Normal sinus rhythm, No ST-T changes, no ectopy, paced rhythm, this was reviewed and interpreted by myself the emergency room physician at 1345. No changes from EKG done in the ER today previously. Lab Review: Laboratory results were reviewed and interpreted by myself the emergency room physician. Lab work is unremarkable. No leukocytosis. Hemoglobin is 10. BUN and creatinine are 30 and 0.8 which is about her baseline. No UTI. Respiratory panel is negative. Serial troponins are not changed. This is her baseline and is secondary to her age and renal function. She is not having a non-STEMI. I reviewed the patient's medical record. Reexamination: Patient remained stable. No increased work of breathing. No altered mental status. No focal motor deficits. We have discussed her findings. She has an appointment with her primary on Thursday. They will return to the emergency room if things worsen. Overall workup is negative. Assessment and plan: Generalized weakness - Discharged home - Discussed findings and plan with patient. Answered any questions. - All laboratory values were reviewed and interpreted personally by myself, the ER physician - All imaging was reviewed and interpreted personally by myself, the ER physician. - Evaluation and treatment of this problem were appropriate in the emergency setting Lab Data 11/15/23 12:17 11/15/23 12:17 Radiology Impressions Chest X-Ray 11/15/23 11:57 IMPRESSION: Cardiomegaly with mild pulmonary vascular congestion likely secondary to CHF. Laboratory Results WBC 6.67 10^3/uL (3.29-11.43) 11/15/23 12:17 RBC 3.30 10^6/uL (3.85-5.65) L 11/15/23 12:17 Hgb 10.10 g/dL (11.27-16.99) L 11/15/23 12:17 Hct 31.2 % (36-47) L 11/15/23 12:17 MCV 94.5 fl (85-98) 11/15/23 12:17 MCH 30.6 pg (27-33) 11/15/23 12:17 MCHC 32.4 g/dL (30-55) 11/15/23 12:17 RDW 13.0 % (12.1-15.1) 11/15/23 12:17 Plt Count 192 10^3/cmm (157-399) 11/15/23 12:17 MPV 10.6 fL (7.4-10.4) H 11/15/23 12:17 Neut % (Auto) 70.8 % 11/15/23 12:17 Lymph % (Auto) 16.6 % 11/15/23 12:17 [place] % (Auto) 11.5 % 11/15/23 12:17 Eos % (Auto) 0.6 % 11/15/23 12:17 Baso % (Auto) 0.4 % 11/15/23 12:17 Neut # (Auto) 4.71 10^3/uL (1.8-7.7) 11/15/23 12:17 Lymph # (Auto) 1.1 10^3/uL (0.8-4.8) 11/15/23 12:17 [place] # (Auto) 0.8 10^3/uL (0.2-0.9) 11/15/23 12:17 Eos # (Auto) 0.0 10^3/uL (0.0-0.8) 11/15/23 12:17 Baso # (Auto) 0.0 10^3/uL (0.0-0.1) 11/15/23 12:17 Nucleated RBC % (auto) 0 % 11/15/23 12:17 Nucleated RBCs # 0.0 /100WBC 11/15/23 12:17 Sodium 137 mmol/L (136-145) 11/15/23 12:17 Potassium 4.2 mmol/L (3.5-5.1) 11/15/23 12:17 Chloride 104 mmol/L (98-107) 11/15/23 12:17 Carbon Dioxide 21 mmol/L (22-29) L 11/15/23 12:17 Anion Gap 16.2 (5-19) 11/15/23 12:17 BUN 30 mg/dL (8-23) H 11/15/23 12:17 Creatinine 0.8 mg/dL (0.5-0.9) 11/15/23 12:17 GFR Calculation Not Reportable 11/15/23 12:17 Glucose 135 mg/dL (65-115) H 11/15/23 12:17 Calculated Osmolality 292 mOsm/kg (285-295) 11/15/23 12:17 Lactic Acid 0.9 mmol/L (0.5-2.2) 11/15/23 12:17 Calcium 9.2 mg/dL (8.5-10.5) 11/15/23 12:17 Total Bilirubin 0.7 mg/dL (0.15-1.2) 11/15/23 12:17 AST 23 U/L (0-32) 11/15/23 12:17 ALT 15 U/L (0-33) 11/15/23 12:17 Alkaline Phosphatase 89 U/L (35-105) 11/15/23 12:17 Troponin T Baseline 33 ng/L (0-10) H 11/15/23 12:17 Troponin T 120 Minute 30.16 ng/L (0-10) H 11/15/23 14:12 Delta Troponin T -2.84 ABS# (0-10) L 11/15/23 14:12 C-Reactive Protein 3.0 mg/L (0.0-4.9) 11/15/23 12:17 Total Protein 6.7 g/dL (6.6-8.7) 11/15/23 12:17 Albumin 4.1 g/dL (3.5-5.2) 11/15/23 12:17 Globulin 2.6 g/dL (1.3-4.6) 11/15/23 12:17 Urine Color Yellow (Yellow) 11/15/23 13:17 Urine Appearance Cloudy (CLEAR) A 11/15/23 13:17 Urine pH 7.0 (5-7) 11/15/23 13:17 Ur Specific [place] 1.006 (1.005-1.030) 11/15/23 13:17 Urine Protein Negative (Negative) 11/15/23 13:17 Urine Glucose (UA) Negative (Normal) 11/15/23 13:17 Urine Ketones Negative (Negative) 11/15/23 13:17 Urine Blood Negative (Negative) 11/15/23 13:17 Urine Nitrate Negative (Negative) 11/15/23 13:17 Urine Bilirubin Negative (Negative) 11/15/23 13:17 Urine Urobilinogen 0.2 mg/dL (Negative) 11/15/23 13:17 Ur Leukocyte Esterase Negative (Negative) 11/15/23 13:17 Urine RBC 0-2 /hpf (0-2) 11/15/23 13:17 Urine WBC 0-5 /hpf (0-5) 11/15/23 13:17 Ur Squamous Epith Cells 0-5 /hpf (0-5) 11/15/23 13:17 Amorphous Sediment Not Reportable 11/15/23 13:17 Urine Bacteria None seen /hpf (NONE) 11/15/23 13:17 Hyaline Casts 0-4 /lpf H 11/15/23 13:17 Coronavirus (PCR) Negative (Negative) 11/15/23 12:55 Influenza A (PCR) Negative (Negative) 11/15/23 12:55 Influenza Type B (PCR) Negative (Negative) 11/15/23 12:55 RSV (PCR) Negative (Negative) 11/15/23 12:55 All radiology interpretation(s) finalized by discharge Discharge Plan Discharge Patient Disposition: Home Clinical Impression: Weakness Condition: Stable Prescriptions: New hydrocodone-acetaminophen 5-325 mg tablet 1 tab PO Q6H PRN (Reason: pain) Qty: 20 0RF diclofenac sodium 50 mg tablet,delayed release (DR/EC) 50 mg PO BID PRN (Reason: pain) Qty: 14 0RF Miralax 17 gram/dose powder 17 g PO DAILY Qty: 510 0RF Rx Instructions: Take 1 scoop daily while taking pain medications. No Action atorvastatin 20 mg tablet 20 mg PO DAILY@08 PreserVision AREDS [id number] capsule 1 cap PO DAILY@08 ferrous gluconate [Ferate] 240 mg (27 mg iron) tablet 240 mg PO DAILY metoprolol tartrate 50 mg tablet 50 mg PO BID Qty: 90 3RF isosorbide mononitrate 30 mg tablet extended release 24 hr 120 mg PO DAILY escitalopram oxalate 5 mg tablet 5 mg PO DAILY hydralazine 50 mg tablet 100 mg PO Q8H Qty: 540 3RF diltiazem HCl 30 mg tablet 30 mg PO TID Qty: 90 0RF Eliquis 2.5 mg tablet 2.5 mg PO BID Qty: 90 5RF furosemide 20 mg tablet 20 mg PO DAILY@08 pantoprazole 40 mg Tablet,Delayed Release (Dr/Ec) 40 mg PO DAILY@08 cholecalciferol (vitamin D3) [Vitamin D3] 25 mcg (1,000 unit) Capsule 25 mcg PO DAILY losartan 50 mg Tablet 50 mg PO Q12H 30 Days Qty: 60 3RF Discharge Orders: Discharge ED (Routine); Ordered 11/15/23 Ordered By: Rima Antonio Referrals: Mely Combs MD [Primary Care Provider] - Discharge Diet: Usual diet Discharge Activity: Increase activity as tolerated Activity Restrictions/Additional Instructions: Prescriptions were called and to your account in error. These were not for you. Please do not fill them. The pharmacy has been notified as well. Thank you for choosing [facility] for your healthcare needs today. Please realize this is an emergency room and that we are providing you with a medical screening exam and this may not be complete and all inclusive of all the testing and or work up that you may need to determine your ailment or severity of your illness. You have been screened and evaluated and felt safe for discharge. Health conditions do change or evolve sometimes and as such it is important that you follow up with your Primary Doctor to be re checked, 3-5 days is a general good time frame for follow up. You are always welcome to return to the ED for re assessment if your symptoms are worsening or you have new concerns Coding Level of Care Code ED Higher Level Teaching Assistant for Chg Fwd Related Data Home Medications Medication Instructions Recorded Confirmed atorvastatin 20 mg tablet 20 mg PO DAILY@03/23/19 07/02/23 vitamins A,C,M-bdzz-wiuciw 4,296 1 cap PO DAILY@03/23/19 07/02/23 mcg-226 mg-90 mg capsule (PreserVision AREDS) furosemide 20 mg tablet 20 mg PO DAILY@02/28/20 07/02/23 pantoprazole 40 mg tablet,delayed 40 mg PO DAILY@07/06/20 07/02/23 release cholecalciferol (vitamin D3) 25 25 mcg PO DAILY 02/24/21 07/02/23 mcg (1,000 unit) capsule (Vitamin D3) ferrous gluconate 240 mg (27 mg 240 mg PO DAILY 11/06/22 07/02/23 iron) tablet (Ferate) escitalopram oxalate 5 mg tablet 5 mg PO DAILY 05/21/23 07/02/23 isosorbide mononitrate 30 mg 120 mg PO DAILY 05/21/23 07/02/23 tablet,extended release 24 hr Previous Rx's Medication Instructions Recorded losartan 50 mg tablet 50 mg PO Q12H 30 days #60 tabs 02/26/21 hydralazine 50 mg tablet 100 mg (2 x 50 mg) PO Q8H #540 tabs 06/05/22 metoprolol tartrate 50 mg tablet 50 mg PO BID #90 tabs 08/12/23 diltiazem HCl 30 mg tablet 30 mg PO TID #90 tabs 09/02/23 apixaban 2.5 mg tablet (Eliquis) 2.5 mg PO BID #90 tabs 09/14/23 diclofenac sodium 50 mg 50 mg PO BID PRN pain #14 tabs 11/15/23 tablet,delayed release hydrocodone 5 mg-acetaminophen 325 1 tab PO Q6H PRN pain #20 tabs 11/15/23 mg tablet polyethylene glycol 3350 17 17 g PO DAILY #510 grams 11/15/23 gram/dose oral powder (Miralax) Allergies Allergy/AdvReac Type Severity Reaction Status Date / Time amlodipine Allergy Head feels Verified 07/02/23 14:30 funny, mental status change aspirin Allergy rash Verified 07/02/23 14:30 Penicillins Allergy rash Verified 07/02/23 14:30
--- NOTE | 2023-11-15 12:22 | ECG_ITS ---
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
[2023-11-15 12:30] LABS: Basophils % 0.4 %; Eosinophils % 0.6 %; Hematocrit 31.2 % (36-47); Lymphocytes # 1.1 10^3/uL (0.8-4.8); Lymphocytes % 16.6 %; Mean Corpuscular HGB Conc 32.4 g/dL (30-55); Mean Corpuscular Hemoglobin 30.6 pg (27-33); Mean Corpuscular Volume 94.5 fl (85-98); Mean Platelet Volume 10.6 fL (7.4-10.4); Monocytes # 0.8 10^3/uL (0.2-0.9); Monocytes % 11.5 %; Neutrophils # 4.71 10^3/uL (1.8-7.7); Neutrophils % 70.8 %; Nucleated Red Blood Cells % 0 %; Platelet Count 192 10^3/cmm (157-399); White Blood Count 6.67 10^3/uL (3.29-11.43)
[2023-11-15 12:48] LABS: Troponin(5th) Baseline 33 ng/L (0-10)
[2023-11-15 12:51] LABS: Alanine Aminotransferase 15 U/L (0-33); Albumin Level 4.1 g/dL (3.5-5.2); Alkaline Phosphatase 89 U/L (35-105); Aspartate Amino Transferase 23 U/L (0-32); Blood Urea Nitrogen 30 mg/dL (8-23); Calcium 9.2 mg/dL (8.5-10.5); Carbon Dioxide 21 mmol/L (22-29); Chloride 104 mmol/L (98-107); Creatinine Clr Calc Pharmacy 40.9976; Globulin 2.6 g/dL (1.3-4.6); Glucose 135 mg/dL (65-115); Osmolality Calculated 292 mOsm/kg (285-295); Sodium 137 mmol/L (136-145); Total Bilirubin 0.7 mg/dL (0.15-1.2); Total Protein 6.7 g/dL (6.6-8.7)
[2023-11-15 12:53] LABS: Lactic Sepsis W/Reflex 0.9 mmol/L (0.5-2.2)
[2023-11-15 13:22] LABS: Anion Gap 16.2 (5-19); Potassium 4.2 mmol/L (3.5-5.1)
[2023-11-15 13:25] LABS: Bilirubin Urine Negative (Negative); Blood Urine Negative (Negative); Glucose Urine UA Negative (Normal); Ketones Urine Negative (Negative); Leukocyte Esterase Urine Negative (Negative); Nitrate Urine Negative (Negative); Protein Urine Negative (Negative); Specific Gravity, Urine 1.006 (1.005-1.030); Urine Appearance Cloudy (CLEAR); Urine Color Yellow (Yellow); Urobilinogen Urine 0.2 mg/dL (Negative)
[2023-11-15 13:27] LABS: Bacteria Urine None Seen /hpf; Hyaline Casts Urine 0-4 /lpf; RBC Urine 0-2 /hpf (0-2); Squamous Epithelial Cell Urine 0-5 /hpf (0-5); WBC Urine 0-5 /hpf (0-5)
[2023-11-15 13:39] LABS: Covid PCR NEGATIVE (Negative); Influenza A NEGATIVE (Negative); Influenza B NEGATIVE (Negative); Respiratory Syncytial Virus Ce NEGATIVE (Negative)
--- NOTE | 2023-11-15 13:43 | ECG_ITS ---
[facility] Test Date: 2023-11-15 Pat Name: Marsha Pantoja Department: Room: Gender: Female Medical Genetics Director: : 1935 Requested By: Rima Villeda Order Number: [id number] Reading MD: MCKENNA EDGE Measurements Intervals [place] Rate: 67 P: 73 [place]: 182 QRS: -64 QRSD: 161 T: 100 QT: 467 QTc: 495 Interpretive Statements ELECTRONIC VENTRICULAR PACEMAKER ABNORMAL RHYTHM ECG Compared to ECG 11/15/2023 12:22:14 Atrial-paced complex(es) or rhythm no longer present Electronically Signed On 11-15-2023 18:55:38 CDT by MCKENNA EDGE [email or web address]
[2023-11-15 14:37] LABS: Troponin 5 2HR 30.16 ng/L (0-10)
[2023-11-15 14:41] LABS: Troponin 5 2HR Delta -2.84 ABS# (0-10)
== END 2023-11-15 15:42 | disposition home or self-care (01) ==
PROVIDERS: Emergency Provider Emergency Medicine; PCP Internal Medicine
DX: R53.1 Weakness (principal); Z79.01 Long term (current) use of anticoagulants; E78.2 Mixed hyperlipidemia; I11.0 Hypertensive heart disease with heart failure; I50.32 Chronic diastolic (congestive) heart failure
CPT/HCPCS: 0241U; 36415; 71045; 80053; 81001; 83605; 84484; 85025; 86140; 93005; 99285

== ENCOUNTER → 2023-11-27 09:09 | Outpatient (BNVA) | payer MEDICARE, SELFPAY | PROVIDERS: PCP Internal Medicine; Visit Provider Nurse Practitioner Family | DX: D64.9 Anemia, unspecified (principal); I11.0 Hypertensive heart disease with heart failure; I50.32 Chronic diastolic (congestive) heart failure; Z95.0 Presence of cardiac pacemaker | CPT/HCPCS: 99214 ==

== ENCOUNTER 2023-12-17 11:44 | Outpatient (CLI) | payer MEDICARE, SELFPAY ==
[2023-12-17 12:32] LABS: Basophils % 0.4 %; Eosinophils # 0.1 10^3/uL (0.0-0.8); Eosinophils % 1.2 %; Hematocrit 34.6 % (36-47); Lymphocytes # 1.5 10^3/uL (0.8-4.8); Mean Corpuscular HGB Conc 31.8 g/dL (30-55); Mean Corpuscular Hemoglobin 30.5 pg (27-33); Mean Corpuscular Volume 95.8 fl (85-98); Mean Platelet Volume 10.4 fL (7.4-10.4); Monocytes # 0.7 10^3/uL (0.2-0.9); Neutrophils # 4.31 10^3/uL (1.8-7.7); Neutrophils % 64.3 %; Nucleated Red Blood Cells % 0 %; Platelet Count 168 10^3/cmm (157-399); Red Blood Count 3.61 10^6/uL (3.85-5.65); Red Cell Distribution Width 13.1 % (12.1-15.1); White Blood Count 6.71 10^3/uL (3.29-11.43)
== END 2023-12-17 11:45 | disposition home or self-care (01) ==
LOC: LAB 11:45
PROVIDERS: PCP Internal Medicine; Visit Provider Nurse Practitioner Family
DX: D64.9 Anemia, unspecified (principal); I26.99 Other pulmonary embolism without acute cor pulmonale
CPT/HCPCS: 36415; 85025

== ENCOUNTER 2024-02-23 09:05 | Oncology outpatient (recurring) (ONCR) | payer MEDICARE, SELFPAY ==
[2024-02-16 10:49] LABS: Basophils % 0.5 %; Eosinophils # 0.1 10^3/uL (0.0-0.8); Eosinophils % 1.6 %; Hematocrit 35.1 % (36-47); Lymphocytes # 1.2 10^3/uL (0.8-4.8); Lymphocytes % 26.6 %; Mean Corpuscular HGB Conc 33.3 g/dL (30-55); Mean Corpuscular Hemoglobin 31.5 pg (27-33); Mean Corpuscular Volume 94.4 fl (85-98); Mean Platelet Volume 10.4 fL (7.4-10.4); Monocytes # 0.6 10^3/uL (0.2-0.9); Monocytes % 14.4 %; Neutrophils # 2.52 10^3/uL (1.8-7.7); Neutrophils % 56.7 %; Nucleated Red Blood Cells % 0 %; Platelet Count 171 10^3/cmm (157-399); Red Blood Count 3.72 10^6/uL (3.85-5.65); Red Cell Distribution Width 12.8 % (12.1-15.1); White Blood Count 4.44 10^3/uL (3.29-11.43)
[2024-02-16 11:29] LABS: Alanine Aminotransferase 14 U/L (0-33); Albumin Level 4.3 g/dL (3.5-5.2); Alkaline Phosphatase 77 U/L (35-105); Anion Gap 14.8 (5-19); Aspartate Amino Transferase 19 U/L (0-32); Blood Urea Nitrogen 34 mg/dL (8-23); Calcium 10.1 mg/dL (8.5-10.5); Carbon Dioxide 24 mmol/L (22-29); Chloride 101 mmol/L (98-107); Creatinine Clr Calc Pharmacy 36.5043; Ferritin 135 ng/mL (15-150); Globulin 3.2 g/dL (1.3-4.6); Glucose 105 mg/dL (65-115); Iron 69 ug/dL (37-145); Osmolality Calculated 290 mOsm/kg (285-295); Percent Saturation 25.5 % (20-50); Potassium 3.8 mmol/L (3.5-5.1); Sodium 136 mmol/L (136-145); Thyroid Stimulating Hormone 2.01 uIU/mL (0.27-4.20); Total Bilirubin 0.4 mg/dL (0.15-1.2); Total Iron Binding Capacity 270 mcg/dl; Total Protein 7.5 g/dL (6.6-8.7); Unsaturated Iron Binding 201 ug/dL (112-347); Vitamin B12 395 pg/mL (232-1245)
[2024-02-16 11:32] LABS: Folate Level 8.7 ng/mL (4.8-37.3)
[2024-02-17 09:39] LABS: PROTEIN, TOTAL 7.1 g/dL (6.1-8.1)
[2024-02-17 23:05] LABS: ABNORMAL PROTEIN BAND 1 0.2 g/dL (NONE DETECTED); ALPHA 1 GLOBULIN 0.3 g/dL (0.2-0.3); ALPHA 2 GLOBULIN 0.9 g/dL (0.5-0.9); BETA 1 GLOBULIN 0.4 g/dL (0.4-0.6); BETA 2 GLOBULIN 0.4 g/dL (0.2-0.5); GAMMA GLOBULIN 1.1 g/dL (0.8-1.7)
== END 2024-03-08 23:59 | disposition home or self-care (01) ==
PROVIDERS: PCP Internal Medicine; Visit Provider Internal Medicine Medical Oncology
DX: D64.9 Anemia, unspecified (principal); D47.2 Monoclonal gammopathy
CPT/HCPCS: 36415; 80053; 82607; 82728; 82746; 83540; 83550; 84155; 84165; 84443; 85025; 99204; 99213

== ENCOUNTER → 2024-05-30 15:12 | Outpatient (BNVA) | payer MEDICARE, SELFPAY | PROVIDERS: PCP Internal Medicine; Visit Provider Internal Medicine Cardiovascular Disease | DX: I10 Essential (primary) hypertension (principal); I50.32 Chronic diastolic (congestive) heart failure; I34.0 Nonrheumatic mitral (valve) insufficiency; I35.8 Other nonrheumatic aortic valve disorders; I26.99 Other pulmonary embolism without acute cor pulmonale; Z95.0 Presence of cardiac pacemaker | CPT/HCPCS: 99214 ==

== ENCOUNTER → 2024-07-13 11:07 | Outpatient (BNVA) | payer MEDICARE, SELFPAY | PROVIDERS: PCP Internal Medicine; Visit Provider Internal Medicine Cardiovascular Disease | DX: Z45.018 Encounter for adjustment and management of other part of cardiac pacemaker (principal) | CPT/HCPCS: 93296 ==

== ENCOUNTER → 2024-07-20 09:18 | Outpatient (BNVA) | payer MEDICARE, SELFPAY | PROVIDERS: PCP Internal Medicine; Visit Provider Podiatrist Foot & Ankle Surgery | DX: I73.9 Peripheral vascular disease, unspecified (principal); L60.3 Nail dystrophy | CPT/HCPCS: 11721; 99203 ==

== ENCOUNTER 2024-08-23 11:33 | Oncology outpatient (recurring) (ONCR) | payer MEDICARE, SELFPAY ==
[2024-08-23 12:37] LABS: Basophils % 0.7 %; Eosinophils # 0.1 10^3/uL (0.0-0.8); Hematocrit 30.1 % (36-47); Lymphocytes # 1.9 10^3/uL (0.8-4.8); Lymphocytes % 32.4 %; Mean Corpuscular HGB Conc 31.9 g/dL (30-55); Mean Corpuscular Hemoglobin 30.6 pg (27-33); Mean Corpuscular Volume 95.9 fl (85-98); Mean Platelet Volume 10.5 fL (7.4-10.4); Monocytes % 16.1 %; Neutrophils # 2.94 10^3/uL (1.8-7.7); Neutrophils % 49.5 %; Nucleated Red Blood Cells % 0 %; Platelet Count 177 10^3/cmm (157-399); Red Blood Count 3.14 10^6/uL (3.85-5.65); Red Cell Distribution Width 12.7 % (12.1-15.1); White Blood Count 5.95 10^3/uL (3.29-11.43)
[2024-08-23 12:56] LABS: Alanine Aminotransferase 12 U/L (0-33); Albumin Level 3.8 g/dL (3.5-5.2); Alkaline Phosphatase 69 U/L (35-105); Anion Gap 14.9 (5-19); Aspartate Amino Transferase 19 U/L (0-32); Blood Urea Nitrogen 34 mg/dL (8-23); Calcium 9.2 mg/dL (8.5-10.5); Carbon Dioxide 21 mmol/L (22-29); Chloride 101 mmol/L (98-107); Creatinine Clr Calc Pharmacy 44.6063; Globulin 2.8 g/dL (1.3-4.6); Glucose 92 mg/dL (65-115); Osmolality Calculated 283 mOsm/kg (285-295); Potassium 3.9 mmol/L (3.5-5.1); Sodium 133 mmol/L (136-145); Total Bilirubin 0.5 mg/dL (0.15-1.2); Total Protein 6.6 g/dL (6.6-8.7)
[2024-08-23 15:01] LABS: Immunoglobulin IGA 257 mg/dL (70-400); Immunoglobulin IGG 1116 mg/dL (700-1600); Immunoglobulin IGM 32 mg/dL (40-230)
[2024-08-24 05:29] LABS: PROTEIN, TOTAL 6.4 g/dL (6.1-8.1)
[2024-08-24 15:21] LABS: KAPPA LIGHT CHAIN, FREE, SERUM 38.2 mg/L (3.3-19.4); LAMBDA LIGHT CHAIN, FREE, SERU 47.7 mg/L (5.7-26.3)
[2024-08-25 20:15] LABS: ALBUMIN 3.6 g/dL (3.8-4.8); ALPHA 1 GLOBULIN 0.3 g/dL (0.2-0.3); ALPHA 2 GLOBULIN 0.7 g/dL (0.5-0.9); BETA 1 GLOBULIN 0.4 g/dL (0.4-0.6); BETA 2 GLOBULIN 0.4 g/dL (0.2-0.5)
[2024-08-27 04:10] LABS: Immunofixation Serum Normal pattern.
== END 2024-09-05 23:59 | disposition home or self-care (01) ==
PROVIDERS: PCP Internal Medicine; Visit Provider Internal Medicine Medical Oncology
DX: D47.2 Monoclonal gammopathy (principal); D64.9 Anemia, unspecified; R03.0 Elevated blood-pressure reading, without diagnosis of hypertension
CPT/HCPCS: 36415; 80053; 82784; 83883; 84155; 84165; 85025; 86334; 99214

== ENCOUNTER → 2024-10-17 08:50 | Outpatient (BNVA) | payer MEDICARE, SELFPAY | PROVIDERS: PCP Internal Medicine; Visit Provider Podiatrist Foot & Ankle Surgery | DX: I73.9 Peripheral vascular disease, unspecified (principal); L60.3 Nail dystrophy; L60.8 Other nail disorders | CPT/HCPCS: 11721 ==

== ENCOUNTER 2024-11-22 11:12 | Oncology outpatient (recurring) (ONCR) | payer MEDICARE, SELFPAY ==
[2024-11-22 11:45] LABS: Hematocrit 31.2 % (36-47); Hemoglobin 10.20 g/dL (11.27-16.99); Mean Corpuscular HGB Conc 32.7 g/dL (30-55); Mean Corpuscular Hemoglobin 30.5 pg (27-33); Mean Corpuscular Volume 93.4 fl (85-98); Nucleated Red Blood Cells % 0 %; Platelet Count 161 10^3/cmm (157-399); Red Blood Count 3.34 10^6/uL (3.85-5.65); White Blood Count 6.50 10^3/uL (3.29-11.43)
[2024-11-22 12:03] LABS: Alanine Aminotransferase 12 U/L (0-33); Albumin Level 3.9 g/dL (3.5-5.2); Alkaline Phosphatase 81 U/L (35-105); Anion Gap 14.7 (5-19); Aspartate Amino Transferase 19 U/L (0-32); Blood Urea Nitrogen 39 mg/dL (8-23); Calcium 9.3 mg/dL (8.5-10.5); Carbon Dioxide 23 mmol/L (22-29); Chloride 101 mmol/L (98-107); Globulin 2.9 g/dL (1.3-4.6); Glucose 119 mg/dL (65-115); Iron 85 ug/dL (37-145); Osmolality Calculated 291 mOsm/kg (285-295); Potassium 3.7 mmol/L (3.5-5.1); Sodium 135 mmol/L (136-145); Total Iron Binding Capacity 241 mcg/dl; Total Protein 6.8 g/dL (6.6-8.7); Unsaturated Iron Binding 156 ug/dL (112-347)
[2024-11-22 12:19] LABS: Vitamin B12 630 pg/mL (232-1245)
[2024-11-23 06:11] LABS: PROTEIN, TOTAL 6.4 g/dL (6.1-8.1)
[2024-11-23 20:09] LABS: ALPHA 1 GLOBULIN 0.3 g/dL (0.2-0.3); ALPHA 2 GLOBULIN 0.8 g/dL (0.5-0.9); BETA 1 GLOBULIN 0.4 g/dL (0.4-0.6); BETA 2 GLOBULIN 0.4 g/dL (0.2-0.5)
== END 2024-12-06 23:59 | disposition home or self-care (01) ==
PROVIDERS: PCP Internal Medicine; Visit Provider Internal Medicine Medical Oncology
DX: D47.2 Monoclonal gammopathy (principal); D64.9 Anemia, unspecified; R03.0 Elevated blood-pressure reading, without diagnosis of hypertension
CPT/HCPCS: 36415; 80053; 82607; 82746; 83540; 83550; 84155; 84165; 85025; 99214

== ENCOUNTER → 2024-11-25 10:50 | Outpatient (BNVA) | payer MEDICARE, SELFPAY | PROVIDERS: PCP Internal Medicine; Visit Provider Internal Medicine Cardiovascular Disease | DX: I11.0 Hypertensive heart disease with heart failure (principal); I50.32 Chronic diastolic (congestive) heart failure; I34.0 Nonrheumatic mitral (valve) insufficiency; I35.8 Other nonrheumatic aortic valve disorders; Z86.711 Personal history of pulmonary embolism; Z79.01 Long term (current) use of anticoagulants; Z95.0 Presence of cardiac pacemaker; R06.09 Other forms of dyspnea | CPT/HCPCS: 99214 ==

== ENCOUNTER 2025-01-11 09:00 | Oncology outpatient (recurring) (ONCR) | payer MEDICARE, SELFPAY ==
--- NOTE | 2025-01-11 15:00 | USCV_ITS ---
Marsha Pantoja Age: 89 Gender: F : 1935 Exam Date: 01/11/2025 09:20 Ordering Phys: Kesha Toribio MD ([email or web address]) Technologist: Exam Location: [facility] [place] Indication: murmur BP: / HR: 67 Rhythm: Sinus Technical Quality: Adequate MEASUREMENTS (Male / Female) Normal Values 2D ECHO LV Diastolic Diameter PLAX 4.5 cm 4.2 - 5.9 / 3.9 - 5.3 cm IVS Diastolic Thickness 1.3 cm 0.6 - 1.0 / 0.6 - 0.9 cm IVS Systolic Thickness 1.6 cm LVPW Diastolic Thickness 1.3 cm 0.6 - 1.0 / 0.6 - 0.9 cm LVPW Systolic Thickness 1.8 cm LVOT Diameter 1.9 cm LV Ejection Fraction 2D Teich 63.0 % LV Ejection Fraction MOD 4C 61.7 % LV Ejection Fraction MOD 2C 67.2 % LV Ejection Fraction 2C AL 67.5 % LA Diameter 4.7 cm RA Systolic Volume 4C AL 29.1 ml RA Systolic Volume 4C MOD 26.8 ml LA Sys Volume AL 74.6 cm cubed LA Sys Volume Index AL 43.6 cm cubed/m squared Aorta at Sinotubular Diameter 2.7 cm IVC Diameter 1.9 cm M-MODE LA Ao Ratio MM 1.4 AV Cusp Separation MM 1.8 cm DOPPLER AV Peak Velocity 237.0 cm/s LVOT Peak Velocity 128.0 cm/s AV Area Cont Eq vti 1.8 cm squared AV Area Cont Eq pk 1.6 cm squared MV Area PHT 3.9 cm squared Mitral E to A Ratio 1.4 TV Peak Velocity 355.5 cm/s TR Peak Velocity 373.0 cm/s TR Peak Gradient 55.7 mmHg TV Peak E Velocity 124.0 cm/s PV Peak Velocity 127.0 cm/s FINDINGS Left Ventricle Normal left ventricular size and systolic function, EF 67.5%.. Mild left ventricular hypertrophy. No regional wall motion abnormalities. Grade III/IV diastolic dysfunction (restrictive filling pattern), severely elevated filling pressures. Right Ventricle Normal right ventricular size and systolic function. Catheter/pacemaker wire in the right ventricular cavity. Right Atrium Normal right atrial size. Left Atrium Severely increased left atrial volume 43.6 ml/m squared. IA Septum Appears to be intact Mitral Valve Moderate-severe mitral valve regurgitation. Thickened mitral valve. Aortic Valve Aortic valve sclerosis. Tricuspid Valve Moderate tricuspid valve regurgitation. Estimated pulmonary artery peak systolic pressure 49 mmHg Pulmonic Valve Mild pulmonary valve regurgitation. Pericardium No pericardial effusion. Aorta Normal aortic annulus size. IVC Normal inferior vena cava. CONCLUSIONS Normal left ventricular size and systolic function, EF 67.5%.. Mild left ventricular hypertrophy. No regional wall motion abnormalities. Grade III/IV diastolic dysfunction (restrictive filling pattern), severely elevated filling pressures. Normal right ventricular size and systolic function. Catheter/pacemaker wire in the right ventricular cavity. Severely increased left atrial volume 43.6 ml/m squared. Moderate-severe mitral valve regurgitation. Thickened mitral valve. Aortic valve sclerosis. Moderate tricuspid valve regurgitation. Estimated pulmonary artery peak systolic pressure 49 mmHg. Mild pulmonary valve regurgitation. There is no pericardial effusion. There are no intracardiac masses. Compared to the study from 09/19/2022, there is worsening of the left-ventricular diastolic dysfunction. Dr Kesha Toribio MD FACC (Electronically Signed) Final Date: 13 January 2025 19:39 S
== END 2025-02-05 23:59 | disposition home or self-care (01) ==
LOC: RAD 09:02 → ONCMED 01-12 11:28
PROVIDERS: PCP Internal Medicine; Visit Provider Internal Medicine Medical Oncology
DX: I34.0 Nonrheumatic mitral (valve) insufficiency (principal); I50.32 Chronic diastolic (congestive) heart failure; I51.7 Cardiomegaly; R93.1 Abnormal findings on diagnostic imaging of heart and coronary circulation; Z95.0 Presence of cardiac pacemaker; I35.8 Other nonrheumatic aortic valve disorders; I07.1 Rheumatic tricuspid insufficiency; I37.1 Nonrheumatic pulmonary valve insufficiency
CPT/HCPCS: 93306

== ENCOUNTER → 2025-01-16 09:12 | Outpatient (BNVA) | payer MEDICARE, SELFPAY | PROVIDERS: PCP Internal Medicine; Visit Provider Podiatrist Foot & Ankle Surgery | DX: I73.9 Peripheral vascular disease, unspecified (principal); L60.3 Nail dystrophy; L60.8 Other nail disorders | CPT/HCPCS: 11721 ==

== ENCOUNTER → 2025-02-22 09:40 | Outpatient (BNVA) | payer MEDICARE, SELFPAY | PROVIDERS: PCP Internal Medicine; Visit Provider Internal Medicine Cardiovascular Disease | DX: Z45.018 Encounter for adjustment and management of other part of cardiac pacemaker (principal) | CPT/HCPCS: 93296 ==